=== PATIENT | male | born 1945 | race Caucasian/White ===

== ENCOUNTER → 2016-05-26 | Outpatient (CLI) | payer BC ==
[2016-05-31 09:54] LABS: 18KDIGG BAND REACTIVE (NONREACTIVE); 23KDIGG BAND REACTIVE (NONREACTIVE); 23KDIGM BAND NONREACTIVE (NONREACTIVE); 28KDIGG BAND NONREACTIVE (NONREACTIVE); 30KDIGG BAND NONREACTIVE (NONREACTIVE); 39KDIGG BAND NONREACTIVE (NONREACTIVE); 39KDIGM BAND NONREACTIVE (NONREACTIVE); 41KDIGG BAND REACTIVE (NONREACTIVE); 41KDIGM BAND NONREACTIVE (NONREACTIVE); 45KDIGG BAND REACTIVE (NONREACTIVE); 58KDIGG BAND NONREACTIVE (NONREACTIVE); 66KDIGG BAND REACTIVE (NONREACTIVE); 93KDIGG BAND NONREACTIVE (NONREACTIVE)
== END | disposition home or self-care (01) ==
LOC: C.LAB 16:11
PROVIDERS: ATTEND Family Medicine
DX: A69.20 Lyme disease, unspecified (principal); Z13.9 Encounter for screening, unspecified

== ENCOUNTER → 2017-07-09 | Outpatient (CLI) | payer BC ==
[2017-07-09 12:18] LABS: BASO % 0.5 %; BASO ABS # 0.04 K/uL (0-0.2); EOS % 6.2 %; EOS ABS # 0.46 K/uL (0-0.5); HEMATOCRIT 47.4 % (42-52); HEMOGLOBIN 15.8 g/dL (14.0-18.0); IG# 0.05 K/uL (0.00-0.02); LYMPH % 31.1 %; MEAN CELL VOLUME 86.5 fL (80-100); MEAN CORPUSCULAR HEMOGLOBIN 28.8 pg (25-34); MEAN CORPUSCULAR HGB CONC 33.3 g/dl (32-36); MEAN PLATELET VOLUME 11.2 fL (7.4-10.4); MONO ABS # 0.59 K/uL (0.11-0.59); NEUT % 53.5 %; NEUT ABS # 3.95 K/uL (1.4-6.5); PLATELET COUNT 197 K/uL (130-400); RED CELL DISTRIBUTION WIDTH CV 15.5 % (11.5-14.5); RED CELL DISTRIBUTION WIDTH SD 49.6 fL (36.4-46.3); WHITE BLOOD COUNT 7.39 K/uL (4.8-10.8)
[2017-07-09 12:41] LABS: HEMOGLOBIN A1C 6.3 % (4.5-5.6)
[2017-07-09 12:48] LABS: ALBUMIN 4.1 gm/dl (3.4-5.0); ALKALINE PHOSPHATASE 135 U/L (45-117); ALT/SGPT 50 U/L (12-78); AST/SGOT 22 U/L (15-37); BLOOD UREA NITROGEN 13 mg/dl (7-18); CALCIUM 9.4 mg/dl (8.5-10.1); CARBON DIOXIDE 26 mmol/L (21-32); CHOLESTEROL 132 mg/dl (0-200); CREATININE 1.26 mg/dl (0.60-1.40); GLUCOSE 137 mg/dl (70-99); LDL CHOLESTEROL CALCULATED 39 mg/dl; SODIUM 139 mmol/L (136-145); TOTAL PROTEIN 7.9 gm/dl (6.4-8.2); URIC ACID 5.3 mg/dl (2.6-7.2)
[2017-07-09 12:57] LABS: TRANSFERRIN 252 mg/dl (200-360)
[2017-07-09 13:30] LABS: HEP C IGG 13 YRS+OLDER_RFLX NEG (NEG)
[2017-07-09 13:32] LABS: TESTOSTERONE,TOTAL 418.1 ng/dl
--- NOTE | 2017-07-20 07:12 | CODING QUERY MEDICAL NECESSITY ---
CQSUPPORTING DIAGNOSIS NEEDED A supporting diagnosis is required for the test/procedure performed on this patient in order for us to be reimbursed by the patient's insurance. Please provide a supporting diagnosis for the following test/procedure listed below next to the test name along with your signature. *If there is no additional diagnosis for this patient that would support the following test/procedure please document that below next to the test/procedure. Test(s)/Procedure(s) that require a supporting diagnosis: DOS 07/09/17 PROSTATE SPECIFIC TEST Provider Signature: Date: Thank you Alvina Villegas [employer] Once completed, please kindly fax back to [phone] For questions please call [phone]
== END | disposition home or self-care (01) ==
LOC: C.LAB 09:44
PROVIDERS: ATTEND Family Medicine
DX: R73.09 Other abnormal glucose (principal); E55.9 Vitamin D deficiency, unspecified; D51.9 Vitamin B12 deficiency anemia, unspecified; E78.9 Disorder of lipoprotein metabolism, unspecified; R53.83 Other fatigue

== ENCOUNTER → 2017-11-28 | Outpatient (CLI) | payer BC ==
--- NOTE | 2017-11-28 15:30 | DIAGNOSTIC IMAGING REPORT ---
LUMBAR SPINE W/O CONTRAST HISTORY: Pain. Radiculopathy. LUMBAR RADICULOPATHY TECHNIQUE: Multiplanar multisequence MRI of the lumbar spine was performed without the use of contrast. COMPARISON: None. FINDINGS: For the purpose of the report the L5-S1 disc space will be located on axial image 23 of 25. Moderate to significant degenerative disc changes throughout. Degenerative sclerosis of the vertebral endplates. L1-L2: No significant central canal or neural foraminal narrowing. L2-L3: Minimal broad-based bulging disc. Mild multifactorial narrowing of spinal canal. Neuroforamina are patent bilaterally. L3-L4: Mild/moderate multifactorial narrowing of the spinal canal. Mild narrowing of the neuroforamina bilaterally. L4-L5: Mild right posterior disc herniation. Moderate impact upon the right anterior thecal sac with minimal narrowing right neuroforamina. L5-S1: No significant central canal or neural foraminal narrowing. IMPRESSION: 1. Considerable degenerative disc change at the entire lumbar region. 2. Moderate multifactorial narrowing of the spinal canal L3-L4 with moderate narrowing of the neuroforamina bilaterally. 3. Mild right posterior disc herniation L4-L5 4. Minimal broad-based disc bulge L2-L3 The above report was generated using voice recognition software. It may contain grammatical, syntax or spelling errors. Electronically signed by: Tommy Yeung M.D. 11/28/2017 3:29 PM Dictated Date/Time: 11/28/2017 3:27 PM
== END | disposition home or self-care (01) ==
LOC: C.MRI 13:53
PROVIDERS: ATTEND Family Medicine
DX: M54.16 Radiculopathy, lumbar region (principal); M99.73 Connective tissue and disc stenosis of intervertebral foramina of lumbar region

== ENCOUNTER 2023-01-29 17:10 | Observation (INO) ==
--- NOTE | 2023-01-29 17:21 | ED Triage Note ---
Date of Service January 29, 2023 History of Present Illness This patient was briefly evaluated while in triage. An abbreviated physical exam was performed. This patient is a 77-year-old Male who presents to the ED for evaluation of upper abd pain x 3 hours, vomited x 1, remote history of cholecystectomy. Took at T#3 for dental pain, had a flu shot earlier today and ate chili from [employer]. S/P CABG x 3 in August. Physical Exam GENERAL: NAD CARDIOVASCULAR: RRR RESPIRATORY: CTA ABDOMEN: BS x 4. Nontender to palpation. Initial orders for labs and / or imaging were placed and patient was placed in the waiting area until a bed is available. Please see further documentation for the full ED course.
--- NOTE | 2023-01-29 18:14 | XRay Report ---
XR chest 2V PA/lateral HISTORY: 77 years-old Male upper abdominal pain acute chest and abdominal pain COMPARISON: 09/10/2019 TECHNIQUE: PA and lateral views of the chest FINDINGS: Cardiac silhouette is enlarged. Prior median sternotomy and CABG. Pneumothorax, pleural effusion or a irspace consolidation. Cholecystectomy. Bones appear grossly intact. Eventration of the right hemidia phragm. IMPRESSION: Cardiomegaly without acute process. ACT 112: Negative or not required by law. The above report was generated using voice recognition software. It may contain grammatical, syntax o r spelling errors. Electronically signed by: Gaetano Chowdary M.D. 01/29/2023 6:13 PM
[2023-01-29 19:14] LABS: Basophils # (auto) 0.04 K/uL (0.00-0.20); Basophils % (auto) 0.3 %; Eosinophils # (auto) 0.12 K/uL (0.00-0.50); Eosinophils % (auto) 0.9 %; Hematocrit (blood only) 42.1 % (42.0-52.0); Hemoglobin 13.6 g/dl (14.0-18.0); Immature Granulocytes # (auto) 0.08 K/uL (0.01-0.20); Immature Granulocytes % (auto) 0.6 %; Lymphocytes # (auto) 1.64 K/uL (1.20-3.40); Lymphocytes % (auto) 12.9 %; Mean Corpuscular Hemoglobin 23.8 pg (25.0-34.0); Mean Corpuscular Hgb Conc 32.3 g/dL (32.0-36.0); Mean Corpuscular Volume 73.6 fL (80.0-100.0); Mean Platelet Volume 10.6 fL (9.4-12.4); Monocytes # (auto) 0.73 K/uL (0.11-0.59); Monocytes % (auto) 5.8 %; Neutrophils # (auto) 10.08 K/uL (1.40-6.50); Neutrophils % (auto) 79.5 %; Platelet Count 284 K/uL (130-400); RDW Coefficient of Variation 20.7 % (11.5-14.5); RDW Standard Deviation 52.9 fL (36.4-46.3); Red Blood Count 5.72 M/uL (4.70-6.10); White Blood Count 12.69 K/ul (4.8-10.8)
[2023-01-29 19:29] LABS: Alanine Aminotransferase 80 U/L (7-52); Albumin Globulin Ratio 1.5 (0.9-2); Albumin Level 4.5 gm/dl (3.4-5.0); Alkaline Phosphatase 113 U/L (34-104); Anion Gap 6 (3-11); Aspartate Aminotransferase 115 U/L (13-39); BUN Creatinine Ratio 11.2 (10-20); Bilirubin,Total 0.7 mg/dl (0.2-1.0); Blood Urea Nitrogen 16 mg/dl (6-23); Calcium 9.7 mg/dl (8.6-10.3); Carbon Dioxide 25 mmol/L (21-32); Chloride 109 mmol/L (98-107); Est GFR (Non-African American) 46.6 ml/min; Globulin 3.1 gm/dl (2.5-4.0); Glucose 132 mg/dl (70-99(Fasting)); Lipase 11 U/L (11-82); Potassium 4.4 mmol/L (3.5-5.1); Sodium 140 mmol/L (136-145); Total Protein 7.6 gm/dl (6.0-8.3)
[2023-01-29 19:37] LABS: Troponin I High Sensitivity 45.1 pg/ml (0-20)
[2023-01-29 19:42] LABS: Partial Thromboplastin Ratio 0.9; Partial Thromboplastin Time 25.2 Seconds (21.0-31.0); Prothrombin Time 10.9 Seconds (9.0-12.0)
[2023-01-29 19:43] LABS: Anisocytosis Present; Polychromasia 1+
[2023-01-29] MEDS ORDERED: OPTIRAY 320 100ml IV ONE (20:08)
--- NOTE | 2023-01-29 20:59 | CT Scan Report ---
Exam(s): CT ABDOMEN + PELVIS With Contrast IV Amt: 97ml optiray 320 EXAM: CT Abdomen and Pelvis With Intravenous Contrast CLINICAL HISTORY: Reason for exam: upper abdominal pain. TECHNIQUE: Axial computed tomography images of the abdomen and pelvis with intravenous contrast. CTDI is 24.1 mGy and DLP is 1187.88 mGy-cm. Automated exposure control was utilized for the study. A dose lowering technique was utilized adhering to the principles of ALARA. CONTRAST: Patient received 97ml optiray 320 of IV contrast COMPARISON: No relevant prior studies available. FINDINGS: Lung bases: Unremarkable. No mass. No consolidation. Heart: Cardiomegaly. Mediastinum: Small hiatal hernia. ABDOMEN: Liver: Unremarkable. No mass. Gallbladder and bile ducts: Cholecystectomy. No ductal dilation. Pancreas: Unremarkable. No mass. No ductal dilation. Spleen: Unremarkable. No splenomegaly. Adrenals: Unremarkable. No mass. Kidneys and ureters: No hydronephrosis or delayed nephrogram. Small renal cysts. Stomach and bowel: Diverticulosis, without acute diverticulitis. No small bowel obstruction. No free intraperitoneal air. PELVIS: Appendix: No findings to suggest acute appendicitis. Bladder: Unremarkable. No mass. Reproductive: Unremarkable as visualized. ABDOMEN and PELVIS: Intraperitoneal space: Unremarkable. No free air. No significant fluid collection. Bones/joints: Sternotomy wires. Degenerative changes of the spine. No acute fracture. No dislocation. Soft tissues: Small fat-containing LEFT inguinal hernia. Vasculature: Atherosclerotic changes of the aorta. No abdominal aortic aneurysm. Lymph nodes: Unremarkable. No enlarged lymph nodes. IMPRESSION: 1. Cholecystectomy. 2. Small hiatal hernia. 3. Small fat-containing LEFT inguinal hernia. 4. No hydronephrosis or delayed nephrogram. Small renal cysts. 5. Diverticulosis, without acute diverticulitis. No small bowel obstruction. No free intraperitoneal air. Electronically signed by: Theodore Corado MD 01/29/23 20:58 PM
[2023-01-29] MEDS ORDERED: SODIUM CHLORIDE 0.9% 1,000 ML IV ONE (21:34)
--- NOTE | 2023-01-29 21:36 | Emergency Department Note ---
Impression & Plan Elevated troponin DC ED Provider Note HPI: History obtained from patient. The patient is a 77-year-old gentleman with history of coronary artery disease, presents emergency department with chief complaint of transient abdominal pain. Patient states that earlier today he took some Tylenol with codeine on an empty stomach. Patient states shortly thereafter he developed some cramping in the mid/lower part of his abdomen as well as some nausea. Patient states that this lasted for several hours and then spontaneously resolved. On my initial assessment here in the ED the patient is hemodynamically stable, he states his symptoms are greatly improved however he still does have some mild nausea. He denies any current pain. Patient denies any chest pain or shortness of breath. ROS: - Per HPI Differential Diagnosis: Small bowel obstruction, acute gastritis, acute pancreatitis, acute cholecystitis, choledocholithiasis, acute coronary syndrome, pulmonary embolism, amongst other potential pathologies. *Outpatient medications and allergy history reviewed. *Pertinent external medical records reviewed PE: General: Alert HEENT: Normocephalic, trachea midline Eyes: Extraocular eye movement is intact, no scleral erythema Pulmonary: Clear to auscultation bilaterally, no wheezing Cardio: Regular rate and rhythm GI: Abdomen is soft to palpation : No suprapubic tenderness MSK: No evidence of trauma or malformation of the extremities, no edema Skin: No evidence of rash Neuro: Alert, no focal deficits Psychiatric: Cooperative INDEPENDENT INTERPRETATIONS: hospital monitor: (As interpreted by myself): - An order was placed for continuous cardiac monitoring - Patient was noted to be in sinus rhythm with a rate of 65 EKG: (As interpreted by myself): Rate: 64 Rhythm: Normal sinus rhythm Intervals: Within normal limits ST changes: No ST elevation Time: 0704 EKG #2: (As interpreted by myself): Rate: 66 Rhythm: Normal sinus rhythm Intervals: Within normal limits ST changes: No ST elevation Time: 2256 Interventions provided in ED: -Aspirin, IV heparin bolus and drip Medical Decision Making: IV was established lab work obtained, patient was placed on residential monitor. Lab work shows a leukocytosis of 12.69, hemoglobin is stable at 13.6, platelet count is normal, CMP does not show any critical findings, there is a mild transaminitis with AST of 115, ALT of 80, alk phos 113. Initial high- sensitivity troponin is only mildly elevated at 45. EKG per my interpretation does not show any acute ischemic changes. CT imaging of the abdomen pelvis was obtained that does not show any evidence of any acute surgical process. No evidence of any biliary ductal dilatation, patient is noted to be status post ch olecystectomy. Delta troponin was obtained given the patient's initial mildly elevated troponin, delta troponin was significantly elevated at 704.5, repeat EKG was also obtained at this time that does not show any acute ischemic changes/changes from previous EKG. On my reassessment patient remains pain-free, given significant elevation in troponin/delta troponin I do have suspicion that the patient's severe abdominal discomfort from earlier this afternoon may have represented ACS. Case was discussed with on-call cardiology, Dr. Rodriguez, and the patient was placed on a heparin drip and given aspirin. Case was discussed with the on-call hospitalist, Dr. العراقي, and the patient was placed to the hospitalist service in stable condition for further management. Consultants/Discussions held with other healthcare providers: -Hospitalist, Dr. العراقي -Cardiology, Dr. Rodriguez Disposition discussion held by myself with: -Patient * CRITICAL CARE TIME: (46) minutes -Management of NSTEMI with elevated troponin requiring initiation of heparin drip, time spent at the bedside, interpretation of diagnostic studies including multiple EKGs, discussion with other physicians including on-call cardiology as well as the hospitalist service for arrangement of admission Diagnosis: 1. NSTEMI, acute 2. Abdominal pain, acute 3. Transaminitis, acute, mild 4. Leukocytosis, acute Disposition: Admission Tommy Shelley DO Emergency Medicine Past Med/Surg History Medical History (Updated 01/30/23 @ 02:31 by Tommy Shelley DO) CAD (coronary artery disease) s/p BMS x 1 1999 Carotid artery stenosis Degenerative disc disease L4-L5 Diabetes mellitus, type 2 Encounter for pre-operative examination Exertional angina GERD (gastroesophageal reflux disease) Hypertension Hypothyroidism Umbilical hernia Surgical History H/O ventral hernia repair (12/18/18) Diagnostic Laprascopy and Open Ventral Hernia Repair Dr. Cowan 12-18-18 History of cardiac cath 2/2 abnormal stress test ~1999 AT [facility]. 1 stent to proximal RCA. History of cholecystectomy LAP History of colonoscopy History of coronary artery bypass graft 08/17/2022 History of heart artery stent x 1 to RCA 2002 History of herniorrhaphy RIGHT INGUINAL History of open reduction and internal fixation (ORIF) procedure RIGHT ANKLE History of ventral hernia repair 10/09/18 [facility] Hx of bilateral cataract extraction S/P CABG (coronary artery bypass graft) Family History Grandfather Stomach cancer Denies family history of Ovarian cancer Prostate cancer Myocardial infarction Breast cancer Lung cancer Colorectal cancer Social History Smoking Status: Never smoker Second Hand Exposure: No; Do You Dip or Chew Tobacco: No; Hx Alcohol Use: No Hx Substance Use: No Preferred Language: Hungarian Communication Ability: Effective Visual Impairment: No Limitations Medical Asst Required: No Beliefs That Will Affect Care: None marital status: / Current Living Situation: Alone and Personal Care Facility current occupational status: retired 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 How many Children do You have: 0 Feels Safe at Home: Yes Childhood Exposure to Second-Hand Smoke: No caffeine: Yes Dental Care, Regularly: Yes Physical Activity Frequency: 1-2 Times per Week Seatbelt Use: always Sunscreen Use: Yes Assistive Devices: Glasses Allergies Allergies Allergy/AdvReac Type Severity Reaction Status Date / Time benzoyl peroxide Allergy Intermediate Rash Verified 11/14/22 11:27 adhesive tape AdvReac Mild Rash Verified 11/14/22 11:27 Home Meds Home Medications Medication Instructions Recorded Confirmed docusate sodium 100 mg capsule 100 mg PO DAILY PRN Constipation 09/05/22 (Colace) ondansetron HCl 4 mg tablet 4 mg PO Q8H PRN Nausea And Vomiting 09/05/22 acetaminophen 500 mg tablet 1,000 mg PO Q8 01/29/23 01/29/23 (Tylenol Extra Strength) aspirin 81 mg tablet,delayed 81 mg PO QPM 01/29/23 01/29/23 release cholecalciferol (vitamin D3) 125 125 mcg PO QAM 01/29/23 01/29/23 mcg (5,000 unit) tablet (Vitamin D3) coenzyme Q10 100 mg capsule 100 mg PO QAM 01/29/23 01/29/23 (CoQ-10) glucosamine sulf dipot 1 cap PO QAM 01/29/23 01/29/23 chlr,msm,chond 550 mg-C 30 mg-gracia 1 mg capsule (Glucosamine Chondroitin) irbesartan 75 mg tablet 75 mg PO QAM 01/29/23 01/29/23 metoprolol succinate 100 mg 100 mg PO QPM 01/29/23 01/29/23 tablet,extended release 24 hr hcpbobjfjxhc-zeygleao-ximirm tablet 1 tab PO QAM 01/29/23 01/29/23 rosuvastatin 20 mg tablet 20 mg PO QPM 01/29/23 01/29/23 semaglutide 0.25 mg or 0.5 mg (2 40 mg subcut WK 01/29/23 01/29/23 mg/1.5 mL) subcutaneous pen injector tamsulosin 0.4 mg capsule 0.4 mg PO QPM 01/29/23 01/29/23 Previous Rx's Medication Instructions Recorded levothyroxine 75 mcg tablet 75 mcg PO QAM #90 tabs 08/08/22 (Synthroid) omeprazole 20 mg capsule,delayed 20 mg PO DAILY #90 caps 08/08/22 release Results & Data (ED) Vital Signs Vital Signs - 24 hr 01/29/23 17:17 01/29/23 19:06 01/29/23 22:00 Temperature 36.8 C Temperature Source Temporal Artery Scan Pulse Rate 98 H Pulse Rate [Right Finger] 70 64 Pulse Rate from SpO2 Sensor Pulse Rhythm [Right Finger] Regular Regular Pulse Strength [Right Finger] Normal Normal Respiratory Rate 20 20 16 Respiratory Effort / Characteristics Non-Labored Spontaneous Non-Labored Spontaneous Respiratory Depth Normal Normal Respiratory Pattern Regular Regular Blood Pressure 167/79 H Blood Pressure [Right Arm] 163/75 H 167/92 H Blood Pressure Mean 108 Blood Pressure Mean [Right Arm] 104 117 Blood Pressure Position [Right Arm] Sitting Pulse Oximetry 100 99 96 Oxygen Delivery Method Room Air Room Air Room Air Sepsis Recent Fever Within 48 Hours No Sepsis New/Unexplained Change in Mental Status N/A Sepsis Action Taken by Nursing No Action Required 01/29/23 23:00 01/29/23 23:32 01/30/23 00:00 Temperature Temperature Source Pulse Rate 73 71 Pulse Rate [Right Finger] Pulse Rate from SpO2 Sensor 68 Pulse Rhythm [Right Finger] Pulse Strength [Right Finger] Respiratory Rate 14 18 Respiratory Effort / Characteristics Respiratory Depth Respiratory Pattern Blood Pressure 174/109 H 189/90 H Blood Pressure [Right Arm] Blood Pressure Mean 130 123 Blood Pressure Mean [Right Arm] Blood Pressure Position [Right Arm] Pulse Oximetry 98 100 Oxygen Delivery Method Sepsis Recent Fever Within 48 Hours Sepsis New/Unexplained Change in Mental Status Sepsis Action Taken by Nursing Laboratory Data 01/29/23 18:57 01/29/23 18:57 Lab Results 01/29/23 01/29/23 01/29/23 Range/Units 18:57 18:57 18:57 WBC 12.69 H (4.8-10.8) K/ul RBC 5.72 (4.70-6.10) M/uL Hgb 13.6 L (14.0-18.0) g/dl Hct 42.1 (42.0-52.0) % MCV 73.6 L (80.0-100.0) fL MCH 23.8 L (25.0-34.0) pg MCHC 32.3 (32.0-36.0) g/dL RDW Std Deviation 52.9 H (36.4-46.3) fL RDW Coeff of Jenna 20.7 H (11.5-14.5) % Plt Count 284 (130-400) K/uL MPV 10.6 (9.4-12.4) fL Immature Gran % (Auto) 0.6 % Neut % (Auto) 79.5 % Lymph % (Auto) 12.9 % Jerome % (Auto) 5.8 % Eos % (Auto) 0.9 % Baso % (Auto) 0.3 % Neut # (Auto) 10.08 H (1.40-6.50) K/uL Lymph # (Auto) 1.64 (1.20-3.40) K/uL Jerome # (Auto) 0.73 H (0.11-0.59) K/uL Eos # (Auto) 0.12 (0.00-0.50) K/uL Baso # (Auto) 0.04 (0.00-0.20) K/uL Immature Gran # (Auto) 0.08 (0.01-0.20) K/uL Polychromasia 1+ Anisocytosis Present PT 10.9 (9.0-12.0) Seconds INR 1.0 (0.9-1.1) APTT 25.2 (21.0-31.0) Seconds PTT Ratio 0.9 Sodium 140 (136-145) mmol/L Potassium 4.4 (3.5-5.1) mmol/L Chloride 109 H (98-107) mmol/L Carbon Dioxide 25 (21-32) mmol/L Anion Gap 6 (3-11) BUN 16 (6-23) mg/dl Creatinine 1.43 H (0.6-1.4) mg/dl Est Cr Clr Drug Dosing Not Reportable Est GFR ( Amer) 54.0 ml/min Est GFR (Non-Af Amer) 46.6 ml/min BUN/Creatinine Ratio 11.2 (10-20) Glucose 132 H (70-99(Fasting)) mg/dl Calcium 9.7 (8.6-10.3) mg/dl Magnesium (1.7-2.4) mg/dl Total Bilirubin 0.7 (0.2-1.0) mg/dl AST 115 H (13-39) U/L ALT 80 H (7-52) U/L Alkaline Phosphatase 113 H (34-104) U/L Total Creatine Kinase (30-223) U/L Troponin I High Sens 45.1 H (0-20) pg/ml Total Protein 7.6 (6.0-8.3) gm/dl Albumin 4.5 (3.4-5.0) gm/dl Globulin 3.1 (2.5-4.0) gm/dl Albumin/Globulin Ratio 1.5 (0.9-2) Lipase 11 (11-82) U/L 01/29/23 Range/Units 21:50 WBC (4.8-10.8) K/ul RBC (4.70-6.10) M/uL Hgb (14.0-18.0) g/dl Hct (42.0-52.0) % MCV (80.0-100.0) fL MCH (25.0-34.0) pg MCHC (32.0-36.0) g/dL RDW Std Deviation (36.4-46.3) fL RDW Coeff of Jenna (11.5-14.5) % Plt Count (130-400) K/uL MPV (9.4-12.4) fL Immature Gran % (Auto) % Neut % (Auto) % Lymph % (Auto) % Jerome % (Auto) % Eos % (Auto) % Baso % (Auto) % Neut # (Auto) (1.40-6.50) K/uL Lymph # (Auto) (1.20-3.40) K/uL Jerome # (Auto) (0.11-0.59) K/uL Eos # (Auto) (0.00-0.50) K/uL Baso # (Auto) (0.00-0.20) K/uL Immature Gran # (Auto) (0.01-0.20) K/uL Polychromasia Anisocytosis PT (9.0-12.0) Seconds INR (0.9-1.1) APTT (21.0-31.0) Seconds PTT Ratio Sodium (136-145) mmol/L Potassium (3.5-5.1) mmol/L Chloride (98-107) mmol/L Carbon Dioxide (21-32) mmol/L Anion Gap (3-11) BUN (6-23) mg/dl Creatinine (0.6-1.4) mg/dl Est Cr Clr Drug Dosing Est GFR ( Amer) ml/min Est GFR (Non-Af Amer) ml/min BUN/Creatinine Ratio (10-20) Glucose (70-99(Fasting)) mg/dl Calcium (8.6-10.3) mg/dl Magnesium 2.1 (1.7-2.4) mg/dl Total Bilirubin (0.2-1.0) mg/dl AST (13-39) U/L ALT (7-52) U/L Alkaline Phosphatase (34-104) U/L Total Creatine Kinase 215 (30-223) U/L Troponin I High Sens 704.5 H* D (0-20) pg/ml Total Protein (6.0-8.3) gm/dl Albumin (3.4-5.0) gm/dl Globulin (2.5-4.0) gm/dl Albumin/Globulin Ratio (0.9-2) Lipase (11-82) U/L Administered Medications Heparin Sodium/Dextrose (Heparin Sodium/Dextrose) 25,000 units in 500 mls @ 26 mls/hr IV .[id number] [facility]; Protocol Stop: 02/28/23 22:59 Last Admin: 01/30/23 01:05 Dose: 1,300 units/hr, 26 mls/hr Documented By: LISSETTE Co-signed By: MARTHA Tramadol HCl (Tramadol Hcl 50 Mg Tablet) 50 mg PO Q4H PRN PRN Reason: Dental Pain Stop: 03/01/23 00:43 Last Admin: 01/30/23 01:49 Dose: 50 mg Documented By: LISSETTE Discontinued Medications Aspirin (Aspirin Chew 324 Mg) 324 mg PO NOW STA Stop: 01/29/23 23:19 Last Admin: 01/30/23 01:05 Dose: 324 mg Documented By: LISSETTE Heparin Sodium (Porcine) (Heparin Sod (Porcine) 1000 Unit/Ml) 1 units IV NOW ONE Stop: 01/29/23 23:01 Last Admin: 01/30/23 01:04 Dose: 6,000 units Documented By: LISSETTE Co-signed By: MARTHA Sodium Chloride (Nss) 1,000 mls @ 999 mls/hr IV .Q1H1M ONE Stop: 01/29/23 22:34 Last Infusion: 01/30/23 01:10 Dose: 0 mls/hr Documented By: Admin: 01/29/23 21:43 Dose: 999 mls/hr Documented By: LISSETTE Ioversol (Optiray 320 100ml) 97 ml IV ONCE ONE Stop: 01/29/23 20:09 Last Admin: 01/29/23 20:08 Dose: 97 ml Documented By: TORITO Imaging Data Radiologist's Impression: Abdomen/Pelvis CT 01/29/23 17:21 Exam(s): CT ABDOMEN + PELVIS With Contrast IV Amt: 97ml optiray 320 EXAM: CT Abdomen and Pelvis With Intravenous Contrast CLINICAL HISTORY: Reason for exam: upper abdominal pain. TECHNIQUE: Axial computed tomography images of the abdomen and pelvis with intravenous contrast. CTDI is 24.1 mGy and DLP is 1187.88 mGy-cm. Automated exposure control was utilized for the study. A dose lowering technique was utilized adhering to the principles of ALARA. CONTRAST: Patient received 97ml optiray 320 of IV contrast COMPARISON: No relevant prior studies available. FINDINGS: Lung bases: Unremarkable. No mass. No consolidation. Heart: Cardiomegaly. Mediastinum: Small hiatal hernia. ABDOMEN: Liver: Unremarkable. No mass. Gallbladder and bile ducts: Cholecystectomy. No ductal dilation. Pancreas: Unremarkable. No mass. No ductal dilation. Spleen: Unremarkable. No splenomegaly. Adrenals: Unremarkable. No mass. Kidneys and ureters: No hydronephrosis or delayed nephrogram. Small renal cysts. Stomach and bowel: Diverticulosis, without acute diverticulitis. No small bowel obstruction. No free intraperitoneal air. PELVIS: Appendix: No findings to suggest acute appendicitis. Bladder: Unremarkable. No mass. Reproductive: Unremarkable as visualized. ABDOMEN and PELVIS: Intraperitoneal space: Unremarkable. No free air. No significant fluid collection. Bones/joints: Sternotomy wires. Degenerative changes of the spine. No acute fracture. No dislocation. Soft tissues: Small fat-containing LEFT inguinal hernia. Vasculature: Atherosclerotic changes of the aorta. No abdominal aortic aneurysm. Lymph nodes: Unremarkable. No enlarged lymph nodes. IMPRESSION: 1. Cholecystectomy. 2. Small hiatal hernia. 3. Small fat-containing LEFT inguinal hernia. 4. No hydronephrosis or delayed nephrogram. Small renal cysts. 5. Diverticulosis, without acute diverticulitis. No small bowel obstruction. No free intraperitoneal air. Electronically signed by: Theodore Corado MD 01/29/23 20:58 PM Chest X-Ray 01/29/23 17:22 XR chest 2V PA/lateral HISTORY: 77 years-old Male upper abdominal pain acute chest and abdominal pain COMPARISON: 09/10/2019 TECHNIQUE: PA and lateral views of the chest FINDINGS: Cardiac silhouette is enlarged. Prior median sternotomy and CABG. Pneumothorax, pleural effusion or airspace consolidation. Cholecystectomy. Bones appear grossly intact. Eventration of the right hemidiaphragm. IMPRESSION: Cardiomegaly without acute process. ACT 112: Negative or not required by law. The above report was generated using voice recognition software. It may contain grammatical, syntax or spelling errors. Electronically signed by: Gaetano Chowdary M.D. 01/29/2023 6:13 PM Discharge Plan Visit Data Chief Complaint: Abdominal Pain Stated Complaint: ABDOMINAL PAIN ED Provider: Tommy Shelley Discharge Problem: Elevated troponin Patient Disposition: Admitted As Inpatient Discharge Instructions Interventions: ED Discharge Assessment Last Done: 01/30/23 00:43
[2023-01-29] MEDS ORDERED: Heparin IV Adult Wt-Based Standard WITH Bolus Protocol IV STA (22:45)
[2023-01-29 22:48] LABS: Troponin I High Sensitivity 704.5 pg/ml (0-20)
[2023-01-29] MEDS ORDERED: HEPARIN SOD (PORCINE) 1000 UNIT/ML IV ONE (23:00)
[2023-01-29] MEDS ORDERED: HEPARIN SODIUM/DEXTROSE 25,000 UNITS/500 ML BAG IV SCH (23:00)
[2023-01-29] MEDS ORDERED: ASPIRIN CHEW 324 MG PO STA (23:18)
--- NOTE | 2023-01-30 00:06 | History & Physical Report ---
Date of Service January 30, 2023 Assessment & Plan (1) Abdominal pain: Plan: 77yo male with history of CAD s/p RCA stent, s/p CABG x 3V presenting with acute episode of abdominal cramping that occurred today around 14:00. Pain severe 7/10, intermittent, associated diaphoresis, nausea and vomiting. Labs as above with mild neutrophil predominant leukocytosis with WBC=12.69, mildly elevated PBG=471, ALT=80, IC=675. Tbili is normal. Troponin at 18:57 mildly elevated at 45.1 with repeat at 21:50 increased to 704.5. Etiology of abdominal pain unknown. Very atypical pain description for cardiac event, however, concerning given patient's history and troponin level. ?cholecystitis, choledocholithiasis given abnormal liver studies. Patient currently without chest or abdominal discomfort. -Admit to medical with telemetry -Trend troponin -Check 2D echocardiogram to assess for new WMA -Repeat LFTs in AM -Check CK -Heparin gtt -EKG with chest pain as needed -Nitro as needed -Cardiology consultation appreciated -Continue ASA 81mg po daily -Continue Metoprolol 100mg po qPM -Hold Irbesartan for now - resume pending results of Cr with AM labs -Continue Crestor (2) Elevated troponin: Plan: Patient with known CAD. Troponin increase 45.- --> 704.5. No acute ischemic changes present on EKG. Presently without discomfort. -property assessment monitor -Trend troponin -Heparin gtt -Continue home cardiac medications - ASA, Metoprolol, Crestor -Holding Irbesartan for now (3) Hyperlipidemia: Plan: Chronic. Stable -Continue Crestor (4) Diabetes: Plan: Chronic. Well controlled. Last HgbA1C on 09/05/22 = 5.9. Patient is on Semaglutide - is due for a shot today -Hold Semaglutide for now -Lantus 5u BID -ISS (5) Hypertension: Plan: Blood pressure elevated -Continue Metoprolol -Hold Irbesartan for now, resume if Cr improves in AM (6) GERD (gastroesophageal reflux disease): Plan: Chronic. Stable -Protonix 40mg po daily while inpatient Dental pain -Patient is scheduled for a root canal on 01/31/23 AM -Consider abdominal pain as possible reaction to his Codeine pill? -Tramadol 50mg po q4 hours as needed for pain F/E/N - Saline lock. Electrolytes WNL. AHA/CC diet as tolerated Ppx - On heparin gtt. Protonix 40mg po daily Code - DNR/DNI per discussion with patient Dispo - Admit to medical with telemetry History of Present Illness Chief Complaint: abdominal pain Primary Care Provider: Cristobal Winter MD Jose Manuel Rdz is a pleasant 77yo male with history of CAD s/p BMS to pRCA placed in 2001. Patient had an abnormal stress echo with subsequent cardiac catheterization performed on 07/21/2022 which revealed severe multivessel disease. He had a CABG x 3V (OLSON-LAD, SVG-ramus, SVG-OM - performed at [facility] [place]. Buchanan) on 08/17/2022. 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 Patient was in his usual state of health today. He had a flu shot around 13:00 then he then took a Tylenol #3 tablet with Codeine for his ongoing tooth pain on an empty stomach. He then had some chili to eat from [employer]. Shortly after that around 14:00 he developed severe mid and lower abdominal pain and cramping, 7/10 in intensity, intermittent and non-radiating. He had some diaphoresis as well as nausea with one episode of non-bloody/non-bilious vomiting. The symptoms lasted approximately 4-6 hours and have since resolved. He denies chest pain, cough, SOB, dizziness or syncope. No urinary complaints. No edema, orthopnea or weight gain. No additional complaints at this time. Presently chest pain free. In the ER he is afebrile, HD stable, NAD ER Course: ASA ordered Heparin gtt ordered Allergies Allergy/AdvReac Type Severity Reaction Status Date / Time benzoyl peroxide Allergy Intermediate Rash Verified 11/14/22 11:27 adhesive tape AdvReac Mild Rash Verified 11/14/22 11:27 Home Medications Medication Instructions Recorded Confirmed Type levothyroxine 75 mcg tablet 75 mcg PO QAM #90 tabs 08/08/22 01/29/23 Rx (Synthroid) omeprazole 20 mg capsule,delayed 20 mg PO DAILY #90 caps 08/08/22 01/29/23 Rx release docusate sodium 100 mg capsule 100 mg PO DAILY PRN Constipation 09/05/22 1 History (Colace) ondansetron HCl 4 mg tablet 4 mg PO Q8H PRN Nausea And Vomiting 09/05/22 01/29/23 History acetaminophen 500 mg tablet 1,000 mg PO Q8 01/29/23 01/29/23 History (Tylenol Extra Strength) aspirin 81 mg tablet,delayed 81 mg PO QPM 01/29/23 01/29/23 History release cholecalciferol (vitamin D3) 125 125 mcg PO QAM 01/29/23 01/29/23 History mcg (5,000 unit) tablet (Vitamin D3) coenzyme Q10 100 mg capsule 100 mg PO QAM 01/29/23 01/29/23 History (CoQ-10) glucosamine sulf dipot 1 cap PO QAM 01/29/23 01/29/23 History chlr,msm,chond 550 mg-C 30 mg-gracia 1 mg capsule (Glucosamine Chondroitin) irbesartan 75 mg tablet 75 mg PO QAM 01/29/23 01/29/23 History metoprolol succinate 100 mg 100 mg PO QPM 01/29/23 01/29/23 History tablet,extended release 24 hr nqqypbtcpxsq-rzayjxos-gyehxp tablet 1 tab PO QAM 01/29/23 01/29/23 History rosuvastatin 20 mg tablet 20 mg PO QPM 01/29/23 01/29/23 History semaglutide 0.25 mg or 0.5 mg (2 40 mg subcut WK 01/29/23 01/29/23 History mg/1.5 mL) subcutaneous pen injector tamsulosin 0.4 mg capsule 0.4 mg PO QPM 01/29/23 01/29/23 History Past Med/Surg History Medical History (Updated 01/30/23 @ 00:29 by Kiley العراقي DO) CAD (coronary artery disease) s/p BMS x 1 1999 Carotid artery stenosis Degenerative disc disease L4-L5 Diabetes mellitus, type 2 Encounter for pre-operative examination Exertional angina GERD (gastroesophageal reflux disease) Hypertension Hypothyroidism Umbilical hernia Surgical History H/O ventral hernia repair (12/18/18) Diagnostic Laprascopy and Open Ventral Hernia Repair Dr. Cowan 12-18-18 History of cardiac cath 2/2 abnormal stress test ~1999 AT [facility]. 1 stent to proximal RCA. History of cholecystectomy LAP History of colonoscopy History of coronary artery bypass graft 08/17/2022 History of heart artery stent x 1 to RCA 2001 History of herniorrhaphy RIGHT INGUINAL History of open reduction and internal fixation (ORIF) procedure RIGHT ANKLE History of ventral hernia repair 10/09/18 [facility] Hx of bilateral cataract extraction S/P CABG (coronary artery bypass graft) Family History Grandfather Stomach cancer Denies family history of Ovarian cancer Prostate cancer Myocardial infarction Breast cancer Lung cancer Colorectal cancer Social History Smoking Status: Never smoker Second Hand Exposure: No; Do You Dip or Chew Tobacco: No; Hx Alcohol Use: No Hx Substance Use: No Preferred Language: Icelandic Communication Ability: Effective Visual Impairment: No Limitations Sewing Room Supervisor Required: No Beliefs That Will Affect Care: None marital status: / Current Living Situation: Alone and Personal Care Facility current occupational status: retired 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 How many Children do You have: 0 Feels Safe at Home: Yes Childhood Exposure to Second-Hand Smoke: No caffeine: Yes Dental Care, Regularly: Yes Physical Activity Frequency: 1-2 Times per Week Seatbelt Use: always Sunscreen Use: Yes Assistive Devices: Glasses Review of Systems Review of Systems: All systems reviewed & are unremarkable except as noted in HPI & below Physical Exam Physical Exam: General: patient resting comfortably, NAD, non-toxic in appearance, AA&O x 4 Skin: warm, dry, intact, no rashes or lesions HEENT: NC/AT, PERRL, EOMI, anicteric sclera, conjunctiva without injection, external ear normal to inspection and nontender, nares patent, moist mucus membranes, dentition intact, no oropharyngeal lesions, neck supple, trachea midline, no LAD, no thyromegaly, no JVD, right sided carotid bruit Heart: +S1/S2, regular, no m/r/g, well healed sternotomy scar with stable sternum Lungs: equal air entry bilaterally, no rales/rhonchi/wheezes Abd: +BS, soft, NT/ND, no masses/organomegaly/ascites Ext: warm, 2+ pulses in UE/LE bilaterally, no clubbing/cyanosis or edema Neuro: nonfocal, patient AA&O x 4, speech intact, no facial droop, moving all extremities on command with equal strength 5/5 Results & Data Results & Data Vital Signs (Past 12 Hours) Vital Signs Temp Pulse Pulse Resp BP BP Pulse Ox 01/29/23 22:00 64 16 167/92 H 96 01/29/23 19:06 70 20 163/75 H 99 01/29/23 17:17 36.8 C 98 H 20 167/79 H 100 O2 Del Method 01/29/23 22:00 Room Air 01/29/23 19:06 Room Air 01/29/23 17:17 Room Air Laboratory Results Laboratory Results WBC 12.69 K/ul (4.8-10.8) H 01/29/23 18:57 RBC 5.72 M/uL (4.70-6.10) 01/29/23 18:57 Hgb 13.6 g/dl (14.0-18.0) L 01/29/23 18:57 Hct 42.1 % (42.0-52.0) 01/29/23 18:57 MCV 73.6 fL (80.0-100.0) L 01/29/23 18:57 MCH 23.8 pg (25.0-34.0) L 01/29/23 18:57 MCHC 32.3 g/dL (32.0-36.0) 01/29/23 18:57 RDW Std Deviation 52.9 fL (36.4-46.3) H 01/29/23 18:57 RDW Coeff of Jenna 20.7 % (11.5-14.5) H 01/29/23 18:57 Plt Count 284 K/uL (130-400) 01/29/23 18:57 MPV 10.6 fL (9.4-12.4) 01/29/23 18:57 Immature Gran % (Auto) 0.6 % 01/29/23 18:57 Neut % (Auto) 79.5 % 01/29/23 18:57 Lymph % (Auto) 12.9 % 01/29/23 18:57 Payne % (Auto) 5.8 % 01/29/23 18:57 Eos % (Auto) 0.9 % 01/29/23 18:57 Baso % (Auto) 0.3 % 01/29/23 18:57 Neut # (Auto) 10.08 K/uL (1.40-6.50) H 01/29/23 18:57 Lymph # (Auto) 1.64 K/uL (1.20-3.40) 01/29/23 18:57 Payne # (Auto) 0.73 K/uL (0.11-0.59) H 01/29/23 18:57 Eos # (Auto) 0.12 K/uL (0.00-0.50) 01/29/23 18:57 Baso # (Auto) 0.04 K/uL (0.00-0.20) 01/29/23 18:57 Immature Gran # (Auto) 0.08 K/uL (0.01-0.20) 01/29/23 18:57 Polychromasia 1+ 01/29/23 18:57 Anisocytosis Present 01/29/23 18:57 PT 10.9 Seconds (9.0-12.0) 01/29/23 18:57 INR 1.0 (0.9-1.1) 01/29/23 18:57 APTT 25.2 Seconds (21.0-31.0) 01/29/23 18:57 PTT Ratio 0.9 01/29/23 18:57 Sodium 140 mmol/L (136-145) 01/29/23 18:57 Potassium 4.4 mmol/L (3.5-5.1) 01/29/23 18:57 Chloride 109 mmol/L (98-107) H 01/29/23 18:57 Carbon Dioxide 25 mmol/L (21-32) 01/29/23 18:57 Anion Gap 6 (3-11) 01/29/23 18:57 BUN 16 mg/dl (6-23) 01/29/23 18:57 Creatinine 1.43 mg/dl (0.6-1.4) H 01/29/23 18:57 Est Cr Clr Drug Dosing Not Reportable 01/29/23 18:57 Est GFR ( Amer) 54.0 ml/min 01/29/23 18:57 Est GFR (Non-Af Amer) 46.6 ml/min 01/29/23 18:57 BUN/Creatinine Ratio 11.2 (10-20) 01/29/23 18:57 Glucose 132 mg/dl (70-99(Fasting)) H 01/29/23 18:57 Calcium 9.7 mg/dl (8.6-10.3) 01/29/23 18:57 Total Bilirubin 0.7 mg/dl (0.2-1.0) 01/29/23 18:57 AST 115 U/L (13-39) H 01/29/23 18:57 ALT 80 U/L (7-52) H 01/29/23 18:57 Alkaline Phosphatase 113 U/L (34-104) H 01/29/23 18:57 Troponin I High Sens 704.5 pg/ml (0-20) H* D 01/29/23 21:50 Total Protein 7.6 gm/dl (6.0-8.3) 01/29/23 18:57 Albumin 4.5 gm/dl (3.4-5.0) 01/29/23 18:57 Globulin 3.1 gm/dl (2.5-4.0) 01/29/23 18:57 Albumin/Globulin Ratio 1.5 (0.9-2) 01/29/23 18:57 Lipase 11 U/L (11-82) 01/29/23 18:57 Impressions Abdomen/Pelvis CT 01/29/23 17:21 Exam(s): CT ABDOMEN + PELVIS With Contrast IV Amt: 97ml optiray 320 EXAM: CT Abdomen and Pelvis With Intravenous Contrast CLINICAL HISTORY: Reason for exam: upper abdominal pain. TECHNIQUE: Axial computed tomography images of the abdomen and pelvis with intravenous contrast. CTDI is 24.1 mGy and DLP is 1187.88 mGy-cm. Automated exposure control was utilized for the study. A dose lowering technique was utilized adhering to the principles of ALARA. CONTRAST: Patient received 97ml optiray 320 of IV contrast COMPARISON: No relevant prior studies available. FINDINGS: Lung bases: Unremarkable. No mass. No consolidation. Heart: Cardiomegaly. Mediastinum: Small hiatal hernia. ABDOMEN: Liver: Unremarkable. No mass. Gallbladder and bile ducts: Cholecystectomy. No ductal dilation. Pancreas: Unremarkable. No mass. No ductal dilation. Spleen: Unremarkable. No splenomegaly. Adrenals: Unremarkable. No mass. Kidneys and ureters: No hydronephrosis or delayed nephrogram. Small renal cysts. Stomach and bowel: Diverticulosis, without acute diverticulitis. No small bowel obstruction. No free intraperitoneal air. PELVIS: Appendix: No findings to suggest acute appendicitis. Bladder: Unremarkable. No mass. Reproductive: Unremarkable as visualized. ABDOMEN and PELVIS: Intraperitoneal space: Unremarkable. No free air. No significant fluid collection. Bones/joints: Sternotomy wires. Degenerative changes of the spine. No acute fracture. No dislocation. Soft tissues: Small fat-containing LEFT inguinal hernia. Vasculature: Atherosclerotic changes of the aorta. No abdominal aortic aneurysm. Lymph nodes: Unremarkable. No enlarged lymph nodes. IMPRESSION: 1. Cholecystectomy. 2. Small hiatal hernia. 3. Small fat-containing LEFT inguinal hernia. 4. No hydronephrosis or delayed nephrogram. Small renal cysts. 5. Diverticulosis, without acute diverticulitis. No small bowel obstruction. No free intraperitoneal air. Electronically signed by: Theodore Corado MD 01/29/23 20:58 PM ====== Chest X-Ray 01/29/23 17:22 XR chest 2V PA/lateral HISTORY: 77 years-old Male upper abdominal pain acute chest and abdominal pain COMPARISON: 09/10/2019 TECHNIQUE: PA and lateral views of the chest FINDINGS: Cardiac silhouette is enlarged. Prior median sternotomy and CABG. Pneumothorax, pleural effusion or airspace consolidation. Cholecystectomy. Bones appear grossly intact. Eventration of the right hemidiaphragm. IMPRESSION: Cardiomegaly without acute process. ACT 112: Negative or not required by law. The above report was generated using voice recognition software. It may contain grammatical, syntax or spelling errors. Electronically signed by: Gaetano Chowdary M.D. 01/29/2023 6:13 PM ECG Additional Comments: EKG - per my interpretation - study shows NSR at 66bpm, CH=478, QRS=92, TXs=557, non-specific lateral ST changes, no elevation or evidence of acute ischemia Repeat EKG stable and largely unchanged -no dynamic changes PG Care Time/CCT Total # of Minutes Spent Total Time Spent with Patient: Total time spent is greater than 50% in coordination of care (as documented) at patient's floor/unit and/or counseling patient: Coding Level of Care Code 68403 INT INP/OBS CARE 3/75MIN Diagnoses Abdominal pain R10.9 Elevated troponin R79.89 Hyperlipidemia E78.5 Diabetes E11.9 Hypertension I10 GERD (gastroesophageal reflux disease) K21.9
[2023-01-30] MEDS ORDERED: CARBOHYDRATES FOR HYPOGLYCEMIA PO PRN (00:44)
[2023-01-30] MEDS ORDERED: GLUCAGON FOR INJ 1 MG VIAL SQ PRN (00:44)
[2023-01-30] MEDS ORDERED: POLYETHYLENE (MIRALAX) 17 GM PACK PO PRN (00:44)
[2023-01-30] MEDS ORDERED: DOCUSATE SODIUM 100 MG CAP PO PRN (00:44)
[2023-01-30] MEDS ORDERED: DEXTROSE 50% 50 ML SYRINGE IV PRN (00:44)
[2023-01-30] MEDS ORDERED: GLUCOSE 10 TAB/TUBE PO PRN (00:44)
[2023-01-30] MEDS ORDERED: NITROGLYCERIN SL 0.4 MG/TAB TAB SL PRN (00:44)
[2023-01-30] MEDS ORDERED: ONDANSETRON INJ 2 MG/ML 2 ML VIAL IV PRN (00:44)
[2023-01-30] MEDS ORDERED: GLUCOSE 40% GEL 15 GM TUBE PO PRN (00:44)
[2023-01-30 01:04] LABS: Magnesium 2.1 mg/dl (1.7-2.4)
[2023-01-30] MEDS: traMADol HCL 50 MG TABLET PO PRN ×2 (01:49→13:54)
[2023-01-30] MEDS ORDERED: ACETAMINOPHEN 500 MG TAB PO SCH (06:00)
[2023-01-30] MEDS ORDERED: LEVOTHYROXINE SODIUM 75 MCG TABLET PO SCH (06:30)
[2023-01-30 07:43] LABS: Hematocrit (blood only) 38.3 % (42.0-52.0); Hemoglobin 12.1 g/dl (14.0-18.0); Mean Corpuscular Hemoglobin 23.5 pg (25.0-34.0); Mean Corpuscular Hgb Conc 31.6 g/dL (32.0-36.0); Mean Corpuscular Volume 74.5 fL (80.0-100.0); Mean Platelet Volume 10.4 fL (9.4-12.4); Platelet Count 227 K/uL (130-400); RDW Coefficient of Variation 20.2 % (11.5-14.5); RDW Standard Deviation 53.6 fL (36.4-46.3); Red Blood Count 5.14 M/uL (4.70-6.10); White Blood Count 9.04 K/ul (4.8-10.8)
--- NOTE | 2023-01-30 08:02 | Hospitalist Progress Note ---
Date of Service January 30, 2023 Assessment & Plan (1) Abdominal pain: Plan: 77yo male with history of CAD s/p RCA stent, s/p CABG x 3V presenting with acute episode of abdominal cramping that occurred today around 14:00. Pain severe 7/10, intermittent, associated diaphoresis, nausea and vomiting. Labs as above with mild neutrophil predominant leukocytosis with WBC=12.69, mildly elevated PTG=752, ALT=80, BN=592. Tbili is normal. Troponin at 18:57 mildly elevated at 45.1 with repeat at 21:50 increased to 704.5. Etiology of abdominal pain unknown. Very atypical pain description for cardiac event, however, concerning given patient's history and troponin level. ?cholecystitis, choledocholithiasis given abnormal liver studies. Patient currently without chest or abdominal discomfort. -Admit to medical with telemetry -Trend troponin -Check 2D echocardiogram to assess for new WMA -Repeat LFTs in AM -Check CK -Heparin gtt -EKG with chest pain as needed -Nitro as needed -Cardiology consultation appreciated -Continue ASA 81mg po daily -Continue Metoprolol 100mg po qPM -Hold Irbesartan for now - resume pending results of Cr with AM labs -Continue Crestor (2) Elevated troponin: Plan: Patient with known CAD. Troponin increase 45.- --> 704.5. No acute ischemic changes present on EKG. Presently without discomfort. 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 Stable -Continue Crestor (4) Diabetes: Plan: Chronic. Well controlled. Last HgbA1C on 09/05/22 = 5.9. Patient is on Semaglutide - is due for a shot today -Hold Semaglutide for now -Lantus 5u BID -ISS (5) Hypertension: Plan: Blood pressure elevated -Continue Metoprolol -Hold Irbesartan for now, resume if Cr improves in AM (6) GERD (gastroesophageal reflux disease): Plan: Chronic. Stable -Protonix 40mg po daily while inpatient Dental pain -Patient is scheduled for a root canal on 01/31/23 AM -Consider abdominal pain as possible reaction to his Codeine pill? -Tramadol 50mg po q4 hours as needed for pain F/E/N - Saline lock. Electrolytes WNL. AHA/CC diet as tolerated Ppx - On heparin gtt. Protonix 40mg po daily Code - DNR/DNI per discussion with patient Dispo - Admit to medical with telemetry Admission and Anticipated Discharge Date Admission Date: January 30, 2023 Subjective Pt is a 77-year-old male with a history of CAD s/p RCA PCI ([facility] [place] 1999) and s/p CABG x 3 Vessels complicated by Post-op A-Fib/A-Flutter(08/17/22), Carotid Artery Stenosis, Hypertension, Hypothyroidism, Dyslipidemia, and Type 2 Diabetes Mellitus who presented with sudden onset abdominal pain. Patient evaluated at bedside this morning, appears in no apparent distress. Patient states that abdominal pain started yesterday afternoon after he took a Tylenol with codeine for the first time, notes that he had severe, intermittent abdominal pain over the next 4-6 hours. By evening, pain had subsided. Currently, patient denies abdominal pain, denies chest pain/SOB. Patient expresses that he does not believe sx were of cardiac etiology, despite elevated serial troponins. Review of Systems Review of Systems: All systems reviewed & are unremarkable except as noted in HPI & below Physical Exam Constitutional: WD/WN, vitals as above no acute distress Respiratory: normal respiratory effort, lungs clear to auscultation Cardiovascular: RRR, no murmur, no edema Gastrointestinal (Abdomen): normal bowel sounds, abdomen non-distended Skin: no rashes, warm and dry Psychiatric: A+Ox3, euthymic affect Results & Data Results & Data Vital Signs (Past 12 Hours) Vital Signs Pulse Pulse Resp BP BP Pulse Ox O2 Del Method 01/30/23 06:30 62 20 149/68 H 95 01/30/23 05:30 62 12 146/72 H 95 01/30/23 04:30 62 12 145/60 H 96 01/30/23 04:00 65 18 133/85 96 01/30/23 03:00 63 18 135/62 95 01/30/23 02:30 63 16 132/66 01/30/23 02:00 63 16 138/67 97 01/30/23 01:18 79 22 194/84 H 97 01/30/23 00:30 67 16 148/80 H 98 01/30/23 00:00 18 189/90 H 100 01/29/23 23:32 71 14 174/109 H 98 01/29/23 23:00 73 01/29/23 22:00 64 16 167/92 H 96 Room Air Laboratory Results Abnormal lab results 01/29/23 01/29/23 01/29/23 Range/Units 18:57 18:57 21:50 WBC 12.69 H (4.8-10.8) K/ul Hgb 13.6 L (14.0-18.0) g/dl Hct (42.0-52.0) % MCV 73.6 L (80.0-100.0) fL MCH 23.8 L (25.0-34.0) pg MCHC (32.0-36.0) g/dL RDW Std Deviation 52.9 H (36.4-46.3) fL RDW Coeff of Jenna 20.7 H (11.5-14.5) % Neut # (Auto) 10.08 H (1.40-6.50) K/uL Nash # (Auto) 0.73 H (0.11-0.59) K/uL APTT (21.0-31.0) Seconds Chloride 109 H (98-107) mmol/L Creatinine 1.43 H (0.6-1.4) mg/dl Glucose 132 H (70-99(Fasting)) mg/dl POC Glucose (70-99) mg/dl AST 115 H (13-39) U/L ALT 80 H (7-52) U/L Alkaline Phosphatase 113 H (34-104) U/L Troponin I High Sens 45.1 H 704.5 H* D (0-20) pg/ml 01/30/23 01/30/23 01/30/23 Range/Units 07:19 07:19 07:19 WBC (4.8-10.8) K/ul Hgb 12.1 L (14.0-18.0) g/dl Hct 38.3 L (42.0-52.0) % MCV 74.5 L (80.0-100.0) fL MCH 23.5 L (25.0-34.0) pg MCHC 31.6 L (32.0-36.0) g/dL RDW Std Deviation 53.6 H (36.4-46.3) fL RDW Coeff of Jenna 20.2 H (11.5-14.5) % Neut # (Auto) (1.40-6.50) K/uL Nash # (Auto) (0.11-0.59) K/uL APTT 87.2 H* (21.0-31.0) Seconds Chloride 109 H (98-107) mmol/L Creatinine (0.6-1.4) mg/dl Glucose 110 H (70-99(Fasting)) mg/dl POC Glucose (70-99) mg/dl AST 80 H (13-39) U/L ALT 88 H (7-52) U/L Alkaline Phosphatase (34-104) U/L Troponin I High Sens 3834.8 H* D (0-20) pg/ml 01/30/23 01/30/23 01/30/23 Range/Units 09:00 10:16 10:45 WBC (4.8-10.8) K/ul Hgb (14.0-18.0) g/dl Hct (42.0-52.0) % MCV (80.0-100.0) fL MCH (25.0-34.0) pg MCHC (32.0-36.0) g/dL RDW Std Deviation (36.4-46.3) fL RDW Coeff of Jenna (11.5-14.5) % Neut # (Auto) (1.40-6.50) K/uL Nash # (Auto) (0.11-0.59) K/uL APTT (21.0-31.0) Seconds Chloride (98-107) mmol/L Creatinine (0.6-1.4) mg/dl Glucose (70-99(Fasting)) mg/dl POC Glucose 104 H 120 H (70-99) mg/dl AST (13-39) U/L ALT (7-52) U/L Alkaline Phosphatase (34-104) U/L Troponin I High Sens 3068.5 H* (0-20) pg/ml 01/30/23 Range/Units 12:20 WBC (4.8-10.8) K/ul Hgb (14.0-18.0) g/dl Hct (42.0-52.0) % MCV (80.0-100.0) fL MCH (25.0-34.0) pg MCHC (32.0-36.0) g/dL RDW Std Deviation (36.4-46.3) fL RDW Coeff of Jenna (11.5-14.5) % Neut # (Auto) (1.40-6.50) K/uL Nash # (Auto) (0.11-0.59) K/uL APTT (21.0-31.0) Seconds Chloride (98-107) mmol/L Creatinine (0.6-1.4) mg/dl Glucose (70-99(Fasting)) mg/dl POC Glucose 117 H (70-99) mg/dl AST (13-39) U/L ALT (7-52) U/L Alkaline Phosphatase (34-104) U/L Troponin I High Sens (0-20) pg/ml Diagnostic Findings Abdomen/Pelvis CT 01/29/23 17:21 Exam(s): CT ABDOMEN + PELVIS With Contrast IV Amt: 97ml optiray 320 EXAM: CT Abdomen and Pelvis With Intravenous Contrast CLINICAL HISTORY: Reason for exam: upper abdominal pain. TECHNIQUE: Axial computed tomography images of the abdomen and pelvis with intravenous contrast. CTDI is 24.1 mGy and DLP is 1187.88 mGy-cm. Automated exposure control was utilized for the study. A dose lowering technique was utilized adhering to the principles of ALARA. CONTRAST: Patient received 97ml optiray 320 of IV contrast COMPARISON: No relevant prior studies available. FINDINGS: Lung bases: Unremarkable. No mass. No consolidation. Heart: Cardiomegaly. Mediastinum: Small hiatal hernia. ABDOMEN: Liver: Unremarkable. No mass. Gallbladder and bile ducts: Cholecystectomy. No ductal dilation. Pancreas: Unremarkable. No mass. No ductal dilation. Spleen: Unremarkable. No splenomegaly. Adrenals: Unremarkable. No mass. Kidneys and ureters: No hydronephrosis or delayed nephrogram. Small renal cysts. Stomach and bowel: Diverticulosis, without acute diverticulitis. No small bowel obstruction. No free intraperitoneal air. PELVIS: Appendix: No findings to suggest acute appendicitis. Bladder: Unremarkable. No mass. Reproductive: Unremarkable as visualized. ABDOMEN and PELVIS: Intraperitoneal space: Unremarkable. No free air. No significant fluid collection. Bones/joints: Sternotomy wires. Degenerative changes of the spine. No acute fracture. No dislocation. Soft tissues: Small fat-containing LEFT inguinal hernia. Vasculature: Atherosclerotic changes of the aorta. No abdominal aortic aneurysm. Lymph nodes: Unremarkable. No enlarged lymph nodes. IMPRESSION: 1. Cholecystectomy. 2. Small hiatal hernia. 3. Small fat-containing LEFT inguinal hernia. 4. No hydronephrosis or delayed nephrogram. Small renal cysts. 5. Diverticulosis, without acute diverticulitis. No small bowel obstruction. No free intraperitoneal air. Electronically signed by: Theodore Corado MD 01/29/23 20:58 PM Chest X-Ray 01/29/23 17:22 XR chest 2V PA/lateral HISTORY: 77 years-old Male upper abdominal pain acute chest and abdominal pain COMPARISON: 09/10/2019 TECHNIQUE: PA and lateral views of the chest FINDINGS: Cardiac silhouette is enlarged. Prior median sternotomy and CABG. Pneumothorax, pleural effusion or airspace consolidation. Cholecystectomy. Bones appear grossly intact. Eventration of the right hemidiaphragm. IMPRESSION: Cardiomegaly without acute process. ACT 112: Negative or not required by law. The above report was generated using voice recognition software. It may contain grammatical, syntax or spelling errors. Electronically signed by: Gaetano Chowdary M.D. 01/29/2023 6:13 PM
[2023-01-30 08:10] LABS: BUN Creatinine Ratio 11.7 (10-20); Bilirubin Direct 0.1 mg/dl (0-0.2); Bilirubin,Total 0.7 mg/dl (0.2-1.0); Calcium 8.7 mg/dl (8.6-10.3); Creatinine Clr Calc Pharmacy 51.5 ml/min; Est GFR (African American) 66.7 ml/min; Est GFR (Non-African American) 57.6 ml/min; Total Protein 6.6 gm/dl (6.0-8.3)
--- NOTE | 2023-01-30 08:12 | Electrocardiogram Report ---
Test Reason : Blood Pressure : / mmHG Vent. Rate : 064 BPM Atrial Rate : 064 BPM P-R Int : 170 ms QRS Dur : 092 ms QT Int : 444 ms P-R-T Axes : 022 003 120 degrees QTc Int : 458 ms Normal sinus rhythm Left ventricular hypertrophy with repolarization abnormality Abnormal ECG When compared with ECG of 14-SEP-2022 08:29, No significant change was found Confirmed by Charles Keyes ([id number]) on 01/30/2023 8:11:55 AM Referred By: REFERRED SELF Confirmed By:Charles Keyes
[2023-01-30 08:22] LABS: Partial Thromboplastin Ratio 3.1
[2023-01-30 08:23] LABS: Troponin I High Sensitivity 3834.8 pg/ml (0-20)
[2023-01-30 08:27] LABS: Partial Thromboplastin Time 87.2 Seconds (21.0-31.0)
--- NOTE | 2023-01-30 08:51 | Electrocardiogram Report ---
Test Reason : Blood Pressure : / mmHG Vent. Rate : 066 BPM Atrial Rate : 066 BPM P-R Int : 196 ms QRS Dur : 092 ms QT Int : 442 ms P-R-T Axes : 052 -10 130 degrees QTc Int : 463 ms Normal sinus rhythm Left ventricular hypertrophy with repolarization abnormality Abnormal ECG When compared with ECG of 29-JAN-2023 19:04, No significant change was found Confirmed by Charles Keyes ([id number]) on 01/30/2023 8:51:20 AM Referred By: REFERRED SELF Confirmed By:Charles Keyes
[2023-01-30] MEDS ORDERED: METOPROLOL SUCC 50MG EXT REL TAB PO SCH ×2 (09:00→21:00)
[2023-01-30] MEDS ORDERED: PANTOprazole 40 MG TAB PO SCH (09:00)
--- NOTE | 2023-01-30 09:17 | Cardiology Consultation ---
Date of Consultation January 30, 2023 Assessment & Plan (1) Elevated troponin: (2) Abdominal pain: (3) CAD, multiple vessel: (4) S/P CABG (coronary artery bypass graft): (5) Presence of bare metal stent in right coronary artery: (6) Hypertension: (7) Dyslipidemia: Plan Dr. Rdz is a 77-year-old male with a history of CAD s/p RCA PCI [place] [place] and s/p CABG x 3 Vessels complicated by Post-op A-Fib/A-Flutter(08/17/22), Carotid Artery Stenosis, Hypertension, Hypothyroidism, Dyslipidemia, and Type 2 Diabetes Mellitus who presented to [facility] ER on 01/29/23 complaining of an acute episode of abdominal pain and cramping that occurred around 14:00 on 01/29/23. Patient has been having an issue with one of his teeth so he met with his dentist yesterday morning and he is scheduled for a root canal tomorrow morning at 0700. He was prescribed Tylenol #3 with Codeine. He stopped at the pharmacy to fiber picker this Rx and he got a flu shot at approximately 1300. He took 2 Tylenol #3 tablets on an empty stomach. He subsequently ate some chili for lunch. He then developed an Intermittent Abdominal Cramping and Pain which was severe and rated at 7/10, and he had associated diaphoresis, nausea, and vomiting (it was reminiscent of his gall bladder pain prior to his miguel cystectomy). This Abdominal Pain and Cramping lasted for a total of about 4 to 6 hours and then resolved. He has not had a bowel movement yet but has not eaten anything since yesterday morning. He does have an appetite. He was hypertensive on presentation with SBP's ranging between 163 to 194 mmHg. Serial EKG's show NSR in the mid-60's and LVH with repolarization abnormalities. No acute or dynamic EKG changes. His initial high sensitivity Troponin I at 18:57 mildly elevated at 45.1 pg/mL,with repeat at 21:50 increased to 704.5 pg/mL and trended up to 3834.8 pg/mL. CBC with diff shows leukocytosis with WBC=12.69 with a leftward shift, mildly elevated IXD=304 U/L, ALT=80 U/L, Alkaline Mepiodlgefe=767. Total bilirubin is normal. Etiology of abdominal pain unknown and he has not had any angina pectoris or exertional dyspnea such as what he experienced leading up to his bypass surgery. Very atypical pain description for cardiac event, however, it is concerning given the patient's cardiac history and rising troponin I levels. This may have been the result of transient thrombus in 1 of his vein grafts, subendocardial or demand ischemia secondary to acute pain and marked hyp ertension in the presence of moderate concentric LVH, or it may have been a noncardiac rise in his troponin I level. Patient is currently asymptomatic from a cardiac standpoint. Recommend ambulating the patient hallway to assess for any symptoms. Provided he is able to do this without recurrent symptoms, we will schedule him for a stress echocardiogram later today. His Echocardiogram today showed no new wall motion abnormalities and normal overall LV systolic function moderate concentric LVH, focal basal septal thickening without evidence of LVOT obstruction, moderate MR, mild AI, and normal RV systolic function with a normal estimated RVSP. I discussed this case with Dr. Keyes. Recommend the followin. Continue Toprol XL 100 mg daily. 2. Increase Irbesartan to 150 mg daily due to hypertensive readings. 3. Continue Rosuvastatin 20 mg daily. 4. Continue Aspirin 81 mg daily. 5. Consider adding IV Hydralazine as needed for elevated blood pressures. 6. Patient currently has heparin drip going. 7. Ambulate patient in the hallway, if he remains asymptomatic will do a stress echocardiogram this afternoon (quad screen and go). 8. Resume cardiac rehab following discharge. Thank you for asking us to see this patient in consultation. We will continue to follow him along while hospitalized and following discharge. Supervising Physician Co-Signing Physician Notes ADDENDUM (Dr. Keyes): Patient seen and examined. Agree with plan as outlined above by Mr. Gopi CRENSHAW. 77-year-old man status post CABG 5 months ago who had abdominal pain which was spasmodic in nature, ECG and echo were unremarkable but troponin elevated. Given absence of evidence for acute thrombotic event, heparin was discontinued and he ambulated the hallways without symptoms. Subsequently, he underwent a stress echocardiogram this afternoon and went for 5 minutes on a Melecio protocol with no evidence of macroscopic ischemia on postexercise echocardiogram. Minor ECG changes and exertional neck discomfort are nonspecific but could represent microvascular ischemia occurring only at higher workload (onset only after be ginning second stage of Melecio protocol). Would add long-acting nitrates, could use isosorbide mononitrate 30 mg daily for potential microvascular ischemia. Elevated troponin likely demand ischemia from initial hypertension/adrenergic state from abdominal pain, no evidence of ongoing myocardial ischemia or significant inducible macroscopic myocardial ischemia which would require intervention. Okay to resume cardiac rehab. Okay for discharge, follow-up with Dr. Rose. History of Present Illness Reason for Consultation: -- Elevated high sensitivity Troponin I levels. -- CAD. Requesting Physician: Sara Waller MD Attending Physician: Charles Keyes MD History of Present Illness Dr. Rdz is a 77-year-old male with a history of CAD s/p RCA PCI ([facility] [place]) and s/p CABG x 3 Vessels complicated by Post-op A-Fib/A-Flutter(08/17/22), Carotid Artery Stenosis, Hypertension, Hypothyroidism, Dyslipidemia, and Type 2 Diabetes Mellitus who presented to [facility] ER on 01/29/23 complaining of an acute episode of abdominal pain and cramping that occurred around 14:00 on 01/29/23. Patient has been having an issue with one of his teeth so he met with his dentist yesterday morning and he is scheduled for a root canal tomorrow morning at 0700. He was prescribed Tylenol #3 with Codeine. He stopped at the pharmacy to fiber picker this Rx and he got a flu shot at approximately 1300. He took 2 Tylenol #3 tablets on an empty stomach. He subsequently ate some chili for lunch. He then developed an Intermittent Abdominal Cramping and Pain which was severe and rated at 7/10, and he had associated diaphoresis, nausea, and vomiting (it was reminiscent of his gall bladder pain prior to his cholecystectomy). This Abdominal Pain and Cramping lasted for a total of about 4 to 6 hours and then resolved. He has not had a bowel movement yet but has not eaten anything since yesterday morning. He does have an appetite. He was hypertensive on presentation with SBP's ranging between 163 to 194 mmHg. Serial EKG's show NSR in the mid-60's and LVH with repolarization abnormalities. No acute or dynamic EKG changes. His initial high sensitivity Troponin I at 18:57 mildly elevated at 45.1 pg/mL,with repeat at 21:50 increased to 704.5 pg/mL and trended up to 3834.8 pg/mL. CBC with diff shows leukocytosis with WBC=12.69 with a leftward shift, mildly elevated UFU=818 U/L, ALT=80 U/L, Alkaline Fmulwaakhzc=601. Total bilirubin is normal. Etiology of abdominal pain unknown -- but he has not had any angina pectoris or exertional dyspnea such as what he experienced leading up to his bypass surgery. Very atypical pain description for cardiac event, however, it is concerning given the patient's cardiac history and rising troponin I levels. Leading up to this admission the patient has been walking on a daily basis for exercise and he participates in Cardiac Rehab. Patient has also been hiking, riding his bike, and fly fishing this summer. Patient denies any exertional chest pain, heaviness, tightness, pressure, discomfort, or angina pectoris. He denies any exertional neck, jaw, back, or arm pain. He denies any shortness of breath rest, orthopnea, or PND. His exertional tolerance and stamina are improving. He has not had any palpitations or recurrent atrial fibrillation to his knowledge. He also monitors his heart rhythm on his Apple watch. He denies any syncope or near syncope. Patient has not had any symptoms suggestive of stroke or mini stroke. He does not experience claudication with his day-to-day activities. He is compliant with his medications and has not had any adverse side effects. He has had the following studies/procedures: 1. Cardiac Catheterization 1999 [facility] [place] RCA PCI. 2.Echo 09/22/2019: Normal LV size, wall motion, systolic function. EF 60%- 65%. Mild LVH. No significant valvular abnormalities. Aneurysmal interatrial septum. No obvious PFO following agitated saline administration. Normal RVSP. 3. CTA Neck 09/10/2019: Right common carotid artery 70%-75%. 4.Stress Echo 07/14/2022: Inferior base ischemia suggested at 78% MPHR. Exercise terminated due to chest pain, which initiated in stage I of Melecio protocol and progressively worsened. 3 minutes 47 seconds Melecoi protocol. Resting EF > 70%. Normal wall motion. Moderate concentric LVH. No significant valvular abnormalities. 5.Cardiac Cath 07/21/22: Distal LMCA 30%. Ostial LAD 70%. High D1 mid 30% to 40%. Small D2 mid 30%. Codominant system. Ostial/proximal LCx 80%. Large OM 2 mid 20%. Circumflex PDA without significant CAD. Large codominant RCA. Proximal RCA 10%. Proximal RCA stent patent. Mid RCA diffuse 30% to 50%. RCA PDA mid 30% to 40%. LVEDP 16. No . 6.CABG x 3 Vessels [facility] [place]/17/[place] (Dr. Buchanan): OLSON to LAD; SVG to Ramus; SVG to OM. Postop A-fib and flutter; evaluated by EP. Placed on Amiodarone and anticoagulation therapy. Postop, concern for prolonged SVC clamping and hypoxia. Cranial O2 sats reported in 30s with elevated CVP. Postop head CT negative. He was last seen by CT surgery on 09/07/2022 and does not have any further follow-up scheduled with them. Patient is enrolled in the Crest 2 Trial through [facility] for his Carotid Artery Stenosis. Allergies Allergy/AdvReac Type Severity Reaction Status Date / Time benzoyl peroxide Allergy Intermediate Rash Verified 11/14/22 11:27 adhesive tape AdvReac Mild Rash Verified 11/14/22 11:27 Home Medications Medication Instructions Recorded Confirmed Type levothyroxine 75 mcg tablet 75 mcg PO QAM #90 tabs 08/08/22 01/29/23 Rx (Synthroid) omeprazole 20 mg capsule,delayed 20 mg PO DAILY #90 caps 08/08/22 01/29/23 Rx release docusate sodium 100 mg capsule 100 mg PO DAILY PRN Constipation 09/05/22 01/29/23 History (Colace) ondansetron HCl 4 mg tablet 4 mg PO Q8H PRN Nausea And Vomiting 09/05/22 01/29/23 History acetaminophen 500 mg tablet 1,000 mg PO Q8 01/29/23 01/29/23 History (Tylenol Extra Strength) aspirin 81 mg tablet,delayed 81 mg PO QPM 01/29/23 01/29/23 History release cholecalciferol (vitamin D3) 125 125 mcg PO QAM 01/29/23 01/29/23 History mcg (5,000 unit) tablet (Vitamin D3) coenzyme Q10 100 mg capsule 100 mg PO QAM 01/29/23 01/29/23 History (CoQ-10) glucosamine sulf dipot 1 cap PO QAM 01/29/23 01/29/23 History chlr,msm,chond 550 mg-C 30 mg-gracia 1 mg capsule (Glucosamine Chondroitin) irbesartan 75 mg tablet 75 mg PO QAM 01/29/23 01/29/23 History metoprolol succinate 100 mg 100 mg PO QPM 01/29/23 01/29/23 History tablet,extended release 24 hr srcwrfkmoizq-tknsckxm-wnmpsg tablet 1 tab PO QAM 01/29/23 01/29/23 History rosuvastatin 20 mg tablet 20 mg PO QPM 01/29/23 01/29/23 History semaglutide 0.25 mg or 0.5 mg (2 40 mg subcut WK 01/29/23 01/29/23 History mg/1.5 mL) subcutaneous pen injector tamsulosin 0.4 mg capsule 0.4 mg PO QPM 01/29/23 01/29/23 History Patient History Medical History CAD (coronary artery disease) s/p BMS x 1 1999 Carotid artery stenosis Degenerative disc disease L4-L5 Diabetes mellitus, type 2 Encounter for pre-operative examination Exertional angina GERD (gastroesophageal reflux disease) Hypertension Hypothyroidism Umbilical hernia Surgical History H/O ventral hernia repair (12/18/18) Diagnostic Laprascopy and Open Ventral Hernia Repair Dr. Cowan 12-18-18 History of cardiac cath 2/2 abnormal stress test ~1999 AT [facility]. 1 stent to proximal RCA. History of cholecystectomy LAP History of colonoscopy History of coronary artery bypass graft 08/17/2022 History of heart artery stent x 1 to RCA 2001 History of herniorrhaphy RIGHT INGUINAL History of open reduction and internal fixation (ORIF) procedure RIGHT ANKLE History of ventral hernia repair 10/09/18 [facility] Hx of bilateral cataract extraction S/P CABG (coronary artery bypass graft) Family History Grandfather Stomach cancer Denies family history of Ovarian cancer Prostate cancer Myocardial infarction Breast cancer Lung cancer Colorectal cancer Social History Smoking Status: Never smoker Second Hand Exposure: No; Do You Dip or Chew Tobacco: No; Hx Alcohol Use: No Hx Substance Use: No Preferred Language: Rwandan Communication Ability: Effective Visual Impairment: No 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 Required: No Beliefs That Will Affect Care: None marital status: / Current Living Situation: Alone Current Living Situation Comment: [facility] at [facility] current occupational status: retired 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 Physical Exam Physical Exam: Blood pressure 183/98. Pulse 64 and regular. GENERAL: Patient in no acute distress. HEENT: Head is atraumatic, normocephalic. EOM's intact. Facies symmetric. No perioral cyanosis. NECK: No JVD. JVP is not elevated. Carotid upstrokes are + 2 bilaterally without bruits. CHEST/LUNGS: Clear to auscultation throughout all lung castellanos. No wheezes, rales, or crackles. CVS: S1 and S2 are regular without murmurs, gallops, or rubs. PMI is nondisplaced. No lifts, heaves, or thrills. No abdominal aortic or renal bruits. Median sternotomy incision is well-healed. ABDOMINAL EXAM: Bowel sounds are present. No masses, organomegaly, or tenderness. EXTREMITIES: No clubbing or cyanosis. Trace bilateral lower extremity edema. Intact posterior tibial and radial pulses bilaterally. NEUROLOGIC EXAM: Patient is awake, alert, and oriented. Pleasant and cooperative. Answers questions appropriately. Speech is clear. Gait pattern was not assessed. Wet Pour Mixer: -- NSR at normal rates. ECHOCARDIOGRAM 01/30/23: -- Normal LV systolic function. -- Moderate concentric LVH. -- Focal thickening of the basal septum without evidence of LVOT obstruction. -- LVEF 55% to 60%, septal motion consistent with postoperative state. -- Normal RV systolic function. -- Normal estimated RVSP. -- Mild AI. -- Moderate MR. -- When compared to 07/14/2022 study; moderate MR is now present. Results & Data Vital Signs (Past 12 Hours) Vital Signs Pulse Pulse Resp BP BP Pulse Ox O2 Del Method 01/30/23 09:00 68 18 183/98 H 98 Room Air 01/30/23 06:30 62 20 149/68 H 95 01/30/23 05:30 62 12 146/72 H 95 01/30/23 04:30 62 12 145/60 H 96 01/30/23 04:00 65 18 133/85 96 01/30/23 03:00 63 18 135/62 95 01/30/23 02:30 63 16 132/66 01/30/23 02:00 63 16 138/67 97 01/30/23 01:18 79 22 194/84 H 97 01/30/23 00:30 67 16 148/80 H 98 01/30/23 00:00 18 189/90 H 100 01/29/23 23:32 71 14 174/109 H 98 01/29/23 23:00 73 01/29/23 22:00 64 16 167/92 H 96 Room Air Laboratory Results Laboratory Results - last 24 hr 01/29/23 01/29/23 01/29/23 18:57 18:57 18:57 WBC 12.69 H RBC 5.72 Hgb 13.6 L Hct 42.1 MCV 73.6 L MCH 23.8 L MCHC 32.3 RDW Std Deviation 52.9 H RDW Coeff of Jenna 20.7 H Plt Count 284 MPV 10.6 Immature Gran % (Auto) 0.6 Neut % (Auto) 79.5 Lymph % (Auto) 12.9 [place] % (Auto) 5.8 Eos % (Auto) 0.9 Baso % (Auto) 0.3 Neut # (Auto) 10.08 H Lymph # (Auto) 1.64 [place] # (Auto) 0.73 H Eos # (Auto) 0.12 Baso # (Auto) 0.04 Immature Gran # (Auto) 0.08 Polychromasia 1+ Anisocytosis Present PT 10.9 INR 1.0 APTT 25.2 PTT Ratio 0.9 Sodium 140 Potassium 4.4 Chloride 109 H Carbon Dioxide 25 Anion Gap 6 BUN 16 Creatinine 1.43 H Est Cr Clr Drug Dosing Not Reportable Est GFR ( Amer) 54.0 Est GFR (Non-Af Amer) 46.6 BUN/Creatinine Ratio 11.2 Glucose 132 H POC Glucose Calcium 9.7 Magnesium Total Bilirubin 0.7 Direct Bilirubin AST 115 H ALT 80 H Alkaline Phosphatase 113 H Total Creatine Kinase Troponin I High Sens 45.1 H Total Protein 7.6 Albumin 4.5 Globulin 3.1 Albumin/Globulin Ratio 1.5 Lipase 11 01/29/23 01/30/23 01/30/23 21:50 07:19 07:19 WBC 9.04 RBC 5.14 Hgb 12.1 L Hct 38.3 L MCV 74.5 L MCH 23.5 L MCHC 31.6 L RDW Std Deviation 53.6 H RDW Coeff of Jenna 20.2 H Plt Count 227 MPV 10.4 Immature Gran % (Auto) Neut % (Auto) Lymph % (Auto) [place] % (Auto) Eos % (Auto) Baso % (Auto) Neut # (Auto) Lymph # (Auto) [place] # (Auto) Eos # (Auto) Baso # (Auto) Immature Gran # (Auto) Polychromasia Anisocytosis PT INR APTT PTT Ratio Sodium 141 Potassium 4.0 Chloride 109 H Carbon Dioxide 28 Anion Gap 4 BUN 14 Creatinine 1.20 Est Cr Clr Drug Dosing 51.5 Est GFR ( Amer) 66.7 Est GFR (Non-Af Amer) 57.6 BUN/Creatinine Ratio 11.7 Glucose 110 H POC Glucose Calcium 8.7 Magnesium 2.1 Total Bilirubin 0.7 Direct Bilirubin 0.1 AST 80 H ALT 88 H Alkaline Phosphatase 100 Total Creatine Kinase 215 Troponin I High Sens 704.5 H* D 3834.8 H* D Total Protein 6.6 Albumin 4.0 Globulin Albumin/Globulin Ratio Lipase 01/30/23 01/30/23 07:19 09:00 WBC RBC Hgb Hct MCV MCH MCHC RDW Std Deviation RDW Coeff of Jenna Plt Count MPV Immature Gran % (Auto) Neut % (Auto) Lymph % (Auto) [place] % (Auto) Eos % (Auto) Baso % (Auto) Neut # (Auto) Lymph # (Auto) [place] # (Auto) Eos # (Auto) Baso # (Auto) Immature Gran # (Auto) Polychromasia Anisocytosis PT INR APTT 87.2 H* PTT Ratio 3.1 Sodium Potassium Chloride Carbon Dioxide Anion Gap BUN Creatinine Est Cr Clr Drug Dosing Est GFR ( Amer) Est GFR (Non-Af Amer) BUN/Creatinine Ratio Glucose POC Glucose 104 H Calcium Magnesium Total Bilirubin Direct Bilirubin AST ALT Alkaline Phosphatase Total Creatine Kinase Troponin I High Sens Total Protein Albumin Globulin Albumin/Globulin Ratio Lipase Diagnostic Findings CXR 01/29/23: -- No acute processes. CT Scan Abdomen 01/29/23: 1. Cholecystectomy. 2. Small hiatal hernia. 3. Small fat-containing LEFT inguinal hernia. 4. No hydronephrosis or delayed nephrogram. Small renal cysts. 5. Diverticulosis, without acute diverticulitis. No small bowel obstruction. No free intraperitoneal air. Medications Administered Medication List Acetaminophen (Acetaminophen 500 Mg Tab) 1,000 mg PO Q8 [facility] Stop: 03/01/23 05:59 Last Admin: 01/30/23 07:47 Dose: 1,000 mg Documented By: LINDSAY Heparin Sodium/Dextrose (Heparin Sodium/Dextrose) 25,000 units in 500 mls @ 26 mls/hr IV .[id number] [facility]; Protocol Stop: 02/28/23 22:59 Last Titration: 01/30/23 09:33 Dose: 1,150 units/hr, 23 mls/hr Documented By: LINDSAY Co-signed By: ELMO Titration: 01/30/23 08:29 Dose: 0 units/hr, 0 mls/hr Documented By: LINDSAY Co-signed By: ELMO Admin: 01/30/23 01:05 Dose: 1,300 units/hr, 26 mls/hr Documented By: LISSETTE Co-signed By: MARTHA Levothyroxine Sodium (Levothyroxine Sodium 75 Mcg Tablet) 75 mcg PO DAILYBB [facility] Stop: 03/01/23 06:29 Last Admin: 01/30/23 07:48 Dose: 75 mcg Documented By: LINDSAY Tramadol HCl (Tramadol Hcl 50 Mg Tablet) 50 mg PO Q4H PRN PRN Reason: Dental Pain Stop: 03/01/23 00:43 Last Admin: 01/30/23 01:49 Dose: 50 mg Documented By: LISSETTE Discontinued Medications Aspirin (Aspirin Chew 324 Mg) 324 mg PO NOW STA Stop: 01/29/23 23:19 Last Admin: 01/30/23 01:05 Dose: 324 mg Documented By: LISSETTE Heparin Sodium (Porcine) (Heparin Sod (Porcine) 1000 Unit/Ml) 1 units IV NOW ONE Stop: 01/29/23 23:01 Last Admin: 01/30/23 01:04 Dose: 6,000 units Documented By: LISSETTE Co-signed By: MARTHA Sodium Chloride (Nss) 1,000 mls @ 999 mls/hr IV .Q1H1M ONE Stop: 01/29/23 22:34 Last Infusion: 01/30/23 01:10 Dose: 0 mls/hr Documented By: Admin: 01/29/23 21:43 Dose: 999 mls/hr Documented By: LISSETTE Ioversol (Optiray 320 100ml) 97 ml IV ONCE ONE Stop: 01/29/23 20:09 Last Admin: 01/29/23 20:08 Dose: 97 ml Documented By: TORITO PG Care Time/CCT Total # of Minutes Spent Total Time Spent with Patient: Total time spent is greater than 50% in coordination of care (as documented) at patient's floor/unit and/or counseling patient:55 Coding [place] [address] INT INP/OBS CARE 3/75MIN Patient Type Established Medical Decision Making High Complexity Diagnoses Elevated troponin R79.89 Abdominal pain R10.9 CAD, multiple vessel I25.10 S/P CABG (coronary artery bypass graft) Z95.1 Presence of bare metal stent in right coronary artery Z95.5 Hypertension I10 Dyslipidemia E78.5 Time Spent (min) 82
[2023-01-30] MEDS: LANTUS PER UNIT CHARGE SQ SCH ×2 (10:11→10:19)
[2023-01-30] MEDS: INSULIN ASPART PER UNIT CHARGE SC SCH ×3 (10:11→13:46)
--- NOTE | 2023-01-30 10:15 | XCELERA ---
[id number] \\[id number]
--- NOTE | 2023-01-30 16:35 | XCELERA ---
[id number] \\[id number]
--- NOTE | 2023-01-30 17:48 | Discharge Summary ---
Date of Service January 30, 2023 Admission HPI Per Admitting Provider Jose Manuel Rdz is a pleasant 77yo male with history of CAD s/p BMS to pRCA placed in 2001. Patient had an abnormal stress echo with subsequent cardiac catheterization performed on 07/21/2022 which revealed severe multivessel disease. He had a CABG x 3V (OLSON-LAD, SVG-ramus, SVG-OM - performed at [facility] [place]. Buchanan) on 08/17/2022. 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 Patient was in his usual state of health today. He had a flu shot around 13:00 then he then took a Tylenol #3 tablet with Codeine for his ongoing tooth pain on an empty stomach. He then had some chili to eat from [employer]. Shortly after that around 14:00 he developed severe mid and lower abdominal pain and cramping, 7/10 in intensity, intermittent and non-radiating. He had some diaphoresis as well as nausea with one episode of non-bloody/non-bilious vomiting. The symptoms lasted approximately 4-6 hours and have since resolved. He denies chest pain, cough, SOB, dizziness or syncope. No urinary complaints. No edema, orthopnea or weight gain. No additional complaints at this time. Presently chest pain free. In the ER he is afebrile, HD stable, NAD ER Course: ASA ordered Heparin gtt ordered Admission Exam Per Admitting Provider General: patient resting comfortably, NAD, non-toxic in appearance, AA&O x 4 Skin: warm, dry, intact, no rashes or lesions HEENT: NC/AT, PERRL, EOMI, anicteric sclera, conjunctiva without injection, external ear normal to inspection and nontender, nares patent, moist mucus membranes, dentition intact, no oropharyngeal lesions, neck supple, trachea midline, no LAD, no thyromegaly, no JVD, right sided carotid bruit Heart: +S1/S2, regular, no m/r/g, well healed sternotomy scar with stable sternum Lungs: equal air entry bilaterally, no rales/rhonchi/wheezes Abd: +BS, soft, NT/ND, no masses/organomegaly/ascites Ext: warm, 2+ pulses in UE/LE bilaterally, no clubbing/cyanosis or edema Neuro: nonfocal, patient AA&O x 4, speech intact, no facial droop, moving all extremities on command with equal strength 5/5 Principal Diagnosis abdominal pain Discharge Exam Constitutional WD/WN, vitals as above no acute distress Respiratory normal respiratory effort, lungs clear to auscultation Cardiovascular RRR, no murmur, no edema Gastrointestinal (Abdomen) normal bowel sounds, soft, nontender, no hepatosplenomegaly Skin no rashes, warm and dry Psychiatric A+Ox3, euthymic affect Discharge Data Allergies Allergy/AdvReac Type Severity Reaction Status Date / Time benzoyl peroxide Allergy Intermediate Rash Verified 11/14/22 11:27 adhesive tape AdvReac Mild Rash Verified 11/14/22 11:27 Consultations 01/30/23 00:04 Consult Cardiology Routine Ordered Studies 01/29/23 17:21 CT abd pelvis IV con only Stat Hospital Course (1) Elevated troponin: (2) Abdominal pain: (3) GERD (gastroesophageal reflux disease): (4) Hyperlipidemia: (5) Diabetes: (6) CAD (coronary artery disease): (7) Hypertension: (8) Atrial fibrillation: (9) Dyslipidemia: Plan Pt is a 77-year-old male with a history of CAD s/p RCA PCI ([facility] 1999) and s/p CABG x 3 Vessels complicated by Post-op A-Fib/A-Flutter(08/17/22), Carotid Artery Stenosis, Hypertension, Hypothyroidism, Dyslipidemia, and Type 2 Diabetes Mellitus who presented with sudden onset abdominal pain. #Possible NSTEMI #LA with non-obstructive coronary arteries - Initial troponin 45, repeat 704.5--> 3834.8--> 3068.5 - Placed on heparin drip - EKG without ischemic changes - Echo negative for wall motion abnormalities - Stress echo done, negative for myocardial ischemia, fair exercise tolerance - Imdur 30mg daily added to medication regimen upon discharge for concern of symptoms for distal small coronary arteries. #Abdominal pain - Initial lab work significant for mild leukocytosis, AST 115, ALT 80, AP 113 - CT abdomen and pelvis was done, no acute process noted - Due to elevated troponin, work up for atypical chest pain pursued, see above - Unclear even at time of discharge what the etiology of abdominal pain was, recommend repeat LFTs and prompt follow up following discharge. Total Time Total Time Spent Total Time Spent (In Minutes): see attending attestation Discharge Plan Discharge Items Patient Disposition: Home - Self-Care Reason For Visit: ABDOMINAL PAIN, ELEVATED TROPONIN Discharge Diagnosis: Abdominal pain Activity: Per Instructions section Non-emergency contact: Primary Care Provider Call non-emergency contact if: your symptoms worsen, your pain is worsening and your temperature is above 101 Follow-up/Referrals: Cristobal Winter MD [Primary Care Provider] - Diet: Regular Addtl Attending Provider Instructions: You were admitted to the hospital for abdominal pain. Do to lab values suggesting that your pain may have been related to your heart, you had a stress echocardiogram done. This did not show any impairment in blood flow to the heart. Because of this, we were able to rule out a heart attack but it is still not quite clear what caused your abdominal pain. A discharge summary will be sent to your primary care physician to ensure continuity of care. Please bring this discharge summary with you to your next office appointment so that your provider can review it at that time. Medications: Your medication list has been reviewed and reconciled upon discharge to ensure accuracy and continuity of care. An updated list of all your medications is included with your hospital discharge paperwork. Please review this list closely and make note of any changes to your medications. - Please START taking Isosorbide Mononitrate (Imdur) 30mg once daily - No other changes were made to your medications. Please take them as previously directed. - It is very important that you make a follow up appointment with your primary care provider shortly after discharge. In addition to reviewing your medications, we also recommend that you have your liver function labs rechecked. Follow up appointments: - Make a follow up appointment with your PCP within the next week. It is very important that you follow up with them shortly after discharge from the hospital. - Keep all of your follow up appointments as already scheduled. If you cannot make an appointment, notify your provider. CONTACT YOUR PRIMARY CARE PROVIDER if you experience any of the following: - Difficulty following your treatment plan - Difficulty taking any of your medications CALL 911 OR GO TO THE EMERGENCY DEPARTMENT if you experience any of the following: - Sudden, severe abdominal pain or nausea/vomiting - Severe chest pain or chest pain that radiates to your jaw or arm - Sudden, severe shortness of breath or difficulty breathing Pending Studies at Discharge: No Stand-Alone Forms: My [facility], Smoking Cessation Medications and DC Order Prescriptions: New isosorbide mononitrate 30 mg tablet extended release 24 hr 30 mg PO DAILY Qty: 30 0RF Continued levothyroxine [Synthroid] 75 mcg tablet 75 mcg PO QAM Qty: 90 1RF omeprazole 20 mg capsule,delayed release(DR/EC) 20 mg PO DAILY Qty: 90 3RF ondansetron HCl 4 mg tablet 4 mg PO Q8H PRN (Reason: Nausea And Vomiting) docusate sodium [Colace] 100 mg capsule 100 mg PO DAILY PRN (Reason: Constipation) semaglutide 0.25 mg or 0.5 mg(2 mg/1.5 mL) pen injector 40 mg SUBCUT WK Rx Instructions: sundays [id number]-[id number] Tablet 1 tab PO QAM aspirin 81 mg tablet,delayed release (DR/EC) 81 mg PO QPM metoprolol succinate 100 mg tablet extended release 24 hr 100 mg PO QPM irbesartan 75 mg tablet 75 mg PO QAM tamsulosin 0.4 mg capsule 0.4 mg PO QPM rosuvastatin 20 mg tablet 20 mg PO QPM acetaminophen [Tylenol Extra Strength] 500 mg Tablet 1,000 mg PO Q8 coenzyme Q10 [CoQ-10] 100 mg Capsule 100 mg PO QAM cholecalciferol (vitamin D3) [Vitamin D3] 125 mcg (5,000 unit) Tablet 125 mcg PO QAM Glucosamine Chondroitin 550-30-1 mg Capsule 1 cap PO QAM Discharge Orders: Discharge Order (Routine); Ordered 01/30/23 Ordered By: Micah Valiente Admission Data Admit Date/Time: 01/30/23 00:04 Attending Provider: Sara Waller Admit Provider: Kiley العراقي Primary Care Provider: Cristobal Winter Other Providers: Kendall Rodriguez Other Interventions: Discharge Summary Assessment (RN) Last Done: 01/30/23 18:02 Supervising Physician Co-Signing Physician Notes Resident Physician Supervision Note: I independently interviewed and examined the patient and verified the blake history and physical, reviewed labs and image studies and agree with resident findings and care plan. Resident Activity Tracking Resident Involvement: Resident Care Provided Care Provided: Adult Hospital Medicine
[2023-01-30] MEDS ORDERED: TAMSULOSIN HCL 0.4 MG CAP PO SCH (21:00)
[2023-01-30] MEDS ORDERED: ROSUVASTATIN CALCIUM 20 MG TAB PO SCH (21:00)
[2023-01-30] MEDS ORDERED: ASPIRIN 81 MG ECTAB PO SCH (21:00)
== END 2023-01-30 18:54 | disposition home or self-care (01) | DRG 282 ==
LOC: ED 17:10 → INTOOBSV 01-30 00:04 → SUATTDRO 01-30 00:04 → EDINP 01-30 00:04

== ENCOUNTER 2023-03-07 09:52 | Observation (INO) ==
[2023-03-07] MEDS ORDERED: niCARdipine HCL INJ 2.5 MG/ML 10 ML AMP ONE (11:04)
[2023-03-07] MEDS ORDERED: HEPARIN (PORCINE) 1000 UNIT/ML 10 ML (CATH LAB USE ONLY) ONE ×2 (11:04→13:47)
[2023-03-07] MEDS ORDERED: NITROGLYCERIN/D5W 100MCG/ML 20ML SYR ONE (11:05)
--- NOTE | 2023-03-07 11:22 | History & Physical Bridge Note ---
Date of Service March 07, 2023 History & Physical Bridge Note I have examined the patient, reviewed the History & Physical and in the interval since the performance of the History & Physical I have noted the following changes of clinical significance: no changes noted
--- NOTE | 2023-03-07 11:23 | Pre Anesthesia Assessment ---
Date of Service March 07, 2023 Pre Sedation Assessment Vital Signs Pulse Resp BP Pulse Ox O2 Del Method 03/07/23 10:18 65 21 163/83 H 95 Room Air Cardiovascular RRR, no murmur, no edema Respiratory normal respiratory effort, lungs clear to auscultation Pre-Sedation Airway Assessment Smoking Status: Never smoker Hx Sleep Apnea: No Mallampati Class: II ASA: ASA3 NPO Status Date of Last Intake of Fluids: 03/07/23 Time of Last Intake of Fluids: 07:00 Last Oral Intake of Fluids Comment: sips with meds Date of Last Intake of Solid Food: 03/06/23 Time of Last Intake of Solid Foods: 22:00 Procedure Planning Contraindications for Sedation: none Current Medications Reviewed: Yes Notes The planned sedation has been discussed with the patient. Informed Consent was obtained. I have identified the patient, determined the appropriateness of sedation and have assessed the patient immediately prior to the procedure. All medicine(s) and interventions are by my order.
[2023-03-07] MEDS ORDERED: fentaNYL citrate PF 100 MCG/2 ML VIAL ONE ×2 (11:30→13:44)
[2023-03-07] MEDS ORDERED: MIDAZOLAM HCL 1 MG/ML 2ML VIAL ONE ×4 (11:30→14:31)
[2023-03-07] MEDS ORDERED: IODIXANOL (VISIPAQUE) 320 MG/ML 100ML IV ONE (12:18)
--- NOTE | 2023-03-07 13:14 | Cardiac Catheterization ---
[facility] Data: First Responder Cardiac Status Clinical evaluation leading to the procedure CAD Presenation: Stable angina Anginal Classification: CCS III Heart Failure: No Cardiogenic Shock within 24 Hours: No Cardiac Arrest within 24 Hours: No Standard Exercise Test: Yes - Indeterminant Stress Echocardiogram: Yes - Indeterminant Coronary Anatomy Dominant: Co-Dominant Diagnostic Physicians Name: Alex Rose MD Status: Elective Closure Device Percutaneous Entry Location: Radial Closure Device: Radial Band Recommendations: PCI without planned CABG Cardiac Cath Procedure Full Procedure Date March 07, 2023 Pre-Procedure Diagnosis Pre-Procedure Diagnosis: Non STEMI and Angina AUC Score AUC Score: 8 Post-Procedure Diagnosis Post-Procedure Diagnosis: Severe CAD Procedure(s) Performed Procedure(s) Performed: Coronary Angiography, Left Heart Cath, Aortography and Bypass Graft Angiography Manager Fashion Alex Rose MD Provider Engagement Executive(s) Deibler Estimated Blood Loss Estimated Blood Loss: < 20 ml Medication(s) Medication(s): Fentanyl, Heparin, Lidocaine 1%, Nicardipine and Versed Summary of Findings Procedures: 1. Coronary angiography 2. Coronary bypass graft angiography 3. Left heart catheterization 4. Aortography 5. 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 He had an NSTEMI in January 2023 with new inferolateral wall motion abnormalities on echo. He continues to have exertional angina. Coronary angiography: 1. Left main: Ostial 20 to 30%. Distal 30%. 2. Left anterior descending: Ostial LAD 70%. Proximal D2 50%. Competitive flow noted in D1 and distal LAD. 3. Circumflex: Codominant. Ostial/proximal circumflex 95%. OM 1 receives left to left collaterals, noted with angiography of SVG to diagonal. BIANCA II flow in circumflex PDA and PL. 4. Right coronary artery: Codominant. Proximal RCA 50%. Proximal to mid RCA stent patent. Diffuse 30 to 40% CAD within the mid and distal RCA. RCA PDA and PL without significant CAD. Coronary bypass graft angiography: 1. OLSON to LAD patent. 2. SVG to D1 patent. Left to left collaterals to OM1 noted. 3. SVG to OM: Occluded. Aortography: 1. SVG to diagonal visualized. 2. There was no SVG to circumflex territory visualized. 3. No aortic regurgitation. Left heart catheterization: 1. Left ventriculography was not performed. 2. No significant aortic stenosis. 3. Normal LVEDP; 11 mmHg. Moderate sedation: 1. Sedation start time: 12:01 PM 2. Sedation end time: 12:50 PM Impression: 1. Severe blackfeet vessel CAD (LAD and codominant circumflex). 2. Occluded SVG to circumflex/OM. 3. Patent OLSON to LAD and SVG to diagonal. 4. Left to left collaterals to OM. 5. Patent RCA stent (pre-CABG). 6. No aortic regurgitation or stenosis. 7. Normal left-sided filling pressure. Plan: 1. Given ongoing anginal symptoms, Dr. Cotto of interventional cardiology was asked to review images and consider PCI of circumflex. He plans on pursuing circumflex PCI. 2. Continue with risk factor modification. Hemodynamics Rest Ao:: 130/57 Final Ao: 130/55 LV: 139/0/11 Recommendations Recommendations: PCI without planned CABG Specimens Specimens: None Radiation Exposure (mGy) 704 mGy. 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 Any exceptions are noted below. [facility] Card Cath Procedure Codes Cardiac Catheterization Procedure 1: Cardiovascular Cath Procedures: 84461 Coronaries & LHC (+/-LV) & Grafts/IM (arterial & venous) Therapeutic Services & Ancillary Procedure 1: Cardiovascular Tx and Anc Procedures: 72126 Supravalvular Aortography Moderate Sedation Procedure 1: Sedation/Anesthesia: 40838 Mod Sedation by the same physician;Init15 Min Child Age 5 & Up Procedure 2: Sedation/Anesthesia: 61930 Mod Sedation by the same physician; Ea [id number] Minutes Procedure 3: Sedation/Anesthesia: 73342 Mod Sedation by the same physician; Ea [id number] Minutes Procedure 4: Sedation/Anesthesia: 93903 Mod Sedation by the same physician; Ea [id number] Minutes PG Care Time/CCT Total # of Minutes Spent Total Time Spent with Patient: Total time spent is greater than 50% in coordination of care (as documented) at patient's floor/unit and/or counseling patient:
[2023-03-07] MEDS ORDERED: CLOPIDOGREL BISULFATE 300 MG TAB ONE (15:11)
[2023-03-07] MEDS ORDERED: ONDANSETRON INJ 2 MG/ML 2 ML VIAL IV PRN (15:32)
[2023-03-07] MEDS ORDERED: NITROGLYCERIN SL 0.4 MG/TAB TAB SL PRN (15:32)
[2023-03-07] MEDS ORDERED: DOCUSATE SODIUM 100 MG CAP PO PRN (15:34)
[2023-03-07] MEDS ORDERED: GLUCOSE 40% GEL 15 GM TUBE PO PRN (15:36)
[2023-03-07] MEDS ORDERED: DEXTROSE 50% 50 ML SYRINGE IV PRN (15:36)
[2023-03-07] MEDS ORDERED: GLUCAGON FOR INJ 1 MG VIAL SQ PRN (15:36)
[2023-03-07] MEDS ORDERED: GLUCOSE 10 TAB/TUBE PO PRN (15:36)
[2023-03-07] MEDS ORDERED: CARBOHYDRATES FOR HYPOGLYCEMIA PO PRN (15:36)
[2023-03-07] MEDS ORDERED: SODIUM CHLORIDE 0.9% 1,000 ML IV SCH (15:45)
[2023-03-07] MEDS: INSULIN ASPART PER UNIT CHARGE SC SCH ×2 (16:56→21:10)
[2023-03-07] MEDS ORDERED: ACETAMINOPHEN 325 MG TAB PO PRN (17:41)
--- NOTE | 2023-03-07 17:43 | Post Operative Brief Note ---
Cardiology Brief Post Op Date of Surgery March 07, 2023 Pre & Post Diagnosis Coronary artery disease Procedure PCI of circumflex Actuary Misbah Cotto MD Assistant Banquet Manager Lexy Abreu Estimated Blood Loss 25 Findings See Below See cath report by Dr. Rose. 95% proximal to mid LCx. Successful PCI with 4.0x26 Marcos from LMCA to mid LCx No complications. Complications none Disposition Accompanied Patient To Recovery: Yes Disposition: Recovery Room
[2023-03-07] MEDS ORDERED: METOPROLOL SUCC 50MG EXT REL TAB PO SCH (21:00)
[2023-03-07] MEDS ORDERED: ROSUVASTATIN CALCIUM 20 MG TAB PO SCH (21:00)
[2023-03-07] MEDS ORDERED: TAMSULOSIN HCL 0.4 MG CAP PO SCH (21:00)
--- NOTE | 2023-03-07 23:05 | Cardiac Catheterization ---
[facility] Data: Dressing Room [place] Cardiac Status Clinical evaluation leading to the procedure CAD Presenation: Stable angina Anginal Classification: CCS III Diagnostic Physicians Name: Misbah Cotto MD Closure Device Recommendations: PCI without planned CABG Cardiac Cath Procedure Full Procedure Date March 07, 2023 Pre-Procedure Diagnosis Pre-Procedure Diagnosis: Angina AUC Score AUC Score: 8 Post-Procedure Diagnosis Post-Procedure Diagnosis: Severe CAD and Successful PCI Procedure(s) Performed Procedure(s) Performed: Coronary Angiography, Drug Eluting Stent, IVUS and Procedure (Intravascular lithotripsy) Hemp Fiber Taker Off Misbah Cotto MD Thermostatic Controls Supervisor(s) Brady Pugh Estimated Blood Loss Estimated Blood Loss: 30 Medication(s) Medication(s): Clopidogrel, Fentanyl, Heparin, Nicardipine, Nitroglycerin and Versed Summary of Findings Indication: Refractory angina Access: 6 Fr left radial artery Catheters: EBU 3.5 guide, telescope support catheter Findings: For full details of patient's coronary angiography please see cath report dict ated by Dr. Rose. Briefly, patient found to have patent OLSON to LAD, SVG to diagonal, moderate RCA disease and severe 95% ostial/proximal circumflex disease with no evidence of patent graft to circumflex territory.. Decision to proceed with PCI. -- PCI -- Antithrombotic therapy: Heparin, clopidogrel Procedure: Left main cannulated with EBU 3.5 guide Pre-procedure flow BIANCA 2 Cutter Operator 50 wire passed across lesion into distal vessel With aid of a telescope support catheter able to pass a 2.0 balloon across ostial stenosis and proximal/ostial circumflex dilated. Unable to pass 2.5 Rx balloon 2.0 xvac-vof-qras balloon passed into distal circumflex and wire exchanged for mailman support wire Proximal circumflex again dilated with 2.0 balloon and with inflated balloon able to pass telescope into circumflex Ostial/proximal circumflex further dilated with 2.5 and 3.0 balloons Rios IVUS catheter placed into mid circumflex. Pullback revealed large mid segment vessel without significant disease. Proximal vessel with severe calcified disease including heavily calcified circumferential ostial disease extending back into the left main. Proximal circumflex back into left main further dilated with 3.0 shockwave intravascular lithotripsy (50 pulses). Dilated lesion stented with 4.0 x 26 mm Mary Alice drug-eluting stent extending from mid circumflex back into distal left main Stent post-dilated with 4.0 noncompliant balloon IC vasodilators administered for spasm Repeat IVUS showed well-expanded and well apposed stent. Post procedure BIANCA 3 flow, stent well expanded with minimal residual stenosis and no apparent cardiac complications. Arterial Closure: TR band Summary: 1. Successful PCI of ostial/proximal circumflex with single drug-eluting stent (4.0 x 26 mm Mary Alice) extending from distal left main to mid circumflex. Recommendations: Reloaded with clopidogrel 300 mg in Dressing Room [place] Continue dual-antiplatelet therapy for at least 1 year. Consider extended P2Y12 in the setting of complex stenting Continue statin, and ASCVD risk factor modification Consult cardiac Rehab Hemodynamics Rest Ao:: 130/57/93 Final Ao: 128/53/87 LV: 1 3011 Recommendations Recommendations: PCI without planned CABG Specimens Specimens: None Radiation Exposure (mGy) 3661 Contrast (mls) 225 Anesthesia Moderate 4842-7900 Procedural Complication(s) None Disposition PCU I attest to the content of the Intraoperative Record and any orders documented therein. Any exceptions are noted below. [facility] Card Cath Procedure Codes Therapeutic Services & Ancillary Procedure 1: Cardiovascular Tx and Anc Procedures: 16561 IV Ultrasound (Coronary or Graft) Moderate Sedation Procedure 1: Sedation/Anesthesia: 55059 Mod Sedation by the same physician; Ea [id number] Minutes Stenting Procedure 1: Cardiovascular Stent Procedures: 33009 Perc transcatheter placement of intracoronary stent(s), with ang PG Care Time/CCT Total # of Minutes Spent Total Time Spent with Patient: Total time spent is greater than 50% in coordination of care (as documented) at patient's floor/unit and/or counseling patient:
[2023-03-08] MEDS ORDERED: LEVOTHYROXINE SODIUM 75 MCG TABLET PO SCH (06:30)
[2023-03-08] MEDS: ASPIRIN 81 MG ECTAB PO SCH ×2 (07:26→07:33)
[2023-03-08] MEDS: INSULIN ASPART PER UNIT CHARGE SC SCH ×2 (07:33→12:40)
--- NOTE | 2023-03-08 08:05 | Electrocardiogram Report ---
Test Reason : Blood Pressure : / mmHG Vent. Rate : 054 BPM Atrial Rate : 054 BPM P-R Int : 214 ms QRS Dur : 100 ms QT Int : 488 ms P-R-T Axes : 025 -11 101 degrees QTc Int : 462 ms Sinus bradycardia with 1st degree A-V block Minimal voltage criteria for LVH, may be normal variant ( [place] product ) Nonspecific T wave abnormality Abnormal ECG When compared with ECG of 29-JAN-2023 22:56, No significant change was found Confirmed by Alex Rose ([id number]) on 03/08/2023 8:04:53 AM Referred By: Alex Rose Confirmed By:Alex Rose
[2023-03-08 08:07] LABS: Basophils # (auto) 0.06 K/uL (0.00-0.20); Basophils % (auto) 0.7 %; Eosinophils # (auto) 0.17 K/uL (0.00-0.50); Eosinophils % (auto) 1.9 %; Hemoglobin 12.5 g/dl (14.0-18.0); Immature Granulocytes # (auto) 0.03 K/uL (0.01-0.20); Immature Granulocytes % (auto) 0.3 %; Lymphocytes # (auto) 1.78 K/uL (1.20-3.40); Lymphocytes % (auto) 19.4 %; Mean Corpuscular Hemoglobin 23.3 pg (25.0-34.0); Mean Corpuscular Hgb Conc 30.5 g/dL (32.0-36.0); Mean Corpuscular Volume 76.5 fL (80.0-100.0); Mean Platelet Volume 10.4 fL (9.4-12.4); Monocytes # (auto) 0.76 K/uL (0.11-0.59); Monocytes % (auto) 8.3 %; Neutrophils # (auto) 6.36 K/uL (1.40-6.50); Neutrophils % (auto) 69.4 %; Platelet Count 223 K/uL (130-400); RDW Coefficient of Variation 17.2 % (11.5-14.5); RDW Standard Deviation 46.9 fL (36.4-46.3); Red Blood Count 5.36 M/uL (4.70-6.10); White Blood Count 9.16 K/ul (4.8-10.8)
[2023-03-08 08:19] LABS: BUN Creatinine Ratio 10.4 (10-20); Calcium 9.2 mg/dl (8.6-10.3); Creatinine Clr Calc Pharmacy 52.2 ml/min; Est GFR (African American) 70.3 ml/min; Est GFR (Non-African American) 60.6 ml/min; Potassium 3.7 mmol/L (3.5-5.1)
--- NOTE | 2023-03-08 08:51 | Post Anesthesia Assessment ---
Date of Service March 08, 2023 Post Sedation Assessment Vital Signs Temp Pulse Pulse Resp BP Pulse Ox O2 Del Method 03/08/23 07:54 36.9 C 73 19 145/75 H 94 Room Air 03/08/23 07:30 60 03/08/23 03:05 37.0 C 76 20 163/83 H 93 Room Air 03/07/23 22:44 36.7 C 72 20 162/80 H 94 Room Air 03/07/23 21:30 75 03/07/23 21:00 36.8 C 64 18 164/78 H 95 Room Air 03/07/23 20:11 36.9 C 62 16 146/63 H 94 Room Air 03/07/23 19:05 36.7 C 74 16 147/69 H 93 Room Air 03/07/23 18:17 62 16 158/75 H 95 Room Air 03/07/23 17:17 67 16 174/85 H 95 Room Air 03/07/23 17:00 62 16 177/82 H 97 Room Air 03/07/23 16:30 68 16 158/76 H 96 Room Air 03/07/23 16:00 68 16 174/82 H 96 Room Air 03/07/23 15:40 56 L 16 171/80 H 97 Room Air 03/07/23 15:32 36.6 C 67 16 167/78 H 96 Room Air 03/07/23 15:25 59 L 16 163/83 H 97 Room Air 03/07/23 10:18 65 21 163/83 H 95 Room Air Recovery Score Activity: Moves 4 extremities Respiration: Deep Breath/Cough Circulation: +/-20% PreAnes Value Consciousness: Fully Awake Oxygen Saturation: > 92% On Room Air Post Anesthesia Score: 10 Discharge Sedation Level of Care: Fast Track Phase II Post Sedation Plan On clinical assessment, the patient appears to have tolerated the sedation without complications. Patient is recovering as anticipated. Patient will continue to be monitored by nursing and may be discharged when sedation discharge criteria are met per below protocol. Upon Completions of procedure up to 15 minutes continue every 5 minute vital signs and the P.A.R. score; then discharge to a Phase I or Fast Track to Phase II per the following guidelines: * Discharge Patient to appropriate Phase II area if PAR is 8 or greater or return to pre- procedure baseline. The post - procedure orders will be as directed. * If PAR score is less than 8 or not return to pre-procedure baseline then patient will follow Phase I monitoring till PAR is reached for Phase II. The Phase I may be done in procedure room or may call to secure a Phase I area. * If naloxone or flumazenil are used for reversal, hold in Phase I for continued monitoring from when last reversal dose was given for a minimum of 60 minutes or longer pending the nurse and/or physician discretion of patient condition before discharge to Phase II. Please call the Sedation Physician to re-evaluate and complete post-note for discharge to Phase II area. Do NOT discharge from procedure sedation or Phase 1 until post- sedation evaluation note is complete by procedure /sedation MD Sedation Discharge Instructions to be given to the patient at discharge to home.
[2023-03-08] MEDS ORDERED: PANTOprazole 40 MG TAB PO SCH (09:00)
[2023-03-08] MEDS ORDERED: CEROVITE ADV FORMULA TAB PO SCH (09:00)
[2023-03-08] MEDS ORDERED: NON-FORMULARY MEDICATION (Glucos Sul 2kcl-Msm-Chond-C-Mn [Glucosamine Chondroitin] 550-30- PO SCH (09:00)
[2023-03-08] MEDS ORDERED: CLOPIDOGREL BISULFATE 75 MG TAB PO SCH (09:00)
[2023-03-08] MEDS ORDERED: CHOLECALCIFEROL 5,000 UNITS 125 MCG TAB PO SCH (09:00)
[2023-03-08] MEDS ORDERED: NON-FORMULARY MEDICATION (Coenzyme Q10 [Coq-10] 100 mg Capsule) PO SCH (09:00)
[2023-03-08] MEDS ORDERED: LOSARTAN POTASSIUM 25 MG TAB PO SCH (09:00)
--- NOTE | 2023-03-10 14:58 | Discharge Summary ---
Date of Service March 10, 2023 Admission HPI Per Admitting Provider Dr. Rdz is a 77-year-old gentleman with a history significant for CAD s/p RCA PCI ([facility] 1999) and s/p CABG x 3 (2022), carotid artery stenosis, hypertension, hypothyroidism, dyslipidemia, and type [address] Rose for his cardiac care. Prior to CABG, angina consisted of chest pain/pressure. He was hospitalized and discharged on 01/30/2023 with NSTEMI and a peak troponin of 3834. Presenting symptom was abdominal pain which followed Tylenol 3 and spontaneously resolved. Inferolateral wall appeared hypokinetic on echo on 01/30/2023 and had exertional lower throat/neck pain during stress test. Seen recently for routine cardiology appointment. Last visit, he was placed on isosorbide mononitrate 30 mg daily for anginal symptoms after experiencing an NSTEMI with new wall motion abnormalities on echo imaging. Isosorbide mononitrate has improved symptoms but he continues to experience upper chest pressure while walking up a hill, accompanied by dyspnea on exertion. He believes the dyspnea on exertion is improving. He occasionally has his upper chest pressure while riding a bicycle. He continues to participate at cardiac rehab. Blood pressure has been reasonably well controlled there. He denies chest discomfort at rest. He denies syncope, near syncope, palpitations, edema, or bleeding such as melena, hematochezia, or hematuria. Discharge Data Procedures Performed Operation Date: 03/07/23 11:00 Actual Procedures p Cineradiography w/Routine Exam - Alex Rose MD s IVUS Coronary Single Vessel - Misbah Cotto MD s Coronary Lithotripsy - Misbah Cotto MD s Drug Eluting Stent SGl Vessel - Misbah Cotto MD p Cath, Left w/Cors Vent Grafts - Alex Rose MD Hospital Course (1) CAD, multiple vessel: Underwent cardiac catheterization with Dr. Rose via left radial artery. Found to have severe [place] vessel disease with 95% ostial/proximal circumflex disease. OLSON to LAD and SVG to diagonal patent. Graft to circumflex territory thought to be occluded. With his accelerating angina decision made to proceed with PCI to [place] circumflex. Underwent PCI with intravascular lithotripsy and placement of 1 drug-eluting stent from distal left main to mid circumflex. Procedure uncomplicated. Post procedure admitted for observation. Overnight no significant ectopy/arrhythmia. No recurrent chest pain. No access site complications. Post procedure labs stable. Discharge to home on DAPT with aspirin, clopidogrel. Prior Imdur discontinued. Follow-up with cardiology in 1 to 2 weeks. Coding Level of Care Code 55936 IN/OBS DISCH 30 MIN/LESS Diagnoses CAD, multiple vessel I25.10
== END 2023-03-08 13:20 | disposition home or self-care (01) ==
LOC: 2S 09:52 → CC 09:52

== ENCOUNTER 2024-06-30 15:17 | Inpatient (IN) ==
[2024-06-30 16:58] LABS: Basophils # (auto) 0.07 K/uL (0.00-0.20); Basophils % (auto) 0.4 %; Eosinophils # (auto) 0.13 K/uL (0.00-0.50); Eosinophils % (auto) 0.8 %; Hematocrit (blood only) 46.5 % (42.0-52.0); Immature Granulocytes # (auto) 0.08 K/uL (0.01-0.20); Immature Granulocytes % (auto) 0.5 %; Lymphocytes # (auto) 1.95 K/uL (1.20-3.40); Lymphocytes % (auto) 11.6 %; Mean Corpuscular Hemoglobin 25.8 pg (25.0-34.0); Mean Corpuscular Hgb Conc 32.3 g/dL (32.0-36.0); Mean Platelet Volume 9.7 fL (9.4-12.4); Monocytes # (auto) 1.23 K/uL (0.11-0.59); Monocytes % (auto) 7.3 %; Neutrophils # (auto) 13.33 K/uL (1.40-6.50); Neutrophils % (auto) 79.4 %; Platelet Count 309 K/uL (130-400); RDW Coefficient of Variation 17.3 % (11.5-14.5); RDW Standard Deviation 48.8 fL (36.4-46.3); Red Blood Count 5.81 M/uL (4.70-6.10); White Blood Count 16.79 K/ul (4.8-10.8)
[2024-06-30 17:11] LABS: Albumin Globulin Ratio 1.3 (0.9-2); Albumin Level 4.2 gm/dl (3.4-5.0); BUN Creatinine Ratio 12.7 (10-20); Bilirubin,Total 0.7 mg/dl (0.2-1.0); Calcium 9.5 mg/dl (8.6-10.3); Creatinine Clr Calc Pharmacy 39.7 ml/min; Globulin 3.2 gm/dl (2.5-4.0); Potassium 3.7 mmol/L (3.5-5.1); Total Protein 7.4 gm/dl (6.0-8.3)
[2024-06-30] MEDS: SODIUM CHLORIDE 0.9% 1,000 ML IV SCH (17:12)
--- NOTE | 2024-06-30 17:12 | Emergency Department Note ---
Impression & Plan Prostate abscess, Abdominal pain, Leukocytosis ED Provider Note NAME: ROHITH MURRAY AGE: 78 SEX: M : 1945 ARRIVES VIA: Walk-In INFORMANT: Patient ED PROVIDER(S): George Stevens DO CHIEF COMPLAINT: abdominal pain HPI: Patient is a 78-year-old male who presents to the ER with difficulty urinating and having bowel movements. He had a prostate biopsy which was performed over a week ago by [facility] urology. Since then he has been having increased urination and frequency. Denies any belly pain. No headache or change in vision. No chest pain or shortness of breath. No other exacerbating or remitting factors. ADDITIONAL HISTORY OBTAINED: Per HPI Chronic Medical/Social Conditions Affecting Care: Per HPI PAST MEDICAL HISTORY:See Below PAST SURGICAL HISTORY:See Below FAMILY HISTORY:See Below SOCIAL HISTORY:See Below HOME MEDICATIONS:See Below ALLERGIES:See Below VITALS:See Below PHYSICAL EXAMINATION: GENERAL: Sitting up in bed, alert, well appearing, well nourished, no distress, non-toxic EYE EXAM: normal conjunctiva. PERRL and EOM's grossly intact. OROPHARYNX: no exudate, no erythema, lips, buccal mucosa, and tongue normal and mucous membranes are moist NECK: supple, no nuchal rigidity, no adenopathy, non-tender LUNGS: Clear to auscultation. Normal chest wall mechanics HEART: no murmurs, S1 normal and S2 normal ABDOMEN: abdomen soft, non-tender, normo-active bowel sounds, no masses, no rebound or guarding. BACK: Back is symmetrical on inspection and there is no deformity, no midline tenderness, no CVA tenderness. SKIN: no rashes and no bruising UPPER EXTREMITIES: upper extremities are grossly normal. LOWER EXTREMITIES: No pitting edema. NEURO EXAM: Normal sensorium, cranial nerves II-XII grossly intact, normal speech, no gross weakness of arms, no gross weakness of legs. MEDICAL DECISION MAKING: Patient is a 78-year-old male with a past medical history of A-fib, CABG dyslipidemia who presents to the ER for the above-stated complaint. IV was established and blood work was obtained. External records were reviewed from 06/23/2024 transurethral prostate biopsy performed by urology under the ultrasound guidance. Labs show leukocytosis of 16.7 thousand. No significant anemia. BMP with creatinine 1.5. LFTs and bilirubin were unremarkable. UA with whites and leuks. Patient was covered with IV Zosyn. Updated at bedside and discussed with urology Dr. Rios who agreed with admission. Discussed with [facility] hospitalist Clarissa العراقي for further evaluation management treatment and admission to her service. Consults/Care Managements Discussions: Per MDM Triage Nursing notes reviewed. Limited review of prior medical records performed Vital Signs: reviewed and remarkable for no significant abnormalities Differential diagnosis: Differential diagnoses includes but is not limited to gastritis, peptic ulcer disease, GERD, gallbladder disease, pancreatitis, small bowel obstruction, appendicitis, diverticulitis, hernia, urinary tract infection, torsion, perforation, trauma, infectious. ER treatment provided: See below Diagnostics interpreted by me include EKG and cardiac monitoring as listed below: -Cardiac Monitoring: An order was placed for continuous cardiac monitoring. The monitor shows a rate of 80 with sinus rhythm. -ECG: none -Laboratory studies:Interpreted by me as stated above in MDM and shown below. Imaging studies: Xrays: As interpreted by me:none CTs show: CT abdomen pelvis per my preliminary interpretation showed no obvious bowel obstruction CT abdomen pelvis per radiology as described above Procedures:none Critical Care: None Past Med/Surg History Problem List (Updated 06/30/24 @ 22:06 by George Stevens DO) Leukocytosis (Acute) Abdominal pain (Acute) Prostate abscess (Acute) Nausea Fever Prostate cancer BPH (benign prostatic hyperplasia) Iron deficiency Hypothyroidism Elevated PSA S/P coronary artery stent placement Mitral regurgitation Hypertension CAD, multiple vessel Diabetes Hyperlipidemia Exertional angina Biliary colic symptom Non-ST elevation (NSTEMI) myocardial infarction Elevated troponin (Acute) Elevated troponin Abdominal pain GERD (gastroesophageal reflux disease) Interatrial septal aneurysm with PFO Lumbar disc disease with radiculopathy Trochanteric bursitis 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 Urinary symptom or sign Prostate cancer screening Neuropathy Right leg pain Trochanteric bursitis, right hip Angina pectoris, unspecified Frequent PVCs Chest pressure Dyslipidemia Presence of bare metal stent in right coronary artery Perforation of tympanic membrane Atrial fibrillation Postoperative atrial fibrillation S/P CABG (coronary artery bypass graft) Carotid artery stenosis CAD (coronary artery disease) s/p BMS x 1 1999 Medical History Umbilical hernia Encounter for pre-operative examination Degenerative disc disease L4-L5 Diabetes mellitus, type 2 Surgical History History of coronary artery bypass graft 08/17/2022 H/O ventral hernia repair (12/18/18) Diagnostic Laprascopy and Open Ventral Hernia Repair Dr. Cowan 12-18-18 History of ventral hernia repair 10/09/18 [facility] Hx of bilateral cataract extraction History of cardiac cath 2/2 abnormal stress test ~[address] [facility]. 1 stent to proximal RCA. History of open reduction and internal fixation (ORIF) procedure RIGHT ANKLE History of herniorrhaphy RIGHT INGUINAL History of cholecystectomy LAP History of colonoscopy Family History Grandfather Stomach cancer Denies family history of Ovarian cancer Prostate cancer Myocardial infarction Breast cancer Lung cancer Colorectal cancer Social History (Updated 03/03/24 @ 10:43 by Lea Dunaway LPN) Smoking Status: Unknown if ever smoked Second Hand Exposure: No; Do You Dip or Chew Tobacco: No; Hx Alcohol Use: No Hx Substance Use: No Preferred Language: Yakut Communication Ability: Effective Visual Impairment: Limited Hearing Ability: Use of Hearing Aid Dietary Tech Required: No Beliefs That Will Affect Care: None marital status: / Current Living Situation: Alone Current Living Situation Comment: [facility] at [facility] current occupational status: retired 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 How many Children do You have: 0 Feels Safe at Home: Yes Childhood Exposure to Second-Hand Smoke: No Diet: low carbohydrate caffeine: Yes Dental Care, Regularly: Yes Physical Activity Frequency: 3-4 Times per Week Seatbelt Use: always Sunscreen Use: Yes Assistive Devices: Glasses and Hearing Aid - Bilateral Allergies Allergies Allergy/AdvReac Type Severity Reaction Status Date / Time benzoyl peroxide Allergy Intermediate Rash Verified 04/18/24 07:57 adhesive tape AdvReac Mild Rash Verified 04/18/24 07:57 Home Meds Home Medications Medication Instructions Recorded Confirmed docusate sodium 100 mg capsule 100 mg PO DAILY PRN Constipation 09/05/22 06/30/24 (Colace) ondansetron HCl 4 mg tablet 4 mg PO Q8H PRN Nausea And Vomiting 09/05/22 06/30/24 acetaminophen 500 mg tablet 1,000 mg PO Q4-5H PRN Pain 01/29/23 06/30/24 (Tylenol Extra Strength) aspirin 81 mg tablet,delayed 81 mg PO QPM 01/29/23 06/30/24 release cholecalciferol (vitamin D3) 125 125 mcg PO QAM 01/29/23 06/30/24 mcg (5,000 unit) tablet (Vitamin D3) coenzyme Q10 100 mg capsule 100 mg PO QAM 01/29/23 06/30/24 (CoQ-10) Lactobacillus rhamnosus-Bifidobac. 1 cap PO QAM 03/03/24 06/30/24 animalis 3 billion cell capsule (Demandbase) ferrous sulfate 325 mg (65 mg 325 mg PO QAM 06/30/24 06/30/24 iron) tablet multivitamin 1 tab PO QAM 06/30/24 06/30/24 tamsulosin 0.4 mg capsule 0.4 mg PO BID 06/30/24 06/30/24 Previous Rx's Medication Instructions Recorded rosuvastatin 20 mg tablet 20 mg PO QPM #90 tabs 05/15/23 semaglutide 0.25 mg or 0.5 mg (2 0.5 mg (0.736 mL) subcut WK #3 mL 07/16/23 mg/3 mL) subcutaneous pen injector (Ozempic) irbesartan 75 mg tablet 75 mg PO QAM #90 tabs 08/27/23 omeprazole 20 mg capsule,delayed 20 mg PO DAILY #90 caps 08/27/23 release metoprolol succinate 50 mg 50 mg PO QPM #90 tabs 03/18/24 tablet,extended release 24 hr clopidogrel 75 mg tablet 75 mg PO DAILY #90 tabs 05/08/24 tadalafil 5 mg tablet 5 mg PO DAILY #90 tabs 06/03/24 hydrochlorothiazide 12.5 mg tablet 12.5 mg PO DAILY #90 tabs 06/19/24 Results & Data (ED) Vital Signs Vital Signs - 24 hr 06/30/24 15:28 06/30/24 17:01 06/30/24 17:19 Temperature 36.6 C Temperature Source Oral Pulse Rate 104 H 81 Pulse Rate [Right Finger] 82 Respiratory Rate 20 17 Respiratory Effort / Characteristics Non-Labored Spontaneous Respiratory Depth Normal Respiratory Pattern Regular Blood Pressure 122/68 Blood Pressure [Right Arm] 165/73 H Blood Pressure Mean 86 Blood Pressure Mean [Right Arm] 103 Blood Pressure Position [Right Arm] Pulse Oximetry 97 95 Oxygen Delivery Method Room Air Room Air Sepsis Recent Fever Within 48 Hours Yes Sepsis New/Unexplained Change in Mental Status N/A Sepsis Action Taken by Nursing No Action Required 06/30/24 18:15 06/30/24 20:46 06/30/24 20:50 Temperature Temperature Source Pulse Rate 80 Pulse Rate [Right Finger] 68 86 Respiratory Rate 19 18 Respiratory Effort / Characteristics Non-Labored Spontaneous Non-Labored Spontaneous Respiratory Depth Normal Normal Respiratory Pattern Regular Blood Pressure Blood Pressure [Right Arm] 132/60 145/64 H Blood Pressure Mean Blood Pressure Mean [Right Arm] 84 91 Blood Pressure Position [Right Arm] Semi-fowlers Pulse Oximetry 97 100 Oxygen Delivery Method Room Air Room Air Sepsis Recent Fever Within 48 Hours Sepsis New/Unexplained Change in Mental Status Sepsis Action Taken by Nursing 06/30/24 21:34 Temperature Temperature Source Pulse Rate Pulse Rate [Right Finger] 86 Respiratory Rate 20 Respiratory Effort / Characteristics Non-Labored Spontaneous Respiratory Depth Normal Respiratory Pattern Regular Blood Pressure Blood Pressure [Right Arm] 104/64 Blood Pressure Mean Blood Pressure Mean [Right Arm] 77 Blood Pressure Position [Right Arm] Semi-fowlers Pulse Oximetry 96 Oxygen Delivery Method Room Air Sepsis Recent Fever Within 48 Hours Sepsis New/Unexplained Change in Mental Status Sepsis Action Taken by Nursing Laboratory Data 06/30/24 16:33 06/30/24 16:33 Lab Results 06/30/24 06/30/24 06/30/24 Range/Units 16:33 18:34 21:51 WBC 16.79 H (4.8-10.8) K/ul RBC 5.81 (4.70-6.10) M/uL Hgb 15.0 (14.0-18.0) g/dl Hct 46.5 (42.0-52.0) % MCV 80.0 (80.0-100.0) fL MCH 25.8 (25.0-34.0) pg MCHC 32.3 (32.0-36.0) g/dL RDW Std Deviation 48.8 H (36.4-46.3) fL RDW Coeff of Jenna 17.3 H (11.5-14.5) % Plt Count 309 (130-400) K/uL MPV 9.7 (9.4-12.4) fL Immature Gran % (Auto) 0.5 % Neut % (Auto) 79.4 % Lymph % (Auto) 11.6 % [place] % (Auto) 7.3 % Eos % (Auto) 0.8 % Baso % (Auto) 0.4 % Neut # (Auto) 13.33 H (1.40-6.50) K/uL Lymph # (Auto) 1.95 (1.20-3.40) K/uL [place] # (Auto) 1.23 H (0.11-0.59) K/uL Eos # (Auto) 0.13 (0.00-0.50) K/uL Baso # (Auto) 0.07 (0.00-0.20) K/uL Immature Gran # (Auto) 0.08 (0.01-0.20) K/uL Sodium 138 (136-145) mmol/L Potassium 3.7 (3.5-5.1) mmol/L Chloride 102 (98-107) mmol/L Carbon Dioxide 29 (21-32) mmol/L Anion Gap 7 (3-11) BUN 19 (6-23) mg/dl Creatinine 1.50 H (0.6-1.4) mg/dl Est Cr Clr Drug Dosing 39.7 ml/min eGFR 47.06 BUN/Creatinine Ratio 12.7 (10-20) Glucose 141 H (70-99(Fasting)) mg/dl POC Glucose 126 H (70-99) mg/dl Calcium 9.5 (8.6-10.3) mg/dl Total Bilirubin 0.7 (0.2-1.0) mg/dl AST 24 (13-39) U/L ALT 49 (7-52) U/L Alkaline Phosphatase 96 (34-104) U/L Total Protein 7.4 (6.0-8.3) gm/dl Albumin 4.2 (3.4-5.0) gm/dl Globulin 3.2 (2.5-4.0) gm/dl Albumin/Globulin Ratio 1.3 (0.9-2) Urine Color Yellow Urine Appearance Clear (Clear) Urine pH 6.5 (4.5-7.5) Ur Specific [place] > 1.045 H (1.000-1.030) Urine Protein Trace H (Negative) Urine Glucose (UA) Negative (Negative) Urine Ketones Negative (Negative) Urine Blood 2+ H (Negative) Urine Nitrite Negative (Negative) Urine Bilirubin Negative (Negative) Urine Urobilinogen Negative (Negative) Ur Leukocyte Esterase Trace H (Negative) Urine WBC (Auto) 6-10 H (0-5) /hpf Urine RBC (Auto) 11-20 H (0-2) /hpf U Hyaline Cast (Auto) 6-10 H (0-2) /lpf U Epithel Cells (Auto) 0-2 (0-2) /hpf Urine Bacteria (Auto) None Seen (None Seen) Urine Mucus Present A (None Prsent) Administered Medications Discontinued Medications Aspirin (Aspirin 81 Mg Ectab) 81 mg PO NOW STA Stop: 06/30/24 19:48 Last Admin: 06/30/24 20:07 Dose: 81 mg Documented By: AKOSUA Sodium Chloride (Nss) 1,000 mls @ 999 mls/hr IV .Q1H1M KENNA Stop: 06/30/24 19:15 Last Infusion: 06/30/24 18:15 Dose: Infused Documented By: Admin: 06/30/24 17:20 Dose: 999 mls/hr Documented By: Infusion: 06/30/24 17:20 Dose: Infused Documented By: Admin: 06/30/24 17:12 Dose: 999 mls/hr Documented By: ANDREZ Piperacillin Sod/Tazobactam Sod (Zosyn) 4.5 gm in 100 mls @ 200 mls/hr IV NOW ONE; Protocol Stop: 06/30/24 19:19 Last Infusion: 06/30/24 20:48 Dose: Infused Documented By: Admin: 06/30/24 19:55 Dose: 200 mls/hr Documented By: AKOSUA Ioversol (Optiray 320 100ml) 92 ml IV ONCE ONE Stop: 06/30/24 17:28 Last Admin: 06/30/24 17:27 Dose: 92 ml Documented By: LATRICIA Metoprolol Succinate (Metoprolol Succ 50mg Ext Rel Tab) 50 mg PO NOW STA Stop: 06/30/24 19:48 Last Admin: 06/30/24 20:07 Dose: 50 mg Documented By: AKOSUA Rosuvastatin Calcium (Rosuvastatin Calcium 20 Mg Tab) 20 mg PO NOW STA Stop: 06/30/24 19:48 Last Admin: 03/17/25 20:08 Dose: 20 mg Documented By: EMB Tamsulosin HCl (Tamsulosin Hcl 0.4 Mg Cap) 0.4 mg PO NOW ONE Stop: 06/30/24 19:48 Last Admin: 06/30/24 20:07 Dose: 0.4 mg Documented By: EMB Imaging Data Radiologist's Impression: Abdomen/Pelvis CT 06/30/24 17:09 INDICATION: Difficulty urinating. Recent prostate biopsy. Low-grade fever. COMPARISON: No relevant priors available. TECHNIQUE: Axial CT images of the abdomen and pelvis were obtained following IV contrast administration. Coronal and sagittal reformations were reviewed. FINDINGS: Pulmonary nodules measuring up to 1.3 cm. The gallbladder is surgically absent. The liver, spleen, pancreas and adrenal glands appear unremarkable. No hydronephrosis. A few subcentimeter bilateral renal cysts noted. Moderate-sized hiatal hernia. No evidence of bowel obstruction/colitis/appendicitis. No free air. Inflammation surrounding the prostate gland. Multiloculated fluid collection extending from the posterior/left lateral aspect of the prostate gland measuring approximately 4.4 x 3.5 x 3.2 cm. Small fat-containing bilateral inguinal hernias. Mild urinary bladder wall thickening. Atheromatous plaquing of the abdominal aorta without dissection or aneurysm. Degenerative changes in the hips and spine. No acute osseous abnormality evident. IMPRESSION: 1. Inflammation surrounding the prostate gland. Multiloculated fluid collection extending from the posterior/left lateral aspect of the prostate gland measuring approximately 4.4 x 3.5 x 3.2 cm. Findings concerning for abscess. Follow-up as clinically relevant. 2. Mild urinary bladder wall thickening. 3. Pulmonary nodules measuring up to 1.3 cm concerning for metastatic disease. Follow-up is anticipated. 4. Small bilateral renal cysts. 5. Fat-containing bilateral inguinal hernias. 6. Moderate size hiatal hernia. ACT 112: Positive. There are findings on this exam that require communication between the performing entity and the patient following Patient Test Result Information Act ([place] ACT 112) guidelines. Electronically signed by Salvador Scott 06-30-2024 5:52 PM Discharge Plan Visit Data Chief Complaint: GI Assessment Stated Complaint: URINARY,BOWEL OBSTRUCTION/PROSTATE CANCER,INFECT. ED Provider: George Stevens Discharge Problem: Prostate abscess, Abdominal pain, Leukocytosis Patient Disposition: Admitted As Inpatient Discharge Instructions Interventions: ED Discharge Assessment Last Done: 06/30/24 21:38 Forms Stand Alone Forms: My [facility] Prescriptions Prescriptions: No Action rosuvastatin 20 mg tablet 20 mg PO QPM Qty: 90 3RF Ozempic 0.25 mg or 0.5 mg (2 mg/3 mL) pen injector 0.5 mg subcut WK Qty: 3 11RF Rx Instructions: SUNDAY, PATIENT REPORTED HE TAKES ABOUT "0.4MG" omeprazole 20 mg capsule,delayed release(DR/EC) 20 mg PO DAILY Qty: 90 3RF irbesartan 75 mg tablet 75 mg PO QAM Qty: 90 3RF metoprolol succinate 50 mg tablet extended release 24 hr 50 mg PO QPM Qty: 90 3RF clopidogrel 75 mg tablet 75 mg PO DAILY Qty: 90 3RF tadalafil 5 mg tablet 5 mg PO DAILY Qty: 90 3RF Rx Instructions: do not take if using nitroglycerin hydrochlorothiazide 12.5 mg tablet 12.5 mg PO DAILY Qty: 90 3RF ondansetron HCl 4 mg tablet 4 mg PO Q8H PRN (Reason: Nausea And Vomiting) docusate sodium [Colace] 100 mg capsule 100 mg PO DAILY PRN (Reason: Constipation) Demandbase 3 billion cell capsule 1 cap PO QAM aspirin 81 mg tablet,delayed release (DR/EC) 81 mg PO QPM acetaminophen [Tylenol Extra Strength] 500 mg Tablet 1,000 mg PO Q4-5H PRN (Reason: Pain) coenzyme Q10 [CoQ-10] 100 mg Capsule 100 mg PO QAM cholecalciferol (vitamin D3) [Vitamin D3] 125 mcg (5,000 unit) Tablet 125 mcg PO QAM multivitamin Tablet 1 tab PO QAM Rx Instructions: PATIENT PREFERS VITAMIN WITHOUT MINERALS ferrous sulfate 325 mg (65 mg iron) Tablet 325 mg PO QAM tamsulosin 0.4 mg capsule 0.4 mg PO BID Referrals Referrals: Cristobal Winter MD [Primary Care Provider] - Discharge Problem: Abdominal pain Qualifiers: Abdominal location: unspecified location Qualified Code(s): R10.9 - Unspecified abdominal pain Leukocytosis Qualifiers: Leukocytosis type: unspecified Qualified Code(s): D72.829 - Elevated white blood cell count, unspecified
[2024-06-30] MEDS: OPTIRAY 320 100ml IV ONE (17:27)
--- NOTE | 2024-06-30 17:54 | CT Scan Report ---
INDICATION: Difficulty urinating. Recent prostate biopsy. Low-grade fever. COMPARISON: No relevant priors available. TECHNIQUE: Axial CT images of the abdomen and pelvis were obtained following IV contrast administration. Coronal and sagittal reformations were reviewed. FINDINGS: Pulmonary nodules measuring up to 1.3 cm. The gallbladder is surgically absent. The liver, spleen, pancreas and adrenal glands appear unremarkable. No hydronephrosis. A few subcentimeter bilateral renal cysts noted. Moderate-sized hiatal hernia. No evidence of bowel obstruction/colitis/appendicitis. No free air. Inflammation surrounding the prostate gland. Multiloculated fluid collection extending from the posterior/left lateral aspect of the prostate gland measuring approximately 4.4 x 3.5 x 3.2 cm. Small fat-containing bilateral inguinal hernias. Mild urinary bladder wall thickening. Atheromatous plaquing of the abdominal aorta without dissection or aneurysm. Degenerative changes in the hips and spine. No acute osseous abnormality evident. IMPRESSION: 1. Inflammation surrounding the prostate gland. Multiloculated fluid collection extending from the posterior/left lateral aspect of the prostate gland measuring approximately 4.4 x 3.5 x 3.2 cm. Findings concerning for abscess. Follow-up as clinically relevant. 2. Mild urinary bladder wall thickening. 3. Pulmonary nodules measuring up to 1.3 cm concerning for metastatic disease. Follow-up is anticipated. 4. Small bilateral renal cysts. 5. Fat-containing bilateral inguinal hernias. 6. Moderate size hiatal hernia. ACT 112: Positive. There are findings on this exam that require communication between the performing entity and the patient following Patient Test Result Information Act ([place] ACT 112) guidelines. Electronically signed by Salvador Scott 06-30-2024 5:52 PM
[2024-06-30 18:58] LABS: Appearance Urine Clear (Clear); Bacteria Urine Automated None Seen (None Seen); Bilirubin Urine Negative (Negative); Blood Urine 2+ (Negative); Color Urine Yellow; Epithelial Cell Urine Auto 0-2 /hpf (0-2); Glucose Urine UA Negative (Negative); Ketones Urine Negative (Negative); Leukocyte Esterase Urine Trace (Negative); Mucus Urine Present (None Prsent); Nitrite Urine Negative (Negative); Protein Urine Trace (Negative); Specific Gravity Urine > 1.045 (1.000-1.030); Urobilinogen Urine Negative (Negative); pH Urine 6.5 (4.5-7.5)
[2024-06-30] MEDS: PIPERACILLIN/TAZOBACTAM 4.5 GM/100 ML BAG IV ONE (19:55)
--- NOTE | 2024-06-30 19:57 | History & Physical Report ---
Date of Service June 30, 2024 Assessment & Plan (1) Prostate abscess: (2) Lung nodules: (3) CAD, multiple vessel: (4) BPH (benign prostatic hyperplasia): (5) Diabetes: (6) Hyperlipidemia: (7) GERD (gastroesophageal reflux disease): (8) Hypothyroidism: Plan 78yo male with history of CAD s/p CABG, HLP, DM, newly diagnosed prostate cancer presenting with ongoing dysuria/increased urinary frequency and urgency as well as difficulty passing BM ongoing since having prostate biopsy on 06/23/24. CT of the abdomen as above with inflammation surrounding the prostate gland with multiloculated fluid collection extending from the posterior/left lateral aspect of the prostate gland - concerning for abscess. Also noted to have multiple pulmonary nodules concerning for metastatic disease #Prostate abscess - CT findings as above. Patient is afebrile, HD stable. Does endorse low-grade fevers ongoing since the biopsy on 06/23. Leukocytosis with WBC=16.29 -Admit to medical -Continue Zosyn 4.5gm IV q 8 -Urology consultation appreciated -Bladder scan with straight cath as needed -Patient requesting bowel regimen - Senna 8.6mg po qAM, Colace and Miralax PRN #Lung nodules - incidental finding noted on lung bases on CT of the abdomen, concerning for metastatic disease. Patient with minimal tobacco history (pipe for a short time in college). Does endorse some abdominal pain and change in bowel habits for the last several months. Uncertain when last colonoscopy was. Patient was reluctant to have additional workup of nodules at this time, thinks that they may be residual from his CABG surgery which is unfortunately unlikely. Review of prior records from [facility] with no dedicated chest CT performed for comparison. Prior CT of the abdomen performed at [facility] on 01/29/23 with no nodules. -Check CT chest -Consider Pulmonary consultation for possible biopsy after further discussion with patient #CAD - s/p CABG x 3V with subsequent stenting. Patient denies chest pain -Continue ASA 81mg po daily -Continue Plavix 75mg po daily -Continue Metoprolol 50mg po qPM -Continue Crestor 20mg po qPM #BPH -Continue Flomax 0.4mg po BID -Bladder scan and straight cath as needed #Diabetes - overall well controlled. Patient on Ozempic. Last LezR8G=8.6 on 03/03/24 -ISS, goal blood sugar 110 - 140 #Hyperlipidema - chronic -Continue Crestor #GERD - chronic -Protonix 40mg po daily while inpatient #Hypothyroidism - chronic. Last TSH=2.801 on 03/03/24 -Continue Synthroid F/E/N - Saline lock. Encourage PO intake. Electrolytes WNL. CC diet as tolerated Ppx - SCDs Code - DNR/DNI per discussion with patient Dispo - Admit to medical History of Present Illness Chief Complaint: rectal pain, constipation Primary Care Provider: Cristobal Winter MD Jose Manuel Rdz is a 78yo male with history of DM, AF, GERD, HLP and CAD s/p 3v CABG in 2022 with failed graft with subsequent stenting presenting with difficulty urinating and difficulty having a bowel movement. Patient with BPH with LUTS and follows with Urology. He was found to have an elevated PSA 12.057 on 03/03/24. He had an MRI of the prostate performed which revealed several lesions concerning for malignancy. Patient underwent a transrectal ultrasound-guided prostate biopsy performed on 06/24/[address] Peterson - pathology revealed invasive ductal carcinoma, intraductal carcinoma and acinar carcinoma. He reports having a low grade fever ongoing since the biopsy on 06/23. He also reports ongoing cramping in the left rectal area as well as difficulty passing stool which prompted him to come to the ER. Additionally patient reports change of bowel movement ongoing for the last several months - he has been having more loose stools - thought to be secondary to change of diet, increased fiber. He has also had occasional RLQ abdominal discomfort and dark colored stools for the last three months with occasional bloating. He reports stable weight. No sweats. Has had a cough for the last several days, no SOB. ER Course: Zosyn 4.5gm Post-void residual volume NEGATIVE Allergies Allergy/AdvReac Type Severity Reaction Status Date / Time benzoyl peroxide Allergy Intermediate Rash Verified 04/18/24 07:57 adhesive tape AdvReac Mild Rash Verified 04/18/24 07:57 Home Medications Medication Instructions Recorded Confirmed Type docusate sodium 100 mg capsule 100 mg PO DAILY PRN Constipation 09/05/22 06/30/24 History (Colace) ondansetron HCl 4 mg tablet 4 mg PO Q8H PRN Nausea And Vomiting 09/05/22 06/30/24 History acetaminophen 500 mg tablet 1,000 mg PO Q4-5H PRN Pain 01/29/23 06/30/24 History (Tylenol Extra Strength) aspirin 81 mg tablet,delayed 81 mg PO QPM 01/29/23 06/30/24 History release cholecalciferol (vitamin D3) 125 125 mcg PO QAM 01/29/23 06/30/24 History mcg (5,000 unit) tablet (Vitamin D3) coenzyme Q10 100 mg capsule 100 mg PO QAM 01/29/23 06/30/24 History (CoQ-10) rosuvastatin 20 mg tablet 20 mg PO QPM #90 tabs 05/15/23 06/30/24 Rx semaglutide 0.25 mg or 0.5 mg (2 0.5 mg (0.736 mL) subcut WK #3 mL 07/16/23 06/30/24 Rx mg/3 mL) subcutaneous pen injector (Ozempic) irbesartan 75 mg tablet 75 mg PO QAM #90 tabs 08/27/23 06/30/24 Rx omeprazole 20 mg capsule,delayed 20 mg PO DAILY #90 caps 08/27/23 06/30/24 Rx release Lactobacillus rhamnosus-Bifidobac. 1 cap PO QAM 03/03/24 06/30/24 History animalis 3 billion cell capsule ([employer]) metoprolol succinate 50 mg 50 mg PO QPM #90 tabs 03/18/24 06/30/24 Rx tablet,extended release 24 hr clopidogrel 75 mg tablet 75 mg PO DAILY #90 tabs 05/08/24 06/30/24 Rx tadalafil 5 mg tablet 5 mg PO DAILY #90 tabs 06/03/24 06/30/24 Rx hydrochlorothiazide 12.5 mg tablet 12.5 mg PO DAILY #90 tabs 06/19/24 06/30/24 Rx ferrous sulfate 325 mg (65 mg 325 mg PO QAM 06/30/24 06/30/24 History iron) tablet multivitamin 1 tab PO QAM 06/30/24 06/30/24 History tamsulosin 0.4 mg capsule 0.4 mg PO BID 06/30/24 06/30/24 History Past Med/Surg History Problem List (Updated 06/30/24 @ 22:07 by Kiley M Malcom, DO) Lung nodules Leukocytosis (Acute) Abdominal pain (Acute) Prostate abscess (Acute) Nausea Fever Prostate cancer BPH (benign prostatic hyperplasia) Iron deficiency Hypothyroidism Elevated PSA S/P coronary artery stent placement Mitral regurgitation Hypertension CAD, multiple vessel Diabetes Hyperlipidemia Exertional angina Biliary colic symptom Non-ST elevation (NSTEMI) myocardial infarction Elevated troponin (Acute) Elevated troponin Abdominal pain GERD (gastroesophageal reflux disease) Interatrial septal aneurysm with PFO Lumbar disc disease with radiculopathy Trochanteric bursitis 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 Urinary symptom or sign Prostate cancer screening Neuropathy Right leg pain Trochanteric bursitis, right hip Angina pectoris, unspecified Frequent PVCs Chest pressure Dyslipidemia Presence of bare metal stent in right coronary artery Perforation of tympanic membrane Atrial fibrillation Postoperative atrial fibrillation S/P CABG (coronary artery bypass graft) Carotid artery stenosis CAD (coronary artery disease) s/p BMS x 1 1999 Medical History Umbilical hernia Encounter for pre-operative examination Degenerative disc disease L4-L5 Diabetes mellitus, type 2 Surgical History History of coronary artery bypass graft 08/17/2022 H/O ventral hernia repair (12/18/18) Diagnostic Laprascopy and Open Ventral Hernia Repair Dr. Cowan 12-18-18 History of ventral hernia repair 10/09/18 [facility] Hx of bilateral cataract extraction History of cardiac cath 2/2 abnormal stress test ~[address] [facility]. 1 stent to proximal RCA. History of open reduction and internal fixation (ORIF) procedure RIGHT ANKLE History of herniorrhaphy RIGHT INGUINAL History of cholecystectomy LAP History of colonoscopy Family History Grandfather Stomach cancer Denies family history of Ovarian cancer Prostate cancer Myocardial infarction Breast cancer Lung cancer Colorectal cancer Social History Smoking Status: Unknown if ever smoked Second Hand Exposure: No; Do You Dip or Chew Tobacco: No; Hx Alcohol Use: No Hx Substance Use: No Preferred Language: Monegasque Communication Ability: Effective Visual Impairment: Limited Hearing Ability: Use of Hearing Aid 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 Production Required: No Beliefs That Will Affect Care: None marital status: / Current Living Situation: Alone Current Living Situation Comment: [facility] current occupational status: retired 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 How many Children do You have: 0 Feels Safe at Home: Yes Childhood Exposure to Second-Hand Smoke: No Diet: low carbohydrate caffeine: Yes Dental Care, Regularly: Yes Physical Activity Frequency: 3-4 Times per Week Seatbelt Use: always Sunscreen Use: Yes Assistive Devices: Glasses and Hearing Aid - Bilateral Review of Systems Review of Systems: All systems reviewed & are unremarkable except as noted in HPI & below Physical Exam Physical Exam: General: patient resting comfortably, NAD, non-toxic in appearance, AA&O x 4 Skin: warm, dry, intact, no rashes or lesions HEENT: NC/AT, PERRL, EOMI, anicteric sclera, conjunctiva without injection, e xternal ear normal to inspection and nontender, nares patent, moist mucus membranes, dentition intact, no oropharyngeal lesions, neck supple, trachea midline, no LAD, no thyromegaly, no JVD Heart: +S1/S2, regular, no m/r/g Lungs: equal air entry bilaterally, no rales/rhonchi/wheezes Abd: +BS, soft, NT/ND, no masses/organomegaly/ascites Ext: warm, 2+ pulses in UE/LE bilaterally, no clubbing/cyanosis or edema Neuro: nonfocal, patient AA&O x 4, speech intact, no facial droop, moving all extremities on command with equal strength 5/5 Results & Data Results & Data Vital Signs (Past 12 Hours) Vital Signs Temp Pulse Pulse Resp BP BP Pulse Ox 06/30/24 18:15 68 19 132/60 97 06/30/24 17:19 81 06/30/24 17:01 82 17 165/73 H 95 06/30/24 15:28 36.6 C 104 H 20 122/68 97 O2 Del Method 06/30/24 18:15 Room Air 06/30/24 17:19 06/30/24 17:01 Room Air 06/30/24 15:28 Room Air Laboratory Results Laboratory Results WBC 16.79 K/ul (4.8-10.8) H 06/30/24 16:33 RBC 5.81 M/uL (4.70-6.10) 06/30/24 16:33 Hgb 15.0 g/dl (14.0-18.0) 06/30/24 16:33 Hct 46.5 % (42.0-52.0) 06/30/24 16: MCV 80.0 fL (80.0-100.0) 06/30/24 16: MCH 25.8 pg (25.0-34.0) 06/30/24 16: MCHC 32.3 g/dL (32.0-36.0) 06/30/24 16: RDW Std Deviation 48.8 fL (36.4-46.3) H 06/30/24 16: RDW Coeff of Jenna 17.3 % (11.5-14.5) H 06/30/24 16: Plt Count 309 K/uL (130-400) 06/30/24 16: MPV 9.7 fL (9.4-12.4) 06/30/24 16:33 Immature Gran % (Auto) 0.5 % 06/30/24 16:33 Neut % (Auto) 79.4 % 06/30/24 16:33 Lymph % (Auto) 11.6 % 06/30/24 16:33 Emery % (Auto) 7.3 % 06/30/24 16:33 Eos % (Auto) 0.8 % 06/30/24 16:33 Baso % (Auto) 0.4 % 06/30/24 16:33 Neut # (Auto) 13.33 K/uL (1.40-6.50) H 06/30/24 16:33 Lymph # (Auto) 1.95 K/uL (1.20-3.40) 06/30/24 16:33 Emery # (Auto) 1.23 K/uL (0.11-0.59) H 06/30/24 16:33 Eos # (Auto) 0.13 K/uL (0.00-0.50) 06/30/24 16:33 Baso # (Auto) 0.07 K/uL (0.00-0.20) 06/30/24 16: Immature Gran # (Auto) 0.08 K/uL (0.01-0.20) 06/30/24 16:33 Sodium 138 mmol/L (136-145) 06/30/24 16:33 Potassium 3.7 mmol/L (3.5-5.1) 06/30/24 16:33 Chloride 102 mmol/L (98-107) 06/30/24 16:33 Carbon Dioxide 29 mmol/L (21-32) 06/30/24 16:33 Anion Gap 7 (3-11) 06/30/24 16:33 BUN 19 mg/dl (6-23) 06/30/24 16:33 Creatinine 1.50 mg/dl (0.6-1.4) H 06/30/24 16:33 Est Cr Clr Drug Dosing 39.7 ml/min 06/30/24 16:33 eGFR 47.06 06/30/24 16:33 BUN/Creatinine Ratio 12.7 (10-20) 06/30/24 16:33 Glucose 141 mg/dl (70-99(Fasting)) H 06/30/24 16:33 POC Glucose 126 mg/dl (70-99) H 06/30/24 21:51 Calcium 9.5 mg/dl (8.6-10.3) 06/30/24 16:33 Total Bilirubin 0.7 mg/dl (0.2-1.0) 06/30/24 16:33 AST 24 U/L (13-39) 06/30/24 16:33 ALT 49 U/L (7-52) 06/30/24 16:33 Alkaline Phosphatase 96 U/L (34-104) 06/30/24 16:33 Total Protein 7.4 gm/dl (6.0-8.3) 06/30/24 16:33 Albumin 4.2 gm/dl (3.4-5.0) 06/30/24 16:33 Globulin 3.2 gm/dl (2.5-4.0) 06/30/24 16:33 Albumin/Globulin Ratio 1.3 (0.9-2) 06/30/24 16:33 Urine Color Yellow 06/30/24 18:34 Urine Appearance Clear (Clear) 06/30/24 18:34 Urine pH 6.5 (4.5-7.5) 06/30/24 18:34 Ur Specific [place] > 1.045 (1.000-1.030) H 06/30/24 18:34 Urine Protein Trace (Negative) H 06/30/24 18:34 Urine Glucose (UA) Negative (Negative) 06/30/24 18:34 Urine Ketones Negative (Negative) 06/30/24 18:34 Urine Blood 2+ (Negative) H 06/30/24 18:34 Urine Nitrite Negative (Negative) 06/30/24 18:34 Urine Bilirubin Negative (Negative) 06/30/24 18:34 Urine Urobilinogen Negative (Negative) 06/30/24 18:34 Ur Leukocyte Esterase Trace (Negative) H 06/30/24 18:34 Urine WBC (Auto) 6-10 /hpf (0-5) H 06/30/24 18:34 Urine RBC (Auto) 11-20 /hpf (0-2) H 06/30/24 18:34 U Hyaline Cast (Auto) 6-10 /lpf (0-2) H 06/30/24 18:34 U Epithel Cells (Auto) 0-2 /hpf (0-2) 06/30/24 18:34 Urine Bacteria (Auto) None Seen (None Seen) 06/30/24 18:34 Urine Mucus Present (None Prsent) A 06/30/24 18:34 Impressions Abdomen/Pelvis CT 06/30/24 17:09 INDICATION: Difficulty urinating. Recent prostate biopsy. Low-grade fever. COMPARISON: No relevant priors available. TECHNIQUE: Axial CT images of the abdomen and pelvis were obtained following IV contrast administration. Coronal and sagittal reformations were reviewed. FINDINGS: Pulmonary nodules measuring up to 1.3 cm. The gallbladder is surgically absent. The liver, spleen, pancreas and adrenal glands appear unremarkable. No hydronephrosis. A few subcentimeter bilateral renal cysts noted. Moderate-sized hiatal hernia. No evidence of bowel obstruction/colitis/appendicitis. No free air. Inflammation surrounding the prostate gland. Multiloculated fluid collection extending from the posterior/left lateral aspect of the prostate gland measuring approximately 4.4 x 3.5 x 3.2 cm. Small fat-containing bilateral inguinal hernias. Mild urinary bladder wall thickening. Atheromatous plaquing of the abdominal aorta without dissection or aneurysm. Degenerative changes in the hips and spine. No acute osseous abnormality evident. IMPRESSION: 1. Inflammation surrounding the prostate gland. Multiloculated fluid collection extending from the posterior/left lateral aspect of the prostate gland measuring approximately 4.4 x 3.5 x 3.2 cm. Findings concerning for abscess. Follow-up as clinically relevant. 2. Mild urinary bladder wall thickening. 3. Pulmonary nodules measuring up to 1.3 cm concerning for metastatic disease. Follow-up is anticipated. 4. Small bilateral renal cysts. 5. Fat-containing bilateral inguinal hernias. 6. Moderate size hiatal hernia. ACT 112: Positive. There are findings on this exam that require communication between the performing entity and the patient following Patient Test Result Information Act ([place] ACT 112) guidelines. Electronically signed by Salvador Scott 06-30-2024 5:52 PM PG Care Time/CCT Total # of Minutes Spent Total Time Spent with Patient: Total time spent is greater than 50% in coordination of care (as documented) at patient's floor/unit and/or counseling patient: Coding Level of Care Code 79412 INT INP/OBS CARE 3/75MIN Diagnoses Prostate abscess N41.2 Lung nodules R91.8 CAD, multiple vessel I25.10 BPH (benign prostatic hyperplasia) N40.0 Diabetes E11.9 Hyperlipidemia E78.5 GERD (gastroesophageal reflux disease) K21.9 Hypothyroidism E03.9
[2024-06-30] MEDS: METOPROLOL SUCC 50MG EXT REL TAB PO STA (20:07)
[2024-06-30] MEDS: ASPIRIN 81 MG ECTAB PO STA (20:07)
[2024-06-30] MEDS: TAMSULOSIN HCL 0.4 MG CAP PO ONE (20:07)
[2024-06-30] MEDS: ROSUVASTATIN CALCIUM 20 MG TAB PO STA (20:08)
[2024-06-30] MEDS: ACETAMINOPHEN 500 MG TAB PO STA (22:54)
[2024-06-30] MEDS: DOCUSATE SODIUM 100 MG CAP PO ONE (22:55)
[2024-07-01] MEDS ORDERED: DEXTROSE 50% 50 ML SYRINGE IV PRN (00:26)
[2024-07-01] MEDS ORDERED: GLUCOSE 40% GEL 15 GM TUBE PO PRN (00:26)
[2024-07-01] MEDS ORDERED: GLUCAGON FOR INJ 1 MG VIAL SQ PRN (00:26)
[2024-07-01] MEDS ORDERED: CARBOHYDRATES FOR HYPOGLYCEMIA PO PRN (00:26)
[2024-07-01] MEDS ORDERED: GLUCOSE 10 TAB/TUBE PO PRN (00:26)
[2024-07-01] MEDS: INSULIN ASPART PER UNIT CHARGE SC SCH (00:56)
[2024-07-01] MEDS: PIPERACILLIN/TAZOBACTAM 4.5 GM/100 ML BAG IV SCH (01:06)
--- NOTE | 2024-07-01 07:42 | Medical Student Progress Note ---
Date of Service July 01, 2024 Assessment & Plan (1) Prostate abscess: (2) Lung nodules: (3) CAD, multiple vessel: (4) BPH (benign prostatic hyperplasia): (5) Diabetes: (6) Hyperlipidemia: (7) GERD (gastroesophageal reflux disease): (8) Hypothyroidism: Plan 78yo male with history of CAD s/p CABG, HLP, DM, newly diagnosed prostate cancer presenting with ongoing dysuria/increased urinary frequency and urgency as well as difficulty passing BM ongoing since having prostate biopsy on 06/23/24. CT of the abdomen as above with inflammation surrounding the prostate gland with multiloculated fluid collection extending from the posterior/left lateral aspect of the prostate gland - concerning for abscess. Also noted to have multiple pulmonary nodules concerning for metastatic disease Seen by urology today: Opting against transurethral resection due to difficult location of the abscess. Recommended continuing zosyn, supportive care for now, blood + urine cultures. Today Niranjan desires not to pursue pulmonary nodule workup, would rather focus on urinary/rectal symptoms. #Prostate abscess CT findings as above. Patient is afebrile, HD stable. Does endorse low-grade fevers ongoing since the biopsy on 06/23. Leukocytosis with WBC=16.29 -Admit to medical -Continue Zosyn 4.5gm IV q 8 -Blood + urine cultures ordered -Urology consulted, following -Bladder scan with straight cath as needed -Patient requesting bowel regimen - Increase Miralax to 34 g PO daily, continue Senna 8.6 mg po qAM and Colace PRN #Lung nodules Incidental finding noted on lung bases on CT of the abdomen, concerning for metastatic disease. Patient with minimal tobacco history (pipe for a short time in college). Does endorse some abdominal pain and change in bowel habits for the last several months. Uncertain when last colonoscopy was. Patient was reluctant to have additional workup of nodules at this time, thinks that they may be residual from his CABG surgery which is unfortunately unlikely. Review of prior records from [facility] with no dedicated chest CT performed for comparison. Prior CT of the abdomen performed at [facility] on 01/29/23 with no nodules. -Chest CT canceled per patient request, will not work up at this time #CAD s/p CABG x 3V with subsequent stenting. Patient denies chest pain -Continue ASA 81mg po daily -Continue Plavix 75mg po daily -Continue Metoprolol 50mg po qPM -Continue Crestor 20mg po qPM #BPH -Continue Flomax 0.4mg po BID -Bladder scan and straight cath as needed #Diabetes Overall well controlled. Patient on Ozempic. Last XglG0X=0.6 on 03/03/24 -ISS, goal blood sugar 110 - 140 #Hyperlipidema Chronic -Continue Crestor #GERD Chronic -Protonix 40mg po daily while inpatient #Hypothyroidism Chronic. Last TSH=2.801 on 03/03/24 -Continue Synthroid F/E/N - Saline lock. Encourage PO intake. Electrolytes WNL. CC diet as tolerated Ppx - SCDs Code - DNR/DNI per discussion with patient Dispo - Admit to medical Admission and Anticipated Discharge Date Admission Date: June 30, 2024 Supervising Attestation ATTESTATION I also saw the patient and completed a clinical history and exam. I agree with the impression and plan in the medical student and resident documentation, and as summarized below. This morning patient feels OK overall. He concern is with constipation. Denies fevers/chills. No pain at present. EXAM 114/56, 70, 18, 36.6, 96% room air Alert and oriented. NAD CV regular Respirations non labored DATA Labs WBC improved at 11.33 HgB 13.1 Creatinine improved at 1.[address] scan upon admission reviewed - prostate findings as noted; pulmonary nodules suspicious for metastatic disease Micro Blood cultures collected today Urine cultures collected today (both after initiation of antibiotics) IMPRESSION & PLAN Prostate abscess versus hematoma Prostate CA DEMETRICE, resolved Appreciate urology consultation Continue antibiotics; cultures drawn today but utility may be limited given timing. Clinically improved, and leukocytosis trending down Bowel regimen as noted Additional per resident documentation Subjective Niranjan is feeling ok overall. Biggest concern is rectal pain and constipation. He has been managing at home with milk of magnesia and had diarrhea until he recently cut back due to uncontrolled BM's. He is concerned about his rectal pain being attributed to metastasis of the prostate cancer and was calling [facility] for a colorectal surgery consult during the interview. Niranjan is understandably frustrated with his prostate cancer diagnosis and is anxious regarding his PET scan scheduling (scheduled in July, with potential to move it up to this ). He is not concerned about the incidental pulmonary nodules at this time - attributes them to complications of his open heart surgery last year. Requested the follow-up chest CT be canceled. No other concerns at this time Physical Exam Constitutional: In no acute distress. Vitals as above Eyes: Conjunctivae clear, sclera non-icteric ENMT: Oral mucosa moist and pink Respiratory: Nonlabored breathing. Lungs clear to auscultation. No wheezing, rales, rhonchi. Cardiovascular: Regular rate and rhythm, no murmurs, rubs, gallops Gastrointestinal (Abdomen): Normoactive bowel sounds. Nondistended, nontender Skin: Warm and dry Psychiatric: Frustrated mood, mood/affect congruence Results & Data Vital Signs (Past 12 Hours) Vital Signs Temp Pulse Pulse Resp BP Pulse Ox O2 Del Method 06/30/24 21:50 36.7 C 82 17 111/58 L 96 Room Air 06/30/24 21:34 86 20 104/64 96 Room Air 06/30/24 20:50 80 06/30/24 20:46 86 18 145/64 H 100 Room Air Resident Activity Tracking Resident Involvement: Resident Care Provided Care Provided: Adult [facility] Medicine Resident Supervision Co-Signing Physician Notes Resident Attestation I was personally present during medical student and patient encounter and independently interviewed and examined the patient and verified the blake history and physical, reviewed labs and image studies, discussed the case with Jorge DAI), and agree with the above mentioned findings and care plan.
[2024-07-01 07:52] LABS: Hematocrit (blood only) 39.9 % (42.0-52.0); Hemoglobin 13.1 g/dl (14.0-18.0); Mean Corpuscular Hemoglobin 26.3 pg (25.0-34.0); Mean Corpuscular Hgb Conc 32.8 g/dL (32.0-36.0); Mean Corpuscular Volume 80.1 fL (80.0-100.0); Mean Platelet Volume 10.3 fL (9.4-12.4); Platelet Count 253 K/uL (130-400); RDW Standard Deviation 49.9 fL (36.4-46.3); Red Blood Count 4.98 M/uL (4.70-6.10); White Blood Count 11.33 K/ul (4.8-10.8)
--- NOTE | 2024-07-01 08:04 | Urology Consultation ---
<Statement entered by Fidel Peterson MD - 07/01/24 12:51> I had a long discussion with Mr. Rdz at the bedside. Clinically he is feeling better having and some hydration and IV antibiotics. He has not felt any fevers/chills. WBC and creatinine both have improved since arrival. Blood and urine cultures are pending. We reviewed the fluid collection adjacent to the left side of the prostate or possibly involving the prostate. This is potentially an abscess, however would be difficult to address with transurethral unroofing. I discussed his case with interventional radiology who thought it would be challenging to address percutaneously. Although it may be amenable to transrectal drainage, this is not a procedure that they typically perform. For now, we will plan to continue with antibiotics, likely for a protracted course. It would potentially be worth reimaging his pelvis in 2-3 days to evaluate for any evolution of the fluid collection. We also discussed his biopsy results, further staging with PSMA PET scan. They are working to get this done as soon as possible. He is also scheduled for second opinion with [facility]. Fidel Peterson MD. Date of Consultation July 01, 2024 Assessment & Plan (1) Prostate cancer: (2) Prostate abscess: 78-year-old male who follows with urology for elevated PSA and underwent MRI fusion biopsy on 06/23/2024 admitted for leukocytosis and suspected prostate abscess. Patient afebrile, hemodynamically stable Labs todayWBC downtrending (11.33), hemoglobin 13.1, creatinine 1.17 Recommend collect urine and blood cultures Continue broad-spectrum antibiotics and follow cultures CT abdomen pelvis demonstrates possible prostate abscess versus infected hematoma Location of this fluid collection is challenging for consideration of transurethral resection, IR drainage For now, continue antibiotics and supportive care He is voiding spontaneously, monitor voiding and bladder scan as needed Continue bowel regimen Case discussed with Dr. Peterson, see attending note for further details on plan of care History of Present Illness Reason for Consultation: Prostate abscess Requesting Physician: Dr. Kiley العراقي Attending Physician: Brain Moreno DO History of Present Illness This is a 78-year-old male who follows with urology for elevated PSA and underwent MRI fusion transrectal ultrasound-guided biopsy of prostate on 06/23/2024. Following biopsy, he was experiencing low-grade fevers, worsening urinary symptoms, nausea and vomiting after prostate biopsy and he was referred to the emergency department by Dr. Peterson for further evaluation and management. On arrival to ED, he was afebrile, tachycardic, normotensive. Lab work showed WBC 16.79, hemoglobin 15.0, creatinine 1.5. Urinalysis showed 2+ blood, trace LE, 6-10 WBC, 11-20 RBC, 0-2 epithelial cells and negative for bacteria. Workup included CT abdomen pelvis with IV contrast which demonstrated inflammation surrounding the prostate gland, multiloculated fluid collection extending from the posterior/left lateral aspect of the prostate gland measuring approximately 4.4 x 3.5 x 3.2 cm. Findings concerning for abscess versus infected hematoma. ED course: IV fluids, Zosyn. He was admitted to the hospital medicine service for management. Urology is consulted for prostate abscess. Labs today reviewedcreatinine 1.17, WBC 1.33, hemoglobin 13.1. Patient seen and examined at bedside this morning. He continues to have rectal discomfort. No fever or chills. No nausea or vomiting. He is voiding spontaneously. Notes small voids. Reports bowel movement yesterday, but continues to have difficulty with bowel movements and firm stool. Allergies Allergy/AdvReac Type Severity Reaction Status Date / Time benzoyl peroxide Allergy Intermediate Rash Verified 04/18/24 07:57 adhesive tape AdvReac Mild Rash Verified 04/18/24 07:57 Home Medications Medication Instructions Recorded Confirmed Type docusate sodium 100 mg capsule 100 mg PO DAILY PRN Constipation 09/05/22 06/30/24 History (Colace) ondansetron HCl 4 mg tablet 4 mg PO Q8H PRN Nausea And Vomiting 09/05/22 06/30/24 History acetaminophen 500 mg tablet 1,000 mg PO Q4-5H PRN Pain 01/29/23 06/30/24 History (Tylenol Extra Strength) aspirin 81 mg tablet,delayed 81 mg PO QPM 01/29/23 06/30/24 History release cholecalciferol (vitamin D3) 125 125 mcg PO QAM 01/29/23 06/30/24 History mcg (5,000 unit) tablet (Vitamin D3) coenzyme Q10 100 mg capsule 100 mg PO QAM 01/29/23 06/30/24 History (CoQ-10) rosuvastatin 20 mg tablet 20 mg PO QPM #90 tabs 05/15/23 06/30/24 Rx semaglutide 0.25 mg or 0.5 mg (2 0.5 mg (0.736 mL) subcut WK #3 mL 07/16/23 06/30/24 Rx mg/3 mL) subcutaneous pen injector (OzempXIFIN) irbesartan 75 mg tablet 75 mg PO QAM #90 tabs 08/27/23 06/30/24 Rx omeprazole 20 mg capsule,delayed 20 mg PO DAILY #90 caps 08/27/23 06/30/24 Rx release Lactobacillus rhamnosus-Bifidobac. 1 cap PO QAM 03/03/24 06/30/24 History animalis 3 billion cell capsule ([employer]) metoprolol succinate 50 mg 50 mg PO QPM #90 tabs 03/18/24 06/30/24 Rx tablet,extended release 24 hr clopidogrel 75 mg tablet 75 mg PO DAILY #90 tabs 05/08/24 06/30/24 Rx tadalafil 5 mg tablet 5 mg PO DAILY #90 tabs 06/03/24 06/30/24 Rx hydrochlorothiazide 12.5 mg tablet 12.5 mg PO DAILY #90 tabs 06/19/24 06/30/24 Rx ferrous sulfate 325 mg (65 mg 325 mg PO QAM 06/30/24 06/30/24 History iron) tablet multivitamin 1 tab PO QAM 06/30/24 06/30/24 History tamsulosin 0.4 mg capsule 0.4 mg PO BID 06/30/24 06/30/24 History Patient History Medical History Umbilical hernia Encounter for pre-operative examination Degenerative disc disease L4-L5 Diabetes mellitus, type 2 Surgical History History of coronary artery bypass graft 08/17/2022 H/O ventral hernia repair (12/18/18) Diagnostic Laprascopy and Open Ventral Hernia Repair Dr. Cowan 12-18-18 History of ventral hernia repair 10/09/18 [facility] Hx of bilateral cataract extraction History of cardiac cath 2/2 abnormal stress test ~[address] [facility]. 1 stent to proximal RCA. History of open reduction and internal fixation (ORIF) procedure RIGHT ANKLE History of herniorrhaphy RIGHT INGUINAL History of cholecystectomy LAP History of colonoscopy Family History Grandfather Stomach cancer Denies family history of Ovarian cancer Prostate cancer Myocardial infarction Breast cancer Lung cancer Colorectal cancer Social History Smoking Status: Never smoker Second Hand Exposure: No; Do You Dip or Chew Tobacco: No; Hx Alcohol Use: No Hx Substance Use: No Preferred Language: Bengali Communication Ability: Effective Visual Impairment: Limited Hearing Ability: Use of Hearing Aid Advertising Agent Required: No Beliefs That Will Affect Care: None marital status: / Current Living Situation: Personal Care Facility Current Living Situation Comment: [facility] current occupational status: retired 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 How many Children do You have: 0 Other Information That Helps Us Care for You: No Feels Safe at Home: Yes Safety Concerns: Feels Safe At This Time Childhood Exposure to Second-Hand Smoke: No Diet: low carbohydrate caffeine: Yes Dental Care, Regularly: Yes Physical Activity Frequency: 3-4 Times per Week Seatbelt Use: always Sunscreen Use: Yes Assistive Devices: Glasses and Hearing Aid - Bilateral Review of Systems Review of Systems: All systems reviewed & are unremarkable except as noted in HPI & below Physical Exam Constitutional: well developed and well nourished; no acute distress Respiratory: normal respiratory effort; no respiratory distress and no labored breathing Gastrointestinal (Abdomen): Inspection/Auscultation: abdomen normal to inspection Musculoskeletal: Head/Neck/Chest: normocephalic Neurologic: moves all extremities and awake Psychiatric: Orientation: alert and oriented x 3 Results & Data Vital Signs (Past 12 Hours) Vital Signs Temp Pulse Pulse Resp BP Pulse Ox O2 Del Method 06/30/24 21:50 36.7 C 82 17 111/58 L 96 Room Air 06/30/24 21:34 86 20 104/64 96 Room Air 06/30/24 20:50 80 06/30/24 20:46 86 18 145/64 H 100 Room Air PG Care Time/CCT Total # of Minutes Spent Total Time Spent with Patient: Total time spent is greater than 50% in coordination of care (as documented) at patient's floor/unit and/or counseling patient: Coding Level of Care Code 65753 INT INP/OBS CARE MIN Diagnoses Prostate cancer C61 Prostate abscess N41.2
[2024-07-01 08:07] LABS: BUN Creatinine Ratio 12.8 (10-20); Calcium 8.6 mg/dl (8.6-10.3); Creatinine Clr Calc Pharmacy 51.2 ml/min; Potassium 3.7 mmol/L (3.5-5.1)
[2024-07-01 08:28] VITALS: RESP 18
[2024-07-01] MEDS: SENNA 8.6 MG TAB PO SCH (08:31)
[2024-07-01] MEDS: CLOPIDOGREL BISULFATE 75 MG TAB PO SCH (08:31)
[2024-07-01] MEDS: DOCUSATE SODIUM 100 MG CAP PO PRN (08:31)
[2024-07-01] MEDS: PANTOprazole 40 MG TAB PO SCH (08:31)
[2024-07-01] MEDS: TAMSULOSIN HCL 0.4 MG CAP PO SCH (08:31)
[2024-07-01] MEDS: ACETAMINOPHEN 325 MG TAB PO PRN (08:31)
[2024-07-01] MEDS: POLYETHYLENE (MIRALAX) 17 GM PACK PO PRN (08:32)
[2024-07-01] MEDS: ONDANSETRON INJ 2 MG/ML 2 ML VIAL IV PRN (14:32)
[2024-07-01] MEDS: ASPIRIN 81 MG ECTAB PO SCH (21:18)
[2024-07-01] MEDS: ROSUVASTATIN CALCIUM 20 MG TAB PO SCH (21:18)
[2024-07-01] MEDS: METOPROLOL SUCC 50MG EXT REL TAB PO SCH (21:18)
--- NOTE | 2024-07-02 07:31 | Medical Student Progress Note ---
Date of Service July 02, 2024 Assessment & Plan (1) Prostate abscess: (2) Lung nodules: (3) CAD, multiple vessel: (4) BPH (benign prostatic hyperplasia): (5) Diabetes: (6) Hyperlipidemia: (7) GERD (gastroesophageal reflux disease): (8) Hypothyroidism: Plan 78yo male with history of CAD s/p CABG, HLP, DM, newly diagnosed prostate cancer presenting with ongoing dysuria/increased urinary frequency and urgency as well as difficulty passing BM ongoing since having prostate biopsy on 06/23/24. CT of the abdomen as above with inflammation surrounding the prostate gland with multiloculated fluid collection extending from the posterior/left lateral aspect of the prostate gland - concerning for abscess. Also noted to have multiple pulmonary nodules concerning for metastatic disease Seen by urology 07/01: Opted against transurethral resection due to difficult location of the abscess. Recommended continuing zosyn, supportive care for now, blood + urine cultures. Niranjan desires not to pursue pulmonary nodule workup, would rather focus on urinary/rectal symptoms. Today Niranjan is feeling better regarding urinary symptoms, still concerned with rectal discomfort. Remains afebrile and without other symptoms. Blood/urine cultures are pending. WBC increased 15.8 from 11.3. Will wait for cultures to optimize antibiotics. Urology will reassess if WBCs continue to uptrend. #Prostate abscess CT findings as above. Patient is afebrile, HD stable. Does endorse low-grade fevers ongoing since the biopsy on 06/23. Leukocytosis with WBC=16.29 -Admit to medical -Continue Zosyn 4.5gm IV q 8 -Blood + urine cultures pending -CBC w/differential, CMP ordered for 07/03 AM -Urology consulted, following -Bladder scan with straight cath as needed -Patient requesting bowel regimen - Decrease Miralax to 14 g PO, Senna 8.6 mg po qAM and Colace PRN #Lung nodules Incidental finding noted on lung bases on CT of the abdomen, concerning for metastatic disease. Patient with minimal tobacco history (pipe for a short time in college). Does endorse some abdominal pain and change in bowel habits for the last several months. Uncertain when last colonoscopy was. Patient was reluctant to have additional workup of nodules at this time, thinks that they may be residual from his CABG surgery which is unfortunately unlikely. Review of prior records from [facility] with no dedicated chest CT performed for comparison. Prior CT of the abdomen performed at [facility] on 01/29/23 with no nodules. -Chest CT canceled per patient request, will not work up at this time #CAD s/p CABG x 3V with subsequent stenting. Patient denies chest pain -Continue ASA 81mg po daily -Continue Plavix 75mg po daily -Continue Metoprolol 50mg po qPM -Continue Crestor 20mg po qPM #BPH -Continue Flomax 0.4mg po BID -Bladder scan and straight cath as needed #Diabetes Overall well controlled. Patient on Ozempic. Last ZaeU2C=4.6 on 03/03/24 -ISS, goal blood sugar 110 - 140 #Hyperlipidema Chronic -Continue Crestor #GERD Chronic -Protonix 40mg po daily while inpatient #Hypothyroidism Chronic. Last TSH=2.801 on 03/03/24 -Continue Synthroid F/E/N - Saline lock. Encourage PO intake. Electrolytes WNL. CC diet as tolerated Ppx - SCDs Code - DNR/DNI per discussion with patient Dispo - Admit to medical Admission and Anticipated Discharge Date Admission Date: June 30, 2024 Supervising Attestation ATTESTATION I also saw the patient and completed a clinical history and exam. I agree with the impression and plan in the medical student and resident documentation, and as summarized below. Feeling well. Bowels improved - actually had some incontinence so holding off on Miralax. Denies fevers/chills. No pain at present. EXAM Afebrile and hemodynamically stable. Alert and oriented. NAD CV regular Respirations non labored DATA Labs WBC increased to 15.[address] scan upon admission reviewed - prostate findings as noted; pulmonary nodules suspicious for metastatic disease Micro Blood cultures negative at 24 hours. Urine culture no growth. (both after initiation of antibiotics) IMPRESSION & PLAN Prostate abscess versus hematoma Prostate CA DEMETRICE, resolved Appreciate urology consultation Continue antibiotics; cultures of limited utility given timing. Clinically improved, although WBCs back up today. Repeat labs in AM; if WBC still trending up or other symptoms, re-image If clinically still looking good and WBCs improved, transition to PO antibiotics Additional per resident documentation Subjective No acute overnight events. Interview conducted while walking the floor. Niranjan is feeling better today regarding urinary symptoms, feels the inflammation is reducing. Still complains of rectal discomfort but says that bowel regimen is working. Understands that medical treatment of the prostate abscess will take time. Continues to express concerns regarding possibility of colorectal cancer as his father had prostate cancer with a poor hospital course following the diagnosis, in addition to caring for his who from cancer. He is willing to accept the potential prognosis of his cancer but does not want to be in pain. Agreeable to continuing current course of treatment for prostate abscess. Physical Exam Constitutional: Well-appearing, in no acute distress. Vitals as above Eyes: Conjunctivae clear, sclera nonicteric. EOMI Respiratory: Nonlabored breathing. Lungs clear to auscultation, no wheezing, rales, rhonchi Cardiovascular: Regular rate and rhythm, no rubs, gallops Gastrointestinal (Abdomen): Normoactive bowel sounds. Nondistended, nontender Psychiatric: Euthymic mood, mood/affect congruence Results & Data Vital Signs (Past 12 Hours) Vital Signs Temp Pulse Resp BP Pulse Ox O2 Del Method 07/01/24 21:19 36.6 C 67 18 114/66 96 Room Air Resident Activity Tracking Resident Involvement: Resident Care Provided Care Provided: Adult Hospital Medicine Resident Supervision Co-Signing Physician Notes Resident Attestation I was personally present during medical student and patient encounter and independently interviewed and examined the patient and verified the blake history and physical, reviewed labs and image studies, discussed the case with Jorge DAI), and agree with the above mentioned findings and care plan.
[2024-07-02] MEDS: POLYETHYLENE (MIRALAX) 17 GM PACK PO SCH (09:05)
--- NOTE | 2024-07-02 11:12 | Urology Progress Note ---
Date of Service July 02, 2024 Assessment & Plan (1) Prostate cancer: (2) Prostate abscess: Plan: Follow-up of prostate abscess Patient afebrile, hemodynamically stable Subjectively feeling better No new labs at time of visit Urine and blood cultures pending Continue broad-spectrum antibiotics and follow cultures No intervention at this time Plan to continue with antibiotics for extended course Voiding spontaneously, monitor voiding and bladder scan as needed Consider reimaging his pelvis in a few days to evaluate for evolution of fluid collection will follow Admission and Anticipated Discharge Date Admission Date: June 30, 2024 Subjective Patient seen and examined at bedside this morning. He is awake and sitting up in bedside chair. Reports generally feeling better today. Voiding spontaneously. Reports loose bowel movement since yesterday. No fever or chills. Review of Systems Constitutional: as per Subjective / HPI Gastrointestinal: as per Subjective / HPI Genitourinary: + as per Subjective / HPI Physical Exam Constitutional: well developed and well nourished; no acute distress Respiratory: normal respiratory effort; no respiratory distress and no labored breathing Gastrointestinal (Abdomen): Inspection/Auscultation: abdomen normal to inspection Musculoskeletal: Head/Neck/Chest: normocephalic Neurologic: moves all extremities and awake Psychiatric: Orientation: alert and oriented x 3 Results & Data Vital Signs (Past 12 Hours) Vital Signs Temp Pulse Resp BP Pulse Ox O2 Del Method 07/02/24 09:20 36.6 C 86 18 125/70 98 Room Air PG Care Time/CCT Total # of Minutes Spent Total Time Spent with Patient: Total time spent is greater than 50% in coordination of care (as documented) at patient's floor/unit and/or counseling patient: Coding Level of Care Code 56967 SUB INP/OBS CARE 05/10MIN Diagnoses Prostate cancer C61 Prostate abscess N41.2
[2024-07-02 11:42] LABS: Basophils # (auto) 0.07 K/uL (0.00-0.20); Basophils % (auto) 0.4 %; Eosinophils # (auto) 0.31 K/uL (0.00-0.50); Hematocrit (blood only) 41.3 % (42.0-52.0); Hemoglobin 13.3 g/dl (14.0-18.0); Immature Granulocytes % (auto) 0.6 %; Lymphocytes % (auto) 10.8 %; Mean Corpuscular Hgb Conc 32.2 g/dL (32.0-36.0); Mean Corpuscular Volume 80.8 fL (80.0-100.0); Mean Platelet Volume 9.5 fL (9.4-12.4); Monocytes # (auto) 1.27 K/uL (0.11-0.59); Neutrophils # (auto) 12.36 K/uL (1.40-6.50); Neutrophils % (auto) 78.2 %; Platelet Count 285 K/uL (130-400); RDW Coefficient of Variation 16.9 % (11.5-14.5); RDW Standard Deviation 49.9 fL (36.4-46.3); Red Blood Count 5.11 M/uL (4.70-6.10); White Blood Count 15.81 K/ul (4.8-10.8)
[2024-07-02 12:02] LABS: Albumin Globulin Ratio 1.2 (0.9-2); Albumin Level 3.6 gm/dl (3.4-5.0); BUN Creatinine Ratio 10.9 (10-20); Bilirubin,Total 0.6 mg/dl (0.2-1.0); Creatinine Clr Calc Pharmacy 46.4 ml/min; Potassium 3.5 mmol/L (3.5-5.1); Total Protein 6.6 gm/dl (6.0-8.3)
[2024-07-03 07:08] VITALS: BP 135/75; PULSE 65; TEMP 98.4; O2SAT 96
--- NOTE | 2024-07-03 07:15 | Medical Student Progress Note ---
Date of Service July 03, 2024 Assessment & Plan (1) Prostate abscess: (2) Lung nodules: (3) CAD, multiple vessel: (4) BPH (benign prostatic hyperplasia): (5) Diabetes: (6) Hyperlipidemia: (7) GERD (gastroesophageal reflux disease): (8) Hypothyroidism: Plan 78yo male with history of CAD s/p CABG, HLP, DM, newly diagnosed prostate cancer presenting with ongoing dysuria/increased urinary frequency and urgency as well as difficulty passing BM ongoing since having prostate biopsy on 06/23/24. CT of the abdomen as above with inflammation surrounding the prostate gland with multiloculated fluid collection extending from the posterior/left lateral aspect of the prostate gland - concerning for abscess. Also noted to have multiple pulmonary nodules concerning for metastatic disease Seen by urology 07/01: Opted against transurethral resection due to difficult location of the abscess. Recommended continuing zosyn, supportive care for now, blood + urine cultures. Niranjan desires not to pursue pulmonary nodule workup, would rather focus on urinary/rectal symptoms. Today Niranjan continues feeling better regarding urinary symptoms, still concerned with rectal discomfort. Remains afebrile and without other symptoms. Negative urine culture, 24-hour blood cultures negative (taken after initiating zosyn). WBC decreased 13.8 from 15.8. Will wait for cultures to optimize antibiotics. Urology will reassess if WBCs continue to uptrend. #Prostate abscess CT findings as above. On admission, patient is afebrile, HD stable. Does endorse low-grade fevers ongoing since the biopsy on 06/23. Leukocytosis with WBC=16.29 -Admit to medical -Continue Zosyn 4.5gm IV q 8 -24h blood + urine cultures negative, rest pending -Urology consulted, following -Bladder scan with straight cath as needed -Patient requesting bowel regimen - Miralax 14 g PO, Senna 8.6 mg po qAM and Colace PRN #Lung nodules Incidental finding noted on lung bases on CT of the abdomen, concerning for metastatic disease. Patient with minimal tobacco history (pipe for a short time in college). Does endorse some abdominal pain and change in bowel habits for the last several months. Uncertain when last colonoscopy was. Patient was reluctant to have additional workup of nodules at this time, thinks that they may be residual from his CABG surgery which is unfortunately unlikely. Review of prior records from [facility] with no dedicated chest CT performed for comparison. Prior CT of the abdomen performed at [facility] on 01/29/23 with no nodules. -Chest CT canceled per patient request, will not work up at this time #CAD s/p CABG x 3V with subsequent stenting. Patient denies chest pain -Continue ASA 81mg po daily -Continue Plavix 75mg po daily -Continue Metoprolol 50mg po qPM -Continue Crestor 20mg po qPM #BPH -Continue Flomax 0.4mg po BID -Bladder scan and straight cath as needed #Diabetes Overall well controlled. Patient on Ozempic. Last YmcU7K=7.6 on 03/03/24 -ISS, goal blood sugar 110 - 140 #Hyperlipidema Chronic -Continue Crestor #GERD Chronic -Protonix 40mg po daily while inpatient #Hypothyroidism Chronic. Last TSH=2.801 on 03/03/24 -Continue Synthroid F/E/N - Saline lock. Encourage PO intake. Electrolytes WNL. CC diet as tolerated Ppx - SCDs Code - DNR/DNI per discussion with patient Dispo - Admit to medical Admission and Anticipated Discharge Date Admission Date: June 30, 2024 Subjective No acute overnight events. Niranjan is feeling well today, no concerns besides persistent rectal pain. Is agreeable to transitioning to PO antibiotics if WBC count downtrends. No recent diarrhea or constipation. Physical Exam Constitutional: Well-appearing, in no acute distress. Vitals as above Eyes: Conjunctivae clear, sclera nonicteric. EOMI Respiratory: Nonlabored breaths. Lungs clear to auscultation, no wheezing, rales, rhonchi Cardiovascular: Regular rate and rhythm. Mild systolic murmur, no rubs or gallops Gastrointestinal (Abdomen): Normoactive bowel sounds. Nondistended, nontender. Psychiatric: Euthymic mood, mood/affect congruence Results & Data Vital Signs (Past 12 Hours) Vital Signs Temp Pulse Resp BP Pulse Ox O2 Del Method 07/03/24 07:00 36.9 C 65 18 135/75 96 Room Air 07/02/24 21:49 36.8 C 70 18 142/71 H 98 Room Air
[2024-07-03 08:35] LABS: Basophils # (auto) 0.07 K/uL (0.00-0.20); Basophils % (auto) 0.5 %; Eosinophils # (auto) 0.28 K/uL (0.00-0.50); Hematocrit (blood only) 40.2 % (42.0-52.0); Hemoglobin 13.2 g/dl (14.0-18.0); Immature Granulocytes # (auto) 0.11 K/uL (0.01-0.20); Immature Granulocytes % (auto) 0.8 %; Lymphocytes # (auto) 1.73 K/uL (1.20-3.40); Lymphocytes % (auto) 12.5 %; Mean Corpuscular Hemoglobin 26.3 pg (25.0-34.0); Mean Corpuscular Hgb Conc 32.8 g/dL (32.0-36.0); Mean Corpuscular Volume 80.1 fL (80.0-100.0); Mean Platelet Volume 9.9 fL (9.4-12.4); Monocytes # (auto) 1.04 K/uL (0.11-0.59); Monocytes % (auto) 7.5 %; Neutrophils # (auto) 10.66 K/uL (1.40-6.50); Neutrophils % (auto) 76.7 %; Platelet Count 305 K/uL (130-400); RDW Coefficient of Variation 16.8 % (11.5-14.5); RDW Standard Deviation 49.1 fL (36.4-46.3); Red Blood Count 5.02 M/uL (4.70-6.10); White Blood Count 13.89 K/ul (4.8-10.8)
[2024-07-03 09:06] LABS: Albumin Globulin Ratio 1.3 (0.9-2); Albumin Level 3.7 gm/dl (3.4-5.0); BUN Creatinine Ratio 9.9 (10-20); Bilirubin,Total 0.6 mg/dl (0.2-1.0); Calcium 8.9 mg/dl (8.6-10.3); Creatinine Clr Calc Pharmacy 49.5 ml/min; Globulin 2.8 gm/dl (2.5-4.0); Potassium 4.1 mmol/L (3.5-5.1); Total Protein 6.5 gm/dl (6.0-8.3)
[2024-07-03] MEDS: POLYETHYLENE (MIRALAX) 17 GM PACK PO SCH (09:19)
--- NOTE | 2024-07-03 10:33 | Urology Progress Note ---
<Statement entered by Fidel Peterson MD - 07/03/24 13:18> Patient is feeling well and labs are improving. At this point I think it be reasonable to get him on oral antibiotics and discharged home. I discussed return precautions with him. We will arrange follow-up as an outpatient for further management of prostate cancer. We will get another view of the pelvic fluid collection at upcoming PET scan. Date of Service July 03, 2024 Assessment & Plan (1) Prostate cancer: (2) Prostate abscess: Plan: Follow-up of prostate abscess Patient afebrile, hemodynamically stable Clinically and subjectively continues to improve Labs reviewedcreatinine 1.21, WBC downtrending today (13.89), hemoglobin 13.2 Urine culture with no growth Blood cultures with no growth x 24 hours No intervention at this time Plan to continue with antibiotics for extended course Voiding spontaneously without difficulty Plan for discharge to home with PO antibiotics when medically stable Patient can proceed with PSMA PET scan next week as planned Will arrange outpatient follow-up with our service Admission and Anticipated Discharge Date Admission Date: June 30, 2024 Subjective Patient seen and examined at bedside this morning. He is awake and standing up in room. Reports he continues to feel better, anxious for discharge. He has been ambulating. Voiding spontaneously. Continues on miralax and reports bowel movements. Denies fever or chills. Review of Systems Constitutional: as per Subjective / HPI Genitourinary: + as per Subjective / HPI Physical Exam Constitutional: well developed and well nourished; no acute distress Respiratory: normal respiratory effort; no respiratory distress and no labored breathing Gastrointestinal (Abdomen): Inspection/Auscultation: abdomen normal to inspection Musculoskeletal: Head/Neck/Chest: normocephalic Neurologic: moves all extremities and awake Psychiatric: Orientation: alert and oriented x 3 Results & Data Vital Signs (Past 12 Hours) Vital Signs Temp Pulse Resp BP Pulse Ox O2 Del Method 07/03/24 07:00 36.9 C 65 18 135/75 96 Room Air PG Care Time/CCT Total # of Minutes Spent Total Time Spent with Patient: Total time spent is greater than 50% in coordination of care (as documented) at patient's floor/unit and/or counseling patient: Coding Level of Care Code 66548 SUB INP/OBS CARE 05/10MIN Diagnoses Prostate cancer C61 Prostate abscess N41.2
--- NOTE | 2024-07-03 16:01 | Med Student Discharge Summary ---
Date of Service July 03, 2024 Admission HPI Per Admitting Provider Jose Manuel Rdz is a 78yo male with history of DM, AF, GERD, HLP and CAD s/p 3v CABG in 2022 with failed graft with subsequent stenting presenting with difficulty urinating and difficulty having a bowel movement. Patient with BPH with LUTS and follows with Urology. He was found to have an elevated PSA 12.057 on 03/03/24. He had an MRI of the prostate performed which revealed several lesions concerning for malignancy. Patient underwent a transrectal ultrasound-guided prostate biopsy performed on 06/24/[address] Peterson - pathology revealed invasive ductal carcinoma, intraductal carcinoma and acinar carcinoma. He reports having a low grade fever ongoing since the biopsy on 06/23. He also reports ongoing cramping in the left rectal area as well as difficulty passing stool which prompted him to come to the ER. Additionally patient reports change of bowel movement ongoing for the last several months - he has been having more loose stools - thought to be secondary to change of diet, increased fiber. He has also had occasional RLQ abdominal discomfort and dark colored stools for the last three months with occasional bloating. He reports stable weight. No sweats. Has had a cough for the last several days, no SOB. ER Course: Zosyn 4.5gm Post-void residual volume NEGATIVE Admission Exam (Per Admitting) Constitutional General: patient resting comfortably, NAD, non-toxic in appearance, AA&O x 4 Skin: warm, dry, intact, no rashes or lesions HEENT: NC/AT, PERRL, EOMI, anicteric sclera, conjunctiva without injection, external ear normal to inspection and nontender, nares patent, moist mucus membranes, dentition intact, no oropharyngeal lesions, neck supple, trachea midline, no LAD, no thyromegaly, no JVD Heart: +S1/S2, regular, no m/r/g Lungs: equal air entry bilaterally, no rales/rhonchi/wheezes Abd: +BS, soft, NT/ND, no masses/organomegaly/ascites Ext: warm, 2+ pulses in UE/LE bilaterally, no clubbing/cyanosis or edema Neuro: nonfocal, patient AA&O x 4, speech intact, no facial droop, moving all extremities on command with equal strength 5/5 Discharge Exam Constitutional Well-appearing, in no acute distress. Vitals as above Eyes Conjunctivae clear, sclera nonicteric. EOMI Respiratory Nonlabored breathing. Clear to auscultation, no wheezing, rales, rhonchi. Cardiovascular Regular rate and rhythm. Soft systolic murmur, no rubs or gallops Gastrointestinal (Abdomen) Normoactive bowel sounds. Nondistended, nontender Skin Warm and dry Psychiatric Euthymic mood, mood/affect congruence Discharge Data Consultations 06/30/24 18:51 ED Decision to Admit Stat 06/30/24 19:57 Consult Urology Routine Hospital Course (1) Prostate abscess: (2) Lung nodules: (3) CAD, multiple vessel: (4) BPH (benign prostatic hyperplasia): (5) Diabetes: (6) Hyperlipidemia: (7) GERD (gastroesophageal reflux disease): (8) Hypothyroidism: Plan 78yo male with history of CAD s/p CABG, HLP, DM, newly diagnosed prostate cancer presenting with ongoing dysuria/increased urinary frequency and urgency as well as difficulty passing BM ongoing since having prostate biopsy on 06/23/24. CT of the abdomen as above with inflammation surrounding the prostate gland with multiloculated fluid collection extending from the posterior/left lateral aspect of the prostate gland - concerning for abscess. Also noted to have multiple pulmonary nodules concerning for metastatic disease. 78yo male with history of CAD s/p CABG, HLP, DM, newly diagnosed prostate cancer presenting with ongoing dysuria/increased urinary frequency and urgency as well as difficulty passing BM ongoing since having prostate biopsy on 06/23/24. CT of the abdomen as above with inflammation surrounding the prostate gland with multiloculated fluid collection extending from the posterior/left lateral aspect of the prostate gland - concerning for abscess. Also noted to have multiple pulmonary nodules concerning for metastatic disease. Niranjan desires not to pursue pulmonary nodule workup, would rather focus on urinary/rectal symptoms. Seen by urology 07/01: Opted against transurethral resection due to difficult location of the abscess. Today Niranjan is feeling better regarding urinary symptoms, still concerned with rectal discomfort. Remains afebrile and without other symptoms. Blood/urine cultures are pending. WBC decreased to 13 from 15 yesterday. Will wait for cultures to optimize antibiotics, but for now will discharge with Bactrim with a 2 week prescription for now with the caveat that it may be extended per urology recommendations as an outpatient given that prostate infections can take a while to treat. Urology will reassess as an outpatient. #Prostate abscess -CT findings as above. Patient is afebrile, HD stable. Does endorse low-grade fevers ongoing since the biopsy on 06/23. Leukocytosis improved. -S/p 2 days of Zosyn; discharge on Bactrim for 14 days (for now) as detailed above -Blood negative for now; U/Cx also negative for now -CBC w/differential, BMP ordered for 07/10/24 to ensure WBC continue downtrend and asses renal function while on Bactrim -Urology f/u as an outpatient -Can continue Miralax as an outpatient, especially since script for Tramadol was given which can precipitate copnstipation #Lung nodules Incidental finding noted on lung bases on CT of the abdomen, concerning for met astatic disease. Patient with minimal tobacco history (pipe for a short time in college). Does endorse some abdominal pain and change in bowel habits for the last several months. Uncertain when last colonoscopy was. Patient was reluctant to have additional workup of nodules at this time, thinks that they may be residual from his CABG surgery which is unfortunately unlikely. Review of prior records from [facility] with no dedicated chest CT performed for comparison. Prior CT of the abdomen performed at [facility] on 01/29/23 with no nodules. -Chest CT canceled per patient request, will not work up at this time; see above #CAD s/p CABG x 3V with subsequent stenting. Patient denies chest pain -Continue ASA 81mg po daily -Continue Plavix 75mg po daily -Continue Metoprolol 50mg po qPM -Continue Crestor 20mg po qPM #BPH -Continue Flomax 0.4mg po BID #Diabetes - Overall well controlled. Patient on Ozempic, can continue. Last [id number]=8.6 on 03/03/24 #Hyperlipidema Chronic -Continue Crestor #GERD Chronic -Protonix 40mg po daily #Hypothyroidism Chronic. Last TSH=2.801 on 03/03/24 -Continue Synthroid Discharge Plan Discharge Items Patient Disposition: Home - Self-Care Reason For Visit: RECTAL PAIN, POSSIBLE ABSCESS Discharge Diagnosis: Prostate abscess versus infected hematoma Activity: Per Instructions section Non-emergency contact: Primary Care Provider and Urologist Call non-emergency contact if: your symptoms worsen and your temperature is above 101.5 Follow-up/Referrals: Fidel Peterson MD [Physician] - (THE OFFICE WILL CALL YOU WITH A HOSPITAL FOLLOW UP.) Cristobal Winter MD [Primary Care Provider] - 07/11/24 11:30 am Diet: Carb Consistent or DM2 Ambulatory Orders: Basic Metabolic Panel (Routine) Timeframe: 1 Week Location: Determined by Patient Ordered By: Doretha Cooley Complete Blood Count with Diff (Timed) Timeframe: 1 Week Location: Determined by Patient Ordered By: Doretha Cooley Addtl Attending Provider Instructions: You were admitted due to a fluid collection that was noted in or close to your prostate that was thought to be related to an abscess (essentially an enc apsulated infection) or a collection of blood/fluid that got infected, which we believe may have come as a consequence to your recent prostate biopsy. We spoke with the Urologist team who believe that, based on its location, it would be difficult to remove with a procedure, and therefore were recommending treatment with an antibiotic. You received 2 days of intravenous antibiotics, and today we will be switching you to oral antibiotics. We find you stable to be discharged home. We do advise you follow up with your Urologist and your Primary Care Provider to ensure you continue to improve. We will be sending a script for an antibiotic called Bactrim, which you should take by mouth twice a day (morning and night) with food and water. We will be sending a script for 14 days (2 weeks), but depending on what the Urologist sees, may be extended for a longer duration. As discussed, we will also be sending a script for Tramadol to your pharmacy to help with control of pain. This is an opiate pain medication, and can have as a side effect possible drowsiness and constipation. You can use Miralax daily to prevent or treat constipation if it develops. We advise you refrain from operating heavy machinery or driving when you take this medication. We also discussed remedies you could use to help you with sleep. You can use a medication called Melatonin, which is similar to a neurochemical we produce in our body to help with sleep. If you feel pain and take a dose of Tramadol before going to bed, this can also make you drowsy and make you fall asleep, though it should be used for the purpose of pain control and not be used only as a sleep aid. We also advise you to have labs done 1 week after discharge (CBC, BMP) to ensure that the antibiotic you will be taking is not affecting your kidneys and ensure your white blood cells (immune cells) continue to decrease while on this therapy. A discharge summary will be sent to your primary care physician to ensure continuity of care. Please bring this discharge summary with you to your next office appointment so that your provider can review it at that time. Medications: Your medication list has been reviewed and reconciled upon discharge to ensure accuracy and continuity of care. An updated list of all your medications is included with your hospital discharge paperwork. Please review this list closely, and make note of any changes. CONTACT YOUR PRIMARY CARE PROVIDER if you experience any of the following: Worsening of symptoms Fever, chills, or fatigue Difficulty following your treatment plan, or difficulty taking medications CALL 911 OR GO TO THE EMERGENCY DEPARTMENT if you experience any of the following: Sudden, severe abdominal pain or nausea/vomiting Severe chest pain, or chest pain that radiates (moves) to your jaw or arm Sudden, severe shortness of breath or difficulty breathing Thank you for allowing us to participate in your care. Pending Studies at Discharge: No Stand-Alone Forms: My [facility] [address] Mobile, Smoking Cessation Medications and DC Order Prescriptions: New sulfamethoxazole-trimethoprim [Bactrim DS] 800-160 mg tablet 1 tab PO BID 14 Days Qty: 28 0RF Continued rosuvastatin 20 mg tablet 20 mg PO QPM Qty: 90 3RF Ozempic 0.25 mg or 0.5 mg (2 mg/3 mL) pen injector 0.5 mg subcut WK Qty: 3 11RF Rx Instructions: SUNDAY, PATIENT REPORTED HE TAKES ABOUT "0.4MG" omeprazole 20 mg capsule,delayed release(DR/EC) 20 mg PO DAILY Qty: 90 3RF irbesartan 75 mg tablet 75 mg PO QAM Qty: 90 3RF metoprolol succinate 50 mg tablet extended release 24 hr 50 mg PO QPM Qty: 90 3RF clopidogrel 75 mg tablet 75 mg PO DAILY Qty: 90 3RF tadalafil 5 mg tablet 5 mg PO DAILY Qty: 90 3RF Rx Instructions: do not take if using nitroglycerin hydrochlorothiazide 12.5 mg tablet 12.5 mg PO DAILY Qty: 90 3RF ondansetron HCl 4 mg tablet 4 mg PO Q8H PRN (Reason: Nausea And Vomiting) docusate sodium [Colace] 100 mg capsule 100 mg PO DAILY PRN (Reason: Constipation) Aceris 3D Inspection 3 billion cell capsule 1 cap PO QAM aspirin 81 mg tablet,delayed release (DR/EC) 81 mg PO QPM acetaminophen [Tylenol Extra Strength] 500 mg Tablet 1,000 mg PO Q4-5H PRN (Reason: Pain) coenzyme Q10 [CoQ-10] 100 mg Capsule 100 mg PO QAM cholecalciferol (vitamin D3) [Vitamin D3] 125 mcg (5,000 unit) Tablet 125 mcg PO QAM multivitamin Tablet 1 tab PO QAM Rx Instructions: PATIENT PREFERS VITAMIN WITHOUT MINERALS ferrous sulfate 325 mg (65 mg iron) Tablet 325 mg PO QAM tamsulosin 0.4 mg capsule 0.4 mg PO BID Discharge Orders: Discharge Order (Routine); Ordered 07/03/24 Ordered By: Doretha Cooley Admission Data Admit Date/Time: 06/30/24 19:57 Attending Provider: Brain oMreno Admit Provider: Kiley العراقي Primary Care Provider: Cristobal Winter Other Providers: Fidel Peterson; Kiley العراقي Other Interventions: Discharge Summary Assessment (RN) Last Done: 07/03/24 15:11 Supervising Attestation ATTESTATION Iwas present with the above student during the history and physical examination of this patient. I have personally performed the physical exam and decision making activities related to the patients care. I have reviewed and agree with the findings and plan as documented in the students note. Any exceptions or clarifications are listed here I also saw the patient and completed a clinical history and exam. Patient without complaints today. Feeling well. He is interested in going home. Denies fevers/chills. No pain at present. EXAM Afebrile and hemodynamically stable. Alert and oriented. NAD CV regular Respirations non labored DATA Labs WBC decreased to 13.89 BUN 12/Cr 1.21 (now normalized) Imaging CT scan upon admission reviewed - prostate findings as noted; pulmonary nodules suspicious for metastatic disease Micro Blood cultures negative at 48 hours. Urine culture no growth. (both after initiation of antibiotics) IMPRESSION & PLAN Prostate abscess versus hematoma Prostate CA Acute Kidney Failure, resolved Appreciate urology consultation; outpatient follow up arranged. Change to Bactrim BID for extended period - likely four weeks. Will d/c with two weeks, which will get him to his urology appointment. Discussed s/s for which to monitor Has PET scan next CBC and BMP in 5-7 days Additional per resident documentation Brain Cortez DO, attending physician, spent 25 minutes myself seeing the patient, reviewing the chart, and documenting today. Resident Activity Tracking Resident Involvement: Resident Care Provided Care Provided: Adult [facility] Medicine Resident Supervision Co-Signing Physician Notes Resident Attestation I was personally present during medical student and patient encounter and independently interviewed and examined the patient and verified the blake history and physical, reviewed labs and image studies, discussed the case with Jorge Morrison (), and agree with the above mentioned findings and care plan.
== END 2024-07-03 16:05 | disposition home or self-care (01) | DRG 728 ==
LOC: ED 15:17 → SUATTDRO 19:57 → 3N 19:57
DX: Z88.8 Allergy status to other drugs, medicaments and biological substances; N41.2 Abscess of prostate; Z95.1 Presence of aortocoronary bypass graft; Z79.85 Long-term (current) use of injectable non-insulin antidiabetic drugs; I25.10 Atherosclerotic heart disease of native coronary artery without angina pectoris; C61 Malignant neoplasm of prostate; Z95.5 Presence of coronary angioplasty implant and graft; Z91.048 Other nonmedicinal substance allergy status; N17.9 Acute kidney failure, unspecified; Z79.82 Long term (current) use of aspirin; E78.5 Hyperlipidemia, unspecified; R91.8 Other nonspecific abnormal finding of lung field; N40.1 Benign prostatic hyperplasia with lower urinary tract symptoms; K21.9 Gastro-esophageal reflux disease without esophagitis; Z79.899 Other long term (current) drug therapy; E03.9 Hypothyroidism, unspecified; E11.9 Type 2 diabetes mellitus without complications; Z66 Do not resuscitate